=== PATIENT | female | born 1985 | race Caucasian/White ===

== ENCOUNTER 2019-11-19 17:24 | Emergency (ER) | payer OTHER, SELFPAY ==
--- NOTE | ~2019-11-19 | XR_ITS ---
EXAMINATION: XR ankle LT min 3V EXAM DATE: 11/19/2019 17:46 INDICATION: Initial encounter following injury, with pain of the left ankle. TECHNIQUE: Left ankle frontal, lateral and oblique projections obtained and reviewed. There is no pr ior study for comparison. FINDINGS: The left ankle mortise appears intact. Small posterior calcaneal spur. There are no acu te fractures or dislocations identified. There is no subcutaneous gas. The soft tissue is unremarka ble. There are no radiopaque foreign bodies. IMPRESSION: No acute osseous findings. Reviewed, dictated and finalized at location A. IMPRESSION: No acute osseous findings.
[2019-11-19 17:32] VITALS: BP 152/89; PULSE 116; RESP 20; TEMP 36.8; O2SAT 98
--- NOTE | 2019-11-19 17:58 | ED.LOWEXIN ---
HPI - Extremity Injury (Lower) General Chief Complaint: Extremity Injury, Lower Stated Complaint: left ankle swollen/painful Time Seen by Provider: 11/19/19 17:58 Source: patient and RN notes reviewed Mode of arrival: ambulatory Limitations: no limitations History of Present Illness HPI Narrative: 33 old female presents with left ankle injury. Reports prior to arrival she was helping her daughter off of the wall and the daughter fell on her ankle. Reports ankle twisted. Reports pain with walking. Reports swelling. Denies numbness, tingling, decreased range of motion of the digits. MD complaint: ankle injury Related Data Home Medications Medication Instructions Recorded Confirmed No Home Medications 11/19/19 11/19/19 Allergies Allergy/AdvReac Type Severity Reaction Status Date / Time Penicillins Allergy Unknown Hives Verified 11/19/19 17:39 Review of Systems Review of Systems: Narrative: CONSTITUTIONAL: Denies malaise, chills, sweats, or fever. SKIN: Denies redness, bruising MUSCULOSKELETAL: Reports left ankle swelling, pain NEUROLOGIC: Denies numbness, weakness. All systems reviewed & are unremarkable except as noted in HPI and below PMFSH Past Medical History Medical History (Updated 11/19/19 @ 18:00 by María Olguin NP) Hx gestational diabetes Social History Social History Smoking status: Current every day smoker Smoking end date: 05/28/11 Alcohol intake: current Comments At time of signature, agree with nursing past medical, surgical, social and family history. There is no relevant family history pertinent to the presenting complaint Exam Narrative: Exam Narrative: GENERAL: Well-appearing, well-nourished, and in no acute distress. HEAD: Normocephalic, atraumatic. EYES: PERRLA, conjunctivae clear NECK: Supple. CHEST: Speaks in full sentences. No respiratory distress. HEART: Regular rate and rhythm. Normal and equal peripheral pulses. EXTREMITIES: Left ankle, foot, digits have normal strength and sensation, normal range of motion. 5/5 strength with digit flexion and extension. Normal sensation with sensitivity to light touch and pain. Mild medial edema, general tenderness. No open wounds, no skin tenting, no devitalized tissue or atrophy, no trophic changes, no ecchymosis, no obvious deformity, alignment normal, no point tenderness, nearby joints and structures intact. Distal pulses palpable and equal bilaterally, skin warm, dry, pink. Capillary refill less than 3 seconds. SKIN: Warm, dry, no rash. NEURO: Alert and oriented x3. PSYCH: Normal mood and affect Course Course Emergency Course: Patient is aware of diagnosis, understands and agrees to treatment plan. Anticipatory guidance given. Patient agrees to follow-up as directed and is aware of reasons to seek care at the emergency department. Portions of this record may have been created with voice recognition software Vital Signs Vital signs: Vital Signs Temperature 98.3 F 11/19/19 17:32 Pulse Rate 116 H 11/19/19 17:32 Respiratory Rate 20 11/19/19 17:32 Blood Pressure 152/89 H 11/19/19 17:32 Pulse Oximetry 98 11/19/19 17:32 Temperature 98.3 F 11/19/19 17:32 Pulse Rate 116 H 11/19/19 17:32 Respiratory Rate 20 11/19/19 17:32 Blood Pressure 152/89 H 11/19/19 17:32 Pulse Oximetry 98 11/19/19 17:32 Reviewed. Patient has been instructed to follow up with her primary care provider within the next week regarding her elevated blood pressure today. MDM - Extremity Injury (Lower) MDM Narrative Medical decision making narrative: Patients injury and pain is consistent with musculoskeletal etiology. No signs of neurological or vascular compromise on exam. Compartments and tissues are soft without signs of compartment syndrome. Pain is felt appropriate for further evaluation on an outpatient basis. Imaging Data My impression: Images reviewed, interpreted by
--- NOTE | 2019-11-19 18:16 | PC.NURSE ---
PT TAKEN TO RADIOLOGY IN WHEELCHAIR
== END 2019-11-19 18:07 | disposition home or self-care (01) ==
PROVIDERS: Emergency Provider Nurse Practitioner; PCP Family Medicine
DX: S93.402A Sprain of unspecified ligament of left ankle, initial encounter (principal); S96.912A Strain of unspecified muscle and tendon at ankle and foot level, left foot, initial encounter; F17.200 Nicotine dependence, unspecified, uncomplicated; R03.0 Elevated blood-pressure reading, without diagnosis of hypertension; W51.XXXA Accidental striking against or bumped into by another person, initial encounter
CPT/HCPCS: 73610; 99213; G0463

== ENCOUNTER 2021-09-23 08:41 | Emergency (ER) | payer OTHER, SELFPAY ==
[2021-09-23 08:46] VITALS: BP 138/85; PULSE 92; RESP 14; TEMP 36.8; O2SAT 99
--- NOTE | 2021-09-23 09:26 | ED.URI ---
HPI - URI/Sore Throat General Chief Complaint: Upper Respiratory Infection Stated Complaint: Sinus Congestion/Cough Time Seen by Provider: 09/23/21 09:28 Source: patient, RN notes reviewed and old records reviewed Mode of arrival: ambulatory Limitations: no limitations History of Present Illness HPI Narrative: 35-year-old female who presents to [facility] with complaints of 6-day history of sinus pressure and pain, headache, sore throat, some cough with a burning sensation in her chest. Patient reports she has been taking Mucinex, Flonase, Tylenol and ibuprofen for her symptoms without resolution. Patient did do a COVID test yesterday at home which was negative, has had COVID vaccinations and Flu shot. Patient has history of asthma and seasonal allergies takes daily Symbicort, Zyrtec, and Singulair and has Pro Air rescue inhaler. Patient reports that her cough is dry and she has burning sensation in chest with cough, denies any acute dyspnea episodes. MD elicited complaint: cough, sore throat, rhinorrhea, nasal congestion, sinus pain and other (Sore throat) Pertinent past history: asthma and seasonal allergies Onset (ago): day(s) (6) Consistency: progressively worsening Severity: moderate Description of mucous: clear Able to tolerate fluids by mouth: Yes Associated symptoms: headache, rhinorrhea, nasal congestion, sore throat and cough Treatments prior to arrival: acetaminophen, ibuprofen and other (Mucinex DM, Zyrtec,singulair, symbicort and pro-air inhalers) Related Data Home Medications Medication Instructions Recorded Confirmed levonorgestrel 20 mcg/24 hours (7 1 device I-UTERINE ONCE 01/21/20 09/23/21 yrs) 52 mg intrauterine device Allergies Allergy/AdvReac Type Severity Reaction Status Date / Time Penicillins Allergy Unknown Hives Verified 09/23/21 09:41 Review of Systems Review of Systems: CONSTITUTIONAL: Denies fever, chills, or sweats. EYES: Denies visual changes, redness, or discharge. ENT: Positive rhinorrhea, congestion, sore throat, no otalgia. CARDIOVASCULAR: Denies chest pain, palpitations, or edema. RESPIRATORY: Positive for cough denies dyspnea. GASTROINTESTINAL: Denies abdominal pain, nausea, vomiting, or diarrhea. GENITOURINARY: Denies dysuria or hematuria. SKIN: Denies rash or itching. MUSCULOSKELETAL: Denies back pain, joint pain, or myalgia. NEUROLOGIC: Positive headache,no numbness, or weakness. PSYCHIATRIC: Denies anxiety or depression. All systems reviewed & are unremarkable except as noted in HPI and below PMFSH Past Medical History Medical History (Updated 09/24/21 @ 10:15 by Selena Chase NP) Abnormal colonoscopy diverticulosis Cellulitis of right breast Diverticulitis Hx gestational diabetes Left radial fracture Nausea Surgical History Surgical History (Updated 09/24/21 @ 10:15 by Selena Chase NP) H/O dilation and curettage History of cholecystectomy Family History Family History Father Family history of premature coronary heart disease, Onset Age: 56 Hypertension Family history of cardiovascular disease, Onset Age: 56 Mother Diabetes mellitus Family history of obesity Family history of osteoporosis Depression Hypertension Grandparent Diabetes mellitus Family history of osteoporosis Family history of mental disorder Depression Sibling Depression Hypertension Other Family history of suicide Social History Social History (Updated 09/24/21 @ 10:16 by Selena Chase NP) Smoking status: Current some day smoker Additional smoking assessment comments: in process of quitting Alcohol intake: current Substance use type: does not use Gender identity (if verbalized by the patient): Female Comments At time of signature, agree with nursing past medical, surgical, social and family history. There is no relevant family history pertinent to the presenting complaint E
== END 2021-09-23 10:00 | disposition home or self-care (01) ==
PROVIDERS: Emergency Provider Registered Nurse; PCP Family Medicine
DX: J32.9 Chronic sinusitis, unspecified (principal); J45.909 Unspecified asthma, uncomplicated; F17.200 Nicotine dependence, unspecified, uncomplicated
CPT/HCPCS: 99213; G0463

== ENCOUNTER → 2021-09-27 00:23 | Outpatient (CLI) | payer OTHER, SELFPAY ==
[2021-09-27 11:45] LABS: Influenza A QL RT-PCR Negative (Negative); Influenza B QL RT-PCR Negative (Negative); SARS-CoV-2 RNA PCR Negative
== END ==
PROVIDERS: PCP Family Medicine; Visit Provider Physician Assistant
DX: R50.9 Fever, unspecified (principal); Z20.822 Contact with and (suspected) exposure to COVID-19
CPT/HCPCS: 87502; C9803; U0003; U0005

== ENCOUNTER 2021-11-23 09:39 | Outpatient (RCR) | payer OTHER, SELFPAY ==
[2021-11-23] MEDS: ACETAMINOPHEN 325 MG TABLET 650 MG PO (10:03)
[2021-11-23] MEDS: diphenhydrAMINE HCl CAP 25 MG CAPSULE PO (10:04)
[2021-11-23] MEDS: FAMOTIDINE 20 MG TABLET PO (10:04)
[2021-11-23 10:05] VITALS: BP 125/83; PULSE 72; TEMP 36; O2SAT 100
[2021-11-23] MEDS: BEBTELOVIMAB 175 MG/2 ML VIAL IV PUSH (10:22)
[2021-11-23 11:09] VITALS: BP 135/86; PULSE 70; O2SAT 100
== END 2021-11-23 16:00 ==
LOC: AMCINF 09:39
PROVIDERS: PCP Family Medicine; Referring Provider Family Medicine; Visit Provider Internal Medicine Hematology & Oncology
DX: U07.1 COVID-19 (principal); J44.9 Chronic obstructive pulmonary disease, unspecified
CPT/HCPCS: A9270; M0222; Q0222

== ENCOUNTER 2022-01-11 17:35 | Outpatient (CLI) | payer OTHER, SELFPAY ==
--- NOTE | ~2022-01-11 | XR_ITS ---
EXAMINATION: XR chest 2V DATE: 01/11/2022 17:50 INDICATION: Inferior chest pain. TECHNIQUE: Frontal and lateral views of the chest were obtained. COMPARISON: Chest single view 01/09/2018 FINDINGS: There is no pneumonia, pleural effusion, or pneumothorax. The heart size is normal. Surgica l clips in the right upper quadrant are likely from cholecystectomy. IMPRESSION: 1. No acute cardiopulmonary disease. Reviewed, dictated and finalized at location A.
== END 2022-01-11 17:36 | disposition home or self-care (01) ==
PROVIDERS: PCP Physician Assistant; Visit Provider Physician Assistant
DX: U07.1 COVID-19 (principal); J12.82 Pneumonia due to coronavirus disease 2019
CPT/HCPCS: 71046

== ENCOUNTER 2022-03-30 17:48 | Emergency (ER) | payer OTHER, SELFPAY ==
--- NOTE | ~2022-03-30 | XR_ITS ---
XR chest 2V DATE: 03/30/2022 18:34 INDICATION: Cough, congestion for 2 weeks. Asthma. TECHNIQUE: 2 views COMPARISON: 01/11/2022 PA and lateral chest FINDINGS: Normal heart size. No hilar or mediastinal enlargement. No pulmonary infiltrate or consolid ation, pleural effusion or pulmonary vascular congestion or pneumothorax. Included skeletal structure s are unremarkable. IMPRESSION: No active cardiopulmonary disease Reviewed, dictated and finalized at location A.
[2022-03-30 17:58] VITALS: BP 158/98; PULSE 89; RESP 18; TEMP 36.7; O2SAT 97
--- NOTE | 2022-03-30 18:04 | ED.URI ---
HPI - URI/Sore Throat General Chief Complaint: Upper Respiratory Infection Stated Complaint: Sinus Congestion Time Seen by Provider: 03/30/22 18:20 Source: patient and RN notes reviewed Mode of arrival: ambulatory Limitations: no limitations History of Present Illness HPI Narrative: 36-year-old female presents concern for 16 day history of cough, sinus pressure congestion and pain, bilateral ear pressure, wheezing. She reports she has a history of asthma, she takes daily medications. Reports she had COVID and COVID pneumonia over the summer. She denies shortness of breath. Reports a low-grade temperature. MD elicited complaint: cough and nasal congestion Related Data Home Medications Medication Instructions Recorded Confirmed levonorgestrel 20 mcg/24 hours (8 1 device intrauterine ONCE 01/21/20 03/30/22 yrs) 52 mg intrauterine device (Mirena) Allergies Allergy/AdvReac Type Severity Reaction Status Date / Time Penicillins Allergy Unknown Hives Verified 03/30/22 18:14 Review of Systems Review of Systems: CONSTITUTIONAL: Reports malaise, low-grade fever. EYES: Denies visual changes, redness, or discharge. ENT: Reports rhinorrhea, congestion, sinus pain, otalgia CARDIOVASCULAR: Denies chest pain, palpitations, or edema. RESPIRATORY: Reports cough and wheezing. Denies dyspnea. GASTROINTESTINAL: Denies abdominal pain, nausea, vomiting, diarrhea SKIN: Denies rash or itching. MUSCULOSKELETAL: Denies myalgia. NEUROLOGIC: Reports headache. All systems reviewed & are unremarkable except as noted in HPI and below PMFSH Past Medical History Medical History Abnormal colonoscopy diverticulosis Cellulitis of right breast Diverticulitis Hx gestational diabetes Left radial fracture Nausea Surgical History Surgical History H/O dilation and curettage History of cholecystectomy Family History Family History Father Family history of premature coronary heart disease, Onset Age: 56 Hypertension Family history of cardiovascular disease, Onset Age: 56 Mother Diabetes mellitus Family history of obesity Family history of osteoporosis Depression Hypertension Grandparent Diabetes mellitus Family history of osteoporosis Family history of mental disorder Depression Sibling Depression Hypertension Other Family history of suicide Social History Social History (Reviewed 11/21/21 @ 09:56 by María Hurley [facility] Smoking status: Current some day smoker Additional smoking assessment comments: in process of quitting Alcohol intake: current Substance use type: does not use Gender identity (if verbalized by the patient): Female Comments At time of signature, agree with nursing past medical, surgical, social and family history. There is no relevant family history pertinent to the presenting complaint Exam Narrative: GENERAL: Nontoxic-appearing and in no acute distress. HEAD: Normocephalic EYES: PERRLA, conjunctivae clear ENT: Nares clear, turbinates edematous and erythematous. Mucous membranes moist. TM pearly guadalupe with dull light reflex bilaterally; no tragal tenderness. Oropharynx not erythematous without lesions. Tonsils not enlarged and without exudate, no drooling, no hoarseness, no trismus, uvula midline. NECK: Supple. No lymphadenopathy CHEST: Expiratory wheeze throughout, scattered rhonchi, diminished lung bases bilaterally. No rales, or stridor. No respiratory distress, speaks in full sentences. HEART: Regular rate and rhythm. No murmur heard. SKIN: Warm, dry, no rash. NEURO: Alert and oriented x3. PSYCH: Normal mood and affect Course Course Emergency Course: Patient is aware of diagnosis, understands and agrees to treatment plan. Anticipatory guidance given. Patient agrees to follow-up as directed an
== END 2022-03-30 18:45 | disposition home or self-care (01) ==
PROVIDERS: Emergency Provider Nurse Practitioner; PCP Family Medicine
DX: J32.9 Chronic sinusitis, unspecified (principal); J40 Bronchitis, not specified as acute or chronic; F17.290 Nicotine dependence, other tobacco product, uncomplicated; Z86.16 Personal history of COVID-19
CPT/HCPCS: 71046; 99213; G0463

== ENCOUNTER 2022-06-01 14:30 | Outpatient (RCR) | payer OTHER, SELFPAY ==
--- NOTE | 2022-06-01 15:44 | PCPTNOTE ---
Patient did not show up for scheduled appointment this date.
== END 2022-08-15 08:22 | disposition home or self-care (01) ==
LOC: ANHPT 14:30
PROVIDERS: PCP Family Medicine; Visit Provider Physician Assistant
DX: M54.9 Dorsalgia, unspecified (principal); M79.659 Pain in unspecified thigh
CPT/HCPCS: 99199

== ENCOUNTER 2022-06-15 10:38 | Emergency (ER) | payer OTHER, SELFPAY ==
[2022-06-15 10:38] VITALS: BP 149/78; PULSE 98; RESP 20; TEMP 36.6; O2SAT 99
--- NOTE | 2022-06-15 10:40 | ED.URI ---
HPI - URI/Sore Throat General Chief Complaint: Upper Respiratory Infection Stated Complaint: throat and ear pain Time Seen by Provider: 06/15/22 10:41 Source: patient and RN notes reviewed History of Present Illness HPI Narrative: Patient is a 36-year-old female presents to urgent care with complaints of sore throat left ear pain with headache that started yesterday. Patient has been taking Zyrtec and naproxen for her symptoms. Denies any fever, nausea, vomiting. No other acute complaints. No acute distress noted. Mother aware of the plan of care. Some parts of this dictation were generated by voice recognition software and may contain typographical and/or grammatical inaccuracies. Related Data Home Medications Medication Instructions Recorded Confirmed levonorgestrel 20 mcg/24 hours (8 1 device intrauterine ONCE 01/21/20 06/15/22 yrs) 52 mg intrauterine device (Mirena) montelukast 10 mg tablet 10 mg PO DAILY 06/15/22 06/15/22 trazodone 50 mg tablet 50 mg PO DAILY 06/15/22 06/15/22 Allergies Allergy/AdvReac Type Severity Reaction Status Date / Time Penicillins Allergy Unknown Hives Verified 06/15/22 10:45 Review of Systems Review of Systems: CONSTITUTIONAL: Denies fever, chills, or sweats. EYES: Denies visual changes, redness, or discharge. ENT: Reports of left otalgia and sore throat CARDIOVASCULAR: Denies chest pain, palpitations, or edema. RESPIRATORY: Denies cough or dyspnea. GASTROINTESTINAL: Denies abdominal pain, nausea, vomiting, or diarrhea. GENITOURINARY: Denies dysuria or hematuria. SKIN: Denies rash or itching. MUSCULOSKELETAL: Denies back pain, joint pain, or myalgia. NEUROLOGIC: reports of headache All other systems reviewed are negative, except as documented in HPI. [facility] Past Medical History Medical History Abnormal colonoscopy diverticulosis Cellulitis of right breast Diverticulitis Hx gestational diabetes Left radial fracture Nausea Surgical History Surgical History H/O dilation and curettage History of cholecystectomy Family History Family History Father Family history of premature coronary heart disease, Onset Age: 56 Hypertension Family history of cardiovascular disease, Onset Age: 56 Mother Diabetes mellitus Family history of obesity Family history of osteoporosis Depression Hypertension Grandparent Diabetes mellitus Family history of osteoporosis Family history of mental disorder Depression Sibling Depression Hypertension Other Family history of suicide Social History Social History (Updated 04/24/22 @ 09:07 by Kaylee Armendariz MA) Smoking packs per day: 0.2 Smoking cigarettes per day: 4.0 Smoking status: Current some day smoker Tobacco type: cigarettes Additional smoking assessment comments: in process of quitting Alcohol intake: current Substance use type: does not use Lack of Transportation: No Lack of Food: Never True Current Housing: I Have Housing Concerned About Future Housing: No Difficulty Paying Gas/Electric Bills: No Difficulty Paying for Meds: No Currently Unemployed: No Education: Trade/Vocational Certificate Difficulty w/ Childcare or Family Care: No Gender identity (if verbalized by the patient): Female Comments At the time of my signature, I reviewed and agree with the nursing past medical, surgical, social, and family history. There is no relevant family history pertinent to the patient complaint. Exam Narrative: GENERAL: This is a well-nourished, well-developed patient, in no apparent distress. HEAD: normocephalic, atraumatic. EYES: PERRL. Sclera clear/white. Vision is grossly intact. EARS: External ears normal, auditory canals clear and without drainage, moderate eustachian tube dysfunct
== END 2022-06-15 11:30 | disposition home or self-care (01) ==
PROVIDERS: Emergency Provider Nurse Practitioner Family; PCP Family Medicine
DX: H66.92 Otitis media, unspecified, left ear (principal); J02.0 Streptococcal pharyngitis; F17.210 Nicotine dependence, cigarettes, uncomplicated
CPT/HCPCS: 87880; 99213; G0463

== ENCOUNTER 2022-07-18 16:20 | Emergency (ER) | payer OTHER, SELFPAY ==
[2022-07-18 16:24] VITALS: BP 144/77; PULSE 84; RESP 20; TEMP 36.6; O2SAT 98
--- NOTE | 2022-07-18 17:08 | ED.URI ---
HPI - URI/Sore Throat General Chief Complaint: Upper Respiratory Infection Stated Complaint: Chest Congestion Time Seen by Provider: 07/18/22 17:00 Source: patient, RN notes reviewed and old records reviewed Mode of arrival: ambulatory Limitations: no limitations History of Present Illness HPI Narrative: 36 year old female who [facility] with complaints of sore throat since Sunday, cough which is at times deep and productive with fatigue, headache,body aches, some nasal congestion and drainage fot past .. Patient does have a history of asthma and bronchitis and reports that she has noted some intermittent wheezing.Patient states that she had strep throat about a month ago.Patient reports no known fevers, states that she has been using her inhaler. MD elicited complaint: cough and sore throat Pertinent past history: asthma, seasonal allergies and other (bronchitis) Onset (ago): day(s) (2) Related Data Home Medications Medication Instructions Recorded Confirmed levonorgestrel 21 mcg/24 hours (8 1 device intrauterine ONCE 01/21/20 06/15/22 yrs) 52 mg intrauterine device (Mirena) montelukast 10 mg tablet 10 mg PO DAILY 06/15/22 06/15/22 trazodone 50 mg tablet 50 mg PO DAILY 06/15/22 06/15/22 Allergies Allergy/AdvReac Type Severity Reaction Status Date / Time Penicillins Allergy Unknown Hives Verified 07/18/22 16:25 Review of Systems Review of Systems: CONSTITUTIONAL: Denies malaise, chills, sweats, or fever. EYES: Denies visual changes, redness, or discharge. ENT: Reports rhinorrhea, congestion, sinus pain, no otalgia positive sore throat. CARDIOVASCULAR: Denies chest pain, palpitations, or edema. RESPIRATORY: Reports cough.? Denies dyspnea has noted some wheezing. GASTROINTESTINAL: Denies abdominal pain, nausea, vomiting, diarrhea SKIN: Denies rash or itching. MUSCULOSKELETAL:Reports myalgia. NEUROLOGIC:Reports headache. All systems reviewed & are unremarkable except as noted in HPI and below PMFSH Past Medical History Medical History (Updated 07/20/22 @ 06:58 by Selena Chase NP) Abnormal colonoscopy diverticulosis Asthma Bronchitis Cellulitis of right breast Diverticulitis Hx gestational diabetes Left radial fracture Nausea Surgical History Surgical History H/O dilation and curettage History of cholecystectomy Family History Family History Father Family history of premature coronary heart disease, Onset Age: 56 Hypertension Family history of cardiovascular disease, Onset Age: 56 Mother Diabetes mellitus Family history of obesity Family history of osteoporosis Depression Hypertension Grandparent Diabetes mellitus Family history of osteoporosis Family history of mental disorder Depression Sibling Depression Hypertension Other Family history of suicide Social History Social History Smoking packs per day: 0.2 Smoking cigarettes per day: 4.0 Smoking status: Current some day smoker Tobacco type: cigarettes Additional smoking assessment comments: in process of quitting Alcohol intake: current Substance use type: does not use Lack of Transportation: No Lack of Food: Never True Current Housing: I Have Housing Concerned About Future Housing: No Difficulty Paying Gas/Electric Bills: No Difficulty Paying for Meds: No Currently Unemployed: No Education: Trade/Vocational Certificate Difficulty w/ Childcare or Family Care: No Gender identity (if verbalized by the patient): Female Comments At time of signature, agree with nursing past medical, surgical, social and family history. There is no relevant family history pertinent to the presenting complaint Exam Narrative: GENERAL: Well-appearing, well-nourished, and in no acute distress.
== END 2022-07-18 17:41 | disposition home or self-care (01) ==
PROVIDERS: Emergency Provider Registered Nurse; PCP Family Medicine
DX: J06.9 Acute upper respiratory infection, unspecified (principal); R05.9 Cough, unspecified; F17.210 Nicotine dependence, cigarettes, uncomplicated; J45.909 Unspecified asthma, uncomplicated
CPT/HCPCS: 87081; 87880; 99213; G0463

== ENCOUNTER 2022-10-01 13:37 | Emergency (ER) | payer OTHER, SELFPAY ==
[2022-10-01 13:41] VITALS: BP 126/77; PULSE 82; RESP 20; TEMP 36.6; O2SAT 98
--- NOTE | 2022-10-01 14:08 | ED.GENADULT ---
HPI - General Adult General Chief complaint: Upper Respiratory Infection Stated complaint: sore throat / ears Source: patient Mode of arrival: ambulatory Limitations: no limitations History of Present Illness HPI narrative: Patient presents for evaluation of sick symptoms for last 2 days. Symptoms include sore throat and ear pain. No fever, chills, nausea, vomiting, diarrhea. Her daughter is being evaluated here for similar symptoms. Patient does have a mild cough. She has tried taking Erin-D, Flonase, Tylenol, ibuprofen for symptoms with only mild relief thereafter. No additional complaints or concerns. Related Data Home Medications Medication Instructions Recorded Confirmed levonorgestrel 21 mcg/24 hours (8 1 device intrauterine ONCE 01/21/20 10/01/22 yrs) 52 mg intrauterine device (Mirena) montelukast 10 mg tablet 10 mg PO DAILY 06/15/22 10/01/22 trazodone 50 mg tablet 50 mg PO DAILY 06/15/22 10/01/22 Allergies Allergy/AdvReac Type Severity Reaction Status Date / Time Penicillins Allergy Unknown Hives Verified 10/01/22 14:04 Review of Systems Review of Systems: CONSTITUTIONAL: Denies fever, chills, or sweats. EYES: Denies visual changes, redness, or discharge. ENT: Reports sore throat and bilateral ear pain. CARDIOVASCULAR: Denies chest pain, palpitations, or edema. RESPIRATORY: Reports cough. Denies shortness of breath. GASTROINTESTINAL: Denies abdominal pain, nausea, vomiting, or diarrhea. GENITOURINARY: Denies dysuria or hematuria. SKIN: Denies rash or itching. MUSCULOSKELETAL: Denies back pain, joint pain, or myalgia. NEUROLOGIC: Denies headache, numbness, dizziness, or weakness. PSYCHIATRIC: Denies anxiety or depression. [facility] Past Medical History Medical History (Updated 10/01/22 @ 14:11 by JOSHUA Clements, TERRIE) Abnormal colonoscopy diverticulosis Asthma Bronchitis Cellulitis of right breast Diverticulitis Hx gestational diabetes Left radial fracture Nausea Surgical History Surgical History H/O dilation and curettage History of History of cholecystectomy Family History Family History Father Family history of premature coronary heart disease, Onset Age: 56 Hypertension Family history of cardiovascular disease, Onset Age: 56 Mother Diabetes mellitus Family history of obesity Family history of osteoporosis Depression Hypertension Grandparent Diabetes mellitus Family history of osteoporosis Family history of mental disorder Depression Sibling Depression Hypertension Sibling Suicide Other Suicide Other Family history of suicide Social History Social History Smoking packs per day: 0.2 Smoking cigarettes per day: 4.0 Smoking status: Current some day smoker Tobacco type: cigarettes Additional smoking assessment comments: in process of quitting Alcohol intake: current Substance use type: does not use Lack of Transportation: No Lack of Food: Never True Current Housing: I Have Housing Concerned About Future Housing: No Difficulty Paying Gas/Electric Bills: No Difficulty Paying for Meds: No Currently Unemployed: No Education: Trade/Vocational Certificate Difficulty w/ Childcare or Family Care: No Gender identity (if verbalized by the patient): Female Exam Narrative: GENERAL: Well-appearing, well-nourished, and in no acute distress. HEAD: Normocephalic, atraumatic. EYES: PERRLA and EOMI. ENT: Nares clear, no rhinorrhea or epistaxis. Mucous membranes moist. Posterior pharyngeal erythema and white exudate. Uvula is midline. Bilateral TMs pearly guadalupe nonbulging NECK: Supple. No adenopathy or masses. No carotid bruits or JVD CHEST: Clear to auscultation. No respiratory distress. No whe
== END 2022-10-01 14:23 | disposition home or self-care (01) ==
PROVIDERS: Emergency Provider Nurse Practitioner; PCP Family Medicine
DX: J02.0 Streptococcal pharyngitis (principal); F17.210 Nicotine dependence, cigarettes, uncomplicated; J45.909 Unspecified asthma, uncomplicated
CPT/HCPCS: 87880; 99213; G0463

== ENCOUNTER 2023-01-26 08:06 | Emergency (ER) | payer OTHER, SELFPAY ==
[2023-01-26 08:12] VITALS: BP 133/80; PULSE 85; RESP 14; TEMP 36.7; O2SAT 99
--- NOTE | 2023-01-26 08:13 | ED.URI ---
HPI - URI/Sore Throat General Chief Complaint: Upper Respiratory Infection Stated Complaint: sinus Infection Time Seen by Provider: 01/26/23 08:11 Source: patient and RN notes reviewed Mode of arrival: ambulatory Limitations: no limitations History of Present Illness HPI Narrative: 37-year-old female presents with concern of for a day history of sinus congestion, pressure, pain, headache. She reports temperature of 100?. She she has been taking Sudafed reports she has been taking Erin D, Mucinex DM and Flonase without relief. MD elicited complaint: nasal congestion and sinus pain Related Data Home Medications Medication Instructions Recorded Confirmed levonorgestrel 21 mcg/24 hours (8 1 device intrauterine ONCE 01/21/20 01/26/23 yrs) 52 mg intrauterine device (Mirena) albuterol sulfate 90 mcg/actuation 2 puff inhalation QID 01/26/23 01/26/23 aerosol inhaler (ProAir HFA) budesonide-formoterol HFA 160 2 puff inhalation Q12H 01/26/23 01/26/23 mcg-4.5 mcg/actuation aerosol inhaler (Symbicort) cyclobenzaprine 5 mg tablet 5 mg PO TID PRN Muscle Spasm 01/26/23 01/26/23 Allergies Allergy/AdvReac Type Severity Reaction Status Date / Time Penicillins Allergy Unknown Hives Verified 01/26/23 08:22 Review of Systems Review of Systems: CONSTITUTIONAL: Reports malaise, low-grade fever. EYES: Denies visual changes, redness, or discharge. ENT: Reports rhinorrhea, congestion, sinus pain. Denies otalgia and sore throat. CARDIOVASCULAR: Denies chest pain, palpitations, or edema. RESPIRATORY: Denies cough. Denies dyspnea. GASTROINTESTINAL: Denies abdominal pain, nausea, vomiting, diarrhea SKIN: Denies rash or itching. MUSCULOSKELETAL: Denies myalgia. NEUROLOGIC: Reports headache. All systems reviewed & are unremarkable except as noted in HPI and below PMFSH Past Medical History Medical History (Updated 01/26/23 @ 08:29 by María Olguin NP) Abnormal colonoscopy diverticulosis Asthma Bronchitis Cellulitis of right breast Diverticulitis Hx gestational diabetes Left radial fracture Nausea Surgical History Surgical History H/O dilation and curettage History of History of cholecystectomy Family History Family History Father Family history of premature coronary heart disease, Onset Age: 56 Hypertension Family history of cardiovascular disease, Onset Age: 56 Mother Diabetes mellitus Family history of obesity Family history of osteoporosis Depression Hypertension Grandparent Diabetes mellitus Family history of osteoporosis Family history of mental disorder Depression Sibling Depression Hypertension Sibling Suicide Other Suicide Other Family history of suicide Social History Social History Smoking packs per day: 0.2 Smoking cigarettes per day: 4.0 Smoking status: Current some day smoker Tobacco type: cigarettes Additional smoking assessment comments: in process of quitting Alcohol intake: current Substance use type: does not use Lack of Transportation: No Lack of Food: Never True Current Housing: I Have Housing Concerned About Future Housing: No Difficulty Paying Gas/Electric Bills: No Difficulty Paying for Meds: No Currently Unemployed: No Education: Trade/Vocational Certificate Difficulty w/ Childcare or Family Care: No Gender identity (if verbalized by the patient): Female Comments At time of signature, agree with nursing past medical, surgical, social and family history. There is no relevant family history pertinent to the presenting complaint Exam Narrative: GENERAL: Well-appearing, well-nourished, and in no acute distress. HEAD: Normocephalic EYES: PERRLA, conjunctivae clear ENT: Nares clear, turbina
== END 2023-01-26 08:31 | disposition home or self-care (01) ==
PROVIDERS: Emergency Provider Nurse Practitioner; PCP Family Medicine
DX: J01.90 Acute sinusitis, unspecified (principal); B96.89 Other specified bacterial agents as the cause of diseases classified elsewhere; J45.909 Unspecified asthma, uncomplicated; F17.210 Nicotine dependence, cigarettes, uncomplicated
CPT/HCPCS: 99213; G0463

== ENCOUNTER 2023-04-24 10:22 | Outpatient (CLI) | payer OTHER, SELFPAY ==
[2023-04-24 13:46] LABS: Anion Gap 8 mmol/L (8-16); Blood Urea Nitrogen 8 mg/dL (7-17); Calcium 9.1 mg/dL (8.4-10.2); Carbon Dioxide 27 mmol/L (22-30); Chloride 106 mmol/L (98-107); Cholesterol 174 mg/dL (0-200); Estimated Glomerular Filt Rate > 60; Glucose 75 mg/dL (65-110); HDL Direct 40 mg/dL; Potassium 4.3 mmol/L (3.4-5.0); Sodium 141 mmol/L (137-145); Triglycerides 130 mg/dL (<150)
[2023-04-24 13:58] LABS: LDL Cholesterol Direct 108 mg/dL
== END 2023-04-24 10:23 | disposition home or self-care (01) ==
LOC: ANHGOSHLAB 10:24
PROVIDERS: PCP Family Medicine; Visit Provider Family Medicine
DX: R07.9 Chest pain, unspecified (principal)
CPT/HCPCS: 36415; 80048; 80061; 84443

== ENCOUNTER 2023-04-29 08:32 | Emergency (ER) | payer OTHER, SELFPAY ==
[2023-04-29 08:40] VITALS: BP 167/94; PULSE 71; RESP 20; TEMP 36.3; O2SAT 97
--- NOTE | 2023-04-29 09:18 | ED.GENADULT ---
HPI - General Adult General Chief complaint: Upper Respiratory Infection Stated complaint: sore throat,ear ache,sinus yolanda Source: patient Mode of arrival: ambulatory Limitations: no limitations History of Present Illness HPI narrative: Patient presents for evaluation of sick symptoms for last 5 days. She initially had pain in her left ear. She then developed a sore throat and left sided cervical lymphadenopathy. She developed a fever, with reported temp of 101F at home. She has a mild cough. Denies SOB. No chills, nausea, vomiting, diarrhea, hearing loss, drainage from the ears and tinnitus. She has done salt water gargles. She does admit to vaping. Related Data Home Medications Medication Instructions Recorded Confirmed levonorgestrel 21 mcg/24 hours (8 1 device intrauterine ONCE 01/21/20 04/29/23 yrs) 52 mg intrauterine device (Mirena) cetirizine 10 mg tablet (Zyrtec) 10 mg PO DAILY 04/29/23 04/29/23 trazodone 50 mg tablet 50 mg PO HS 04/29/23 04/29/23 Allergies Allergy/AdvReac Type Severity Reaction Status Date / Time Penicillins Allergy Unknown Hives Verified 04/29/23 08:53 Review of Systems Review of Systems: CONSTITUTIONAL:Reports fever. Denies chills, or sweats. EYES: Denies visual changes, redness, or discharge. ENT: Reports left sided ear pain, sore throat and left sided cervical lymphadenopathy CARDIOVASCULAR: Denies chest pain, palpitations, or edema. RESPIRATORY: Reports cough. Denies SOB> GASTROINTESTINAL: Denies abdominal pain, nausea, vomiting, or diarrhea. GENITOURINARY: Denies dysuria or hematuria. SKIN: Denies rash or itching. MUSCULOSKELETAL: Denies back pain, joint pain, or myalgia. NEUROLOGIC: Denies headache, numbness, dizziness, or weakness. PSYCHIATRIC: Denies anxiety or depression. [facility] Past Medical History Medical History Abnormal colonoscopy diverticulosis Asthma Bronchitis Cellulitis of right breast Diverticulitis Hx gestational diabetes Left radial fracture Nausea Surgical History Surgical History H/O dilation and curettage History of History of cholecystectomy Family History Family History Father Family history of premature coronary heart disease, Onset Age: 56 Hypertension Family history of cardiovascular disease, Onset Age: 56 Mother Diabetes mellitus Family history of obesity Family history of osteoporosis Depression Hypertension Grandparent Diabetes mellitus Family history of osteoporosis Family history of mental disorder Depression Sibling Depression Hypertension Sibling Suicide Other Suicide Other Family history of suicide Social History Social History Smoking status: Current every day smoker Tobacco type: e-cigarettes/vaping Additional smoking assessment comments: in process of quitting Alcohol intake: current Alcohol use details: rarely Substance use: never Substance use type: does not use Lack of Transportation: No Lack of Food: Never True Current Housing: I Have Housing Concerned About Future Housing: No Difficulty Paying Gas/Electric Bills: No Difficulty Paying for Meds: No Currently Unemployed: No Education: Trade/Vocational Certificate Difficulty w/ Childcare or Family Care: No Gender identity (if verbalized by the patient): Female Exam Narrative: GENERAL: Well-appearing, well-nourished, and in no acute distress. HEAD: Normocephalic, atraumatic. EYES: PERRLA and EOMI. ENT: Nares clear, no rhinorrhea or epistaxis. Mucous membranes moist. Posterior pharyngeal erythema without exudate. Uvula is midline. Right TM pearly guadalupe nonbulging. Left TM is erythematous and bulging with visible a
== END 2023-04-29 09:18 | disposition home or self-care (01) ==
PROVIDERS: Emergency Provider Nurse Practitioner; PCP Family Medicine
DX: H66.92 Otitis media, unspecified, left ear (principal); F17.290 Nicotine dependence, other tobacco product, uncomplicated; J45.909 Unspecified asthma, uncomplicated
CPT/HCPCS: 87081; 87880; 99213; G0463

== ENCOUNTER 2023-07-01 09:10 | Emergency (ER) | payer OTHER, SELFPAY ==
[2023-07-01 09:19] VITALS: BP 150/76; PULSE 97; RESP 20; TEMP 36.7; O2SAT 97
--- NOTE | 2023-07-01 09:53 | ED.URI ---
HPI - URI/Sore Throat General Chief Complaint: Upper Respiratory Infection Stated Complaint: Chest Congestion/Sinus Congestion/Ear Pain Time Seen by Provider: 07/01/23 09:53 Source: patient Mode of arrival: ambulatory Limitations: no limitations History of Present Illness HPI Narrative: 37 year old female presents to express care with complaints of sinus pressure with congestion, right ear pain., cough with some noted wheezing. Patient reports she seen her physician on 06/21 and was placed on antibiotic and steroid which she completed but does not feel like she is getting better. Patient has been using her inhaler and has also been taking Erin D for her sinus congestion and drainage. Patient denies any body aches any chills or fevers. MD elicited complaint: cough, rhinorrhea, nasal congestion and other (Right ear pain) Pertinent past history: asthma and seasonal allergies Onset (ago): week(s) (2) Pain scale (0-10): 5 Able to tolerate fluids by mouth: Yes Treatments prior to arrival: other (inhaler AllegraD) Related Data Home Medications Medication Instructions Recorded Confirmed levonorgestrel 21 mcg/24 hours (8 1 device intrauterine ONCE 01/21/20 07/01/23 yrs) 52 mg intrauterine device (Mirena) Allergies Allergy/AdvReac Type Severity Reaction Status Date / Time Penicillins Allergy Unknown Hives Verified 07/01/23 09:33 Review of Systems Review of Systems: CONSTITUTIONAL: Denies malaise, chills, sweats, or fever. EYES: Denies visual changes, redness, or discharge. ENT: Reports rhinorrhea, congestion, sinus pain,right otalgia and no sore throat. CARDIOVASCULAR: Denies chest pain, palpitations, or edema. RESPIRATORY: Reports cough.? Denies acute dyspnea, some noted wheezing. GASTROINTESTINAL: Denies abdominal pain, nausea, vomiting, diarrhea SKIN: Denies rash or itching. MUSCULOSKELETAL: Denies myalgia. NEUROLOGIC: Denies headache. All systems reviewed & are unremarkable except as noted in HPI and below PMFSH Past Medical History Medical History Abnormal colonoscopy diverticulosis Asthma Bronchitis Cellulitis of right breast Diverticulitis Hx gestational diabetes Left radial fracture Nausea Surgical History Surgical History H/O dilation and curettage History of History of cholecystectomy Family History Family History Father Family history of premature coronary heart disease, Onset Age: 56 Hypertension Family history of cardiovascular disease, Onset Age: 56 Mother Diabetes mellitus Family history of obesity Family history of osteoporosis Depression Hypertension Grandparent Diabetes mellitus Family history of osteoporosis Family history of mental disorder Depression Sibling Depression Hypertension Sibling Suicide Other Suicide Other Family history of suicide Social History Social History Smoking status: Current every day smoker Tobacco type: e-cigarettes/vaping Additional smoking assessment comments: in process of quitting Alcohol intake: current Alcohol use details: rarely Substance use: never Substance use type: does not use Lack of Transportation: No Lack of Food: Never True Current Housing: I Have Housing Concerned About Future Housing: No Difficulty Paying Gas/Electric Bills: No Difficulty Paying for Meds: No Currently Unemployed: No Education: Trade/Vocational Certificate Difficulty w/ Childcare or Family Care: No Gender identity (if verbalized by the patient): Female Comments At time of signature, agree with nursing past medical, surgical, social and family history. There is no relevant family history pertinent to the presenting complaint
== END 2023-07-01 10:18 | disposition home or self-care (01) ==
PROVIDERS: Emergency Provider Registered Nurse; PCP Family Medicine
DX: H66.91 Otitis media, unspecified, right ear (principal); J40 Bronchitis, not specified as acute or chronic; F17.290 Nicotine dependence, other tobacco product, uncomplicated; J45.909 Unspecified asthma, uncomplicated
CPT/HCPCS: 99213; G0463

== ENCOUNTER 2024-01-30 08:26 | Emergency (ER) | payer OTHER, SELFPAY ==
[2024-01-30 08:32] VITALS: BP 135/78; PULSE 74; RESP 18; TEMP 36.7; O2SAT 99
--- NOTE | 2024-01-30 08:34 | ED.ABDPAIN ---
HPI - Abdominal Pain General Chief Complaint: Abdominal Pain Stated Complaint: Abdominal Pain Time Seen by Provider: 01/30/24 09:05 Source: patient and RN notes reviewed Mode of arrival: ambulatory Limitations: no limitations History of Present Illness HPI narrative: 38-year-old female presents concern for left lower quadrant abdominal pain, diarrhea. Reports history of diverticulitis. Reports nausea without vomiting. Reports the pain comes in wheeze. Reports a feel like contractions. She started liquid diet yesterday. MD elicited complaint: abdominal pain Related Data Home Medications Medication Instructions Recorded Confirmed trazodone 50 mg tablet 50 mg PO HS PRN Insomnia 01/30/24 01/30/24 Allergies Allergy/AdvReac Type Severity Reaction Status Date / Time Penicillins Allergy Unknown Hives Verified 08/30/23 14:58 Review of Systems Review of Systems: CONSTITUTIONAL: Denies malaise, chills, sweats, or fever. ENT: Denies rhinorrhea, congestion, sinus pain, otalgia or sore throat. CARDIOVASCULAR: Denies chest pain, palpitations, or edema. RESPIRATORY: Denies cough or dyspnea. GASTROINTESTINAL: Reports left lower quadrant abdominal pain, nausea, diarrhea. Denies vomiting GENITOURINARY: Denies dysuria or hematuria. MUSCULOSKELETAL: Denies myalgia. NEUROLOGIC: Denies headache. All systems reviewed & are unremarkable except as noted in HPI and below PMFSH Past Medical History Medical History Abnormal colonoscopy diverticulosis Asthma Bronchitis Cellulitis of right breast Diverticulitis Hx gestational diabetes Left radial fracture Nausea Surgical History Surgical History H/O dilation and curettage History of History of cholecystectomy Family History Family History Father Family history of premature coronary heart disease, Onset Age: 56 Hypertension Family history of cardiovascular disease, Onset Age: 56 Mother Diabetes mellitus Family history of obesity Family history of osteoporosis Depression Hypertension Grandparent Diabetes mellitus Family history of osteoporosis Family history of mental disorder Depression Sibling Depression Hypertension Sibling Suicide Other Suicide Other Family history of suicide Social History Social History (Updated 08/30/23 @ 15:01 by Alicia Helm MA) Smoking packs per day: 0.5 Smoking cigarettes per day: 10.0 Smoking status: Current every day smoker Tobacco type: cigarettes Additional smoking assessment comments: in process of quitting Alcohol intake: current Alcohol use details: rarely Substance use: never Substance use type: does not use Do You Feel Safe in your Home?: Yes Lack of Transportation: No Lack of Food: Never True Current Housing: I Have Housing Concerned About Future Housing: No Difficulty Paying Gas/Electric Bills: No Difficulty Paying for Meds: No Currently Unemployed: No Education: Trade/Vocational Certificate Difficulty w/ Childcare or Family Care: No Gender identity (if verbalized by the patient): Female Comments At time of signature, agree with nursing past medical, surgical, social and family history. There is no relevant family history pertinent to the presenting complaint Exam Narrative: GENERAL: Well-appearing, well-nourished, and in no acute distress. HEAD: Normocephalic, atraumatic. EYES: PERRLA, conjunctivae clear, and EOMI. ENT: Nares clear, turbinates pink, no rhinorrhea or epistaxis. Mucous membranes moist. Oropharynx without edema, erythema, or lesions. Tonsils not enlarged and without exudate. NECK: Supple. No lymphadenopathy CHEST: Speaks in full sentences. No respiratory distress. HEART: Regular rate and rhythm. ABDOMEN: Soft,
== END 2024-01-30 09:15 | disposition short-term general hospital (02) ==
PROVIDERS: Emergency Provider Nurse Practitioner; PCP Family Medicine
DX: R10.32 Left lower quadrant pain (principal); J45.909 Unspecified asthma, uncomplicated; F17.210 Nicotine dependence, cigarettes, uncomplicated
CPT/HCPCS: 99212; G0463

== ENCOUNTER 2024-04-07 09:08 | Emergency (ER) | payer OTHER, SELFPAY ==
--- NOTE | ~2024-04-07 | XR_ITS ---
EXAMINATION: XR chest 2V DATE: 04/07/2024 10:08 INDICATION: Cough. TECHNIQUE: Frontal and lateral views of the chest were obtained. COMPARISON: Chest 2 views 03/30/2022 FINDINGS: There is no pneumonia, pleural effusion, or pneumothorax. The heart size is normal. There a re surgical clips in the abdomen. IMPRESSION: 1. No acute cardiopulmonary disease. Reviewed, dictated and finalized at location A. ING PROJECT COORDINATOR
[2024-04-07 09:14] VITALS: BP 127/99; PULSE 73; RESP 20; TEMP 36.8; O2SAT 98
--- NOTE | 2024-04-07 09:50 | ED.URI ---
HPI - URI/Sore Throat General Chief Complaint: Upper Respiratory Infection Stated Complaint: upper respiratory Source: patient Mode of arrival: ambulatory Limitations: no limitations History of Present Illness HPI Narrative: 38-year-old female presented for complaint of cough, Wheezing, fatigue, and nasal congestion for about 3 days. Endorses exposure to pneumonia. Has been taking inhalers, Zyrtec and Flonase as she usually gets severe allergies in the fall. Denies n/v/d/f/c. Smokes 0.5ppd. Related Data Allergies Allergy/AdvReac Type Severity Reaction Status Date / Time Penicillins Allergy Unknown Hives Verified 08/30/23 14:58 Review of Systems Review of Systems: CONSTITUTIONAL: Denies body aches, fever, chills, or sweats. EYES: Denies visual changes, redness, or discharge. ENT: reports rhinorrhea, congestion, denies sore throat, or otalgia. CARDIOVASCULAR: Denies chest pain, palpitations, or edema. RESPIRATORY: Reports cough, sob, wheezing. GASTROINTESTINAL: Denies abdominal pain, nausea, vomiting, or diarrhea. MUSCULOSKELETAL: Denies back pain, joint pain, or myalgia. NEUROLOGIC: Denies headache All systems reviewed & are unremarkable except as noted in HPI and below PMFSH Past Medical History Medical History Abnormal colonoscopy diverticulosis Asthma Bronchitis Cellulitis of right breast Diverticulitis Hx gestational diabetes Left radial fracture Nausea Surgical History Surgical History H/O dilation and curettage History of History of cholecystectomy Family History Family History Father Family history of premature coronary heart disease, Onset Age: 56 Hypertension Family history of cardiovascular disease, Onset Age: 56 Mother Diabetes mellitus Family history of obesity Family history of osteoporosis Depression Hypertension Grandparent Diabetes mellitus Family history of osteoporosis Family history of mental disorder Depression Sibling Depression Hypertension Sibling Suicide Other Suicide Other Family history of suicide Social History Social History Smoking packs per day: 0.5 Smoking cigarettes per day: 10.0 Smoking status: Current every day smoker Tobacco type: cigarettes Additional smoking assessment comments: in process of quitting Alcohol intake: current Alcohol use details: rarely Substance use: never Substance use type: does not use Do You Feel Safe in your Home?: Yes Lack of Transportation: No Lack of Food: Never True Current Housing: I Have Housing Concerned About Future Housing: No Difficulty Paying Gas/Electric Bills: No Difficulty Paying for Meds: No Currently Unemployed: No Education: Trade/Vocational Certificate Difficulty w/ Childcare or Family Care: No Gender identity (if verbalized by the patient): Female Comments At time of signature, I have reviewed and agree with nursing past medical, surgical, social and family history unless otherwise noted. Please see nursing chart for further information. There is no relevant family history pertinent to the presenting complaint Exam Narrative: GENERAL: Well-appearing, in no acute distress. EYES: EOMI. No redness or drainage. Conjunctivae normal. ENT: Mucous membranes pink and moist. No rhinorrhea. TMs normal color with clear effusion bilaterally. Throat normal. Uvula midline. NECK: Normal AROM. Supple. CHEST: No respiratory distress. Wheezing to all lauren. HEART: Regular rate and rhythm. No murmur appreciated. SKIN: Warm, dry, Capillary refill normal. Normal skin turgor. NEURO: Alert and oriented x3. Gait steady. PSYCH: Normal affect. Course Course Emergency Course: Patient is aware of diagnosis, understands and agrees to treatment plan. Anticipatory guidance given. Patient agrees to follow-up as directed and is aware of reasons to seek care at the emergency department. Portions of this record may have been created with voice recognition software Level of Care: Express Care Visit Vital Signs Vital signs: Vital Signs Temperature 98.3 F 04/07/24 09:14 Pulse Rate 73 04/07/24 09:14 Respiratory Rate 20 04/07/24 09:14 Blood Pressure 127/99 H 04/07/24 09:14 Pulse Oximetry 98 04/07/24 09:14 Oxygen Delivery Room Air 04/07/24 09:14 Temperature 98.3 F 04/07/24 09:14 Pulse Rate 73 04/07/24 09:14 Respiratory Rate 20 04/07/24 09:14 Blood Pressure 127/99 H 04/07/24 09:14 Pulse Oximetry 98 04/07/24 09:14 Oxygen Delivery Room Air 04/07/24 09:14 MDM - URI/Sore Throat MDM Narrative Medical decision making narrative: Discussed physical exam findings and chest x-ray. Rx's reviewed Advised supportive measures and signs/symptoms to go to the ER. Pt is appropriate for outpt treatment and f/u. Differential Diagnosis Differential diagnosis: Likely upper respiratory infection, otitis media, sinusitis, viral infection, bronchitis and other (pneumonia) Imaging Data Radiologist's impression: Patient: Nora Nuñez : 1985 MR#: [id number] Age: 38 Acct:[id number] Loc: [facility] ADM Date: 04/07/24Attending Dr: Ordering Physician: Petra Lara APRN Date of Service: 04/07/24 Procedure(s): XR chest 2V Accession Number(s): [id number] cc: Petra Lara APRN; Lynsey Jewell MD~ EXAMINATION: XR chest 2V DATE: 04/07/2024 10:08 INDICATION: Cough. TECHNIQUE: Frontal and lateral views of the chest were obtained. COMPARISON: Chest 2 views 03/30/2022 FINDINGS: There is no pneumonia, pleural effusion, or pneumothorax. The heart size is normal. There are surgical clips in the abdomen. IMPRESSION: 1. No acute cardiopulmonary disease. Discharge Plan Discharge Clinical Impression: Bronchitis Patient Disposition: Home, Self-Care Condition: Stable Instructions: Antibiotic Form, Acute Bronchitis (ED) Additional Instructions: Acute bronchitis can be contagious because it is usually caused by infection with a virus or bacteria. It is usually for a few days but you can be contagious for up to one week. Avoid crowds until you do not have a fever and symptoms are improved Take medication as directed Recommendations: Continue Flonase spray and Zyrtec (or Claritin/Erin) over the counter Cough syrup may cause drowsiness; avoid driving or take it at night time. Tylenol 1000mg every 8 hours as needed for pain Symptomatic treatment includes: rest, fluids, and increase humidity of the air at home. Follow up with your primary care provider as needed in 1 week Go to the ER for worsening symptoms or concerns Prescriptions: New methylprednisolone [Medrol (Frankie)] 4 mg tablets,dose pack See Rx Instructions .ROUTE .COMPLEX Qty: 21 0RF Rx Instructions: orally per package directions No Action lorazepam 1 mg tablet 1 mg PO DAILY PRN (Reason: anxiety) Qty: 30 0RF trazodone 50 mg tablet 50 mg PO HS PRN (Reason: Insomnia) Qty: 90 3RF Follow-up/Referrals: Lynsey Jewell MD [Primary Care Provider] - Stand Alone Forms: Work/School Release IP Time of Disposition: 10:24
== END 2024-04-07 10:27 | disposition home or self-care (01) ==
PROVIDERS: Emergency Provider Nurse Practitioner Family; PCP Family Medicine
DX: J40 Bronchitis, not specified as acute or chronic (principal); F17.210 Nicotine dependence, cigarettes, uncomplicated; J45.909 Unspecified asthma, uncomplicated
CPT/HCPCS: 71046; 99213; G0463

== ENCOUNTER 2024-06-13 09:26 | Outpatient (CLI) | payer OTHER, SELFPAY ==
[2024-06-13 17:49] LABS: Basophils Absolute Auto 0.1 K/mm3 (0.0-0.1); Basophils Percent Auto 0.7 % (0.2-1.2); Eosinophils Absolute Auto 0.1 K/mm3 (0-0.3); Eosinophils Percent Auto 0.8 % (0-4.4); Hematocrit 42.8 % (37.0-47.0); Hemoglobin 13.4 g/dL (12.0-15.0); Immature Granulocyte Absolute 0.09 K/mm3 (0.00-0.031); Immature Granulocyte Percent A 0.7 % (0-0.5); Lymphocytes Absolute Auto 3.12 K/mm3 (0.9-3.2); Lymphocytes Percent Auto 23.2 % (18.3-44.2); Mean Corpuscular HGB Conc 31.3 g/dl (32-36); Mean Corpuscular Hemoglobin 27.3 pg (26-34); Mean Corpuscular Volume 87.3 fl (80-100); Monocytes Absolute Auto 0.8 K/mm3 (0.1-0.6); Monocytes Percent Auto 5.7 % (2.6-8.5); Neutrophils Absolute Auto 9.3 K/mm3 (1.3-6.7); Neutrophils Percent Auto 68.9 % (45.5-73.1); Platelet Count Result 353 k/mm3 (150-375); Red Cell Distribution Width 13.9 % (11.5-14.5); White Blood Count 13.4 K/mm3 (4.5-10.0)
[2024-06-13 18:17] LABS: Alanine Aminotransferase 13 U/L (6-35); Albumin Level 4.1 g/dL (3.5-5.1); Alkaline Phosphatase 65 U/L (38-126); Anion Gap 7 mmol/L (4-12); Aspartate Amino Transferase 23 U/L (14-36); Bilirubin,Total 0.5 mg/dL (0.2-1.3); Blood Urea Nitrogen 12 mg/dL (7-17); Calcium 9.1 mg/dL (8.4-10.2); Carbon Dioxide 29 mmol/L (22-30); Chloride 104 mmol/L (98-107); Cholesterol 152 mg/dL (0-200); Estimated Glomerular Filt Rate > 60; Glucose 70 mg/dL (65-110); HDL Direct 36 mg/dL; Potassium 4.5 mmol/L (3.4-5.0); Sodium 140 mmol/L (137-145); Triglycerides 97 mg/dL (<150)
[2024-06-13 18:19] LABS: LDL Cholesterol Direct 94 mg/dL
[2024-06-13 18:32] LABS: Thyroid Stimulating Hormone 0.655 uIU/mL (0.465-4.680)
[2024-06-13 20:15] LABS: Hemoglobin A1C 5.5 % (<5.7)
== END 2024-06-13 09:27 | disposition home or self-care (01) ==
LOC: ANHGOSHLAB 09:27
PROVIDERS: PCP Family Medicine; Visit Provider Student in an Organized Health Care Education/Training Program
DX: R00.2 Palpitations (principal); R00.0 Tachycardia, unspecified; E66.01 Morbid (severe) obesity due to excess calories; Z68.42 Body mass index [BMI] 45.0-49.9, adult
CPT/HCPCS: 36415; 80053; 80061; 83036; 84443; 85025

== ENCOUNTER 2024-06-20 08:04 | Emergency (ER) | payer OTHER, SELFPAY ==
[2024-06-20 08:09] VITALS: BP 141/92; PULSE 94; RESP 18; TEMP 36.6; O2SAT 100
--- NOTE | 2024-06-20 08:10 | ED_ITS ---
HPI - URI/Sore Throat General Chief Complaint: Upper Respiratory Infection Stated Complaint: Right Ear Pain Time Seen by Provider: 06/20/24 08:11 Source: patient, RN notes reviewed and old records reviewed Mode of arrival: ambulatory Limitations: no limitations History of Present Illness HPI Narrative: 38 year old female presents to [facility] care with complaints of sinus congestion post nasal drainage and sinus pressure that has been going on for one week with complaints of right ear pain since last night. Patient reports that she has been taking Sudafed, Mucinex, and Zyrtec for her symptoms. Patient reports history of sinus problems in the past. Patient reports no known fevers with occasional dry cough noted. MD elicited complaint: rhinorrhea, nasal congestion, sinus pain and other (ear pain) Pertinent past history: sinusitis Onset (ago): week(s) (1) Severity: moderate Able to tolerate fluids by mouth: Yes Treatments prior to arrival: other (Sudafed, Mucinex and Zyrtec) Related Data Allergies Allergy/AdvReac Type Severity Reaction Status Date / Time Penicillins Allergy Unknown Hives Verified 06/13/24 09:22 Review of Systems Review of Systems: CONSTITUTIONAL: Reports malaise, no chills, sweats, or fever. EYES: Denies visual changes, redness, or discharge. ENT: Reports rhinorrhea, congestion, sinus pain,right otalgia and no sore throat. CARDIOVASCULAR: Denies chest pain, palpitations, or edema. RESPIRATORY: Reports occasional dry cough.? Denies dyspnea. GASTROINTESTINAL: Denies abdominal pain, nausea, vomiting, diarrhea SKIN: Denies rash or itching. MUSCULOSKELETAL: Denies myalgia. NEUROLOGIC: Denies headache. All systems reviewed & are unremarkable except as noted in HPI and below PMFSH Past Medical History Medical History Sinusitis Bronchitis Asthma Left radial fracture Cellulitis of right breast Abnormal colonoscopy diverticulosis Nausea Diverticulitis Hx gestational diabetes Surgical History Surgical History History of H/O dilation and curettage History of cholecystectomy Family History Family History Father Family history of premature coronary heart disease, Onset Age: 56 Hypertension Family history of cardiovascular disease, Onset Age: 56 Mother Diabetes mellitus Family history of obesity Family history of osteoporosis Depression Hypertension Grandparent Diabetes mellitus Family history of osteoporosis Family history of mental disorder Depression Sibling Depression Hypertension Sibling Suicide Other Suicide Other Family history of suicide Social History Social History Smoking packs per day: 0.5 Smoking cigarettes per day: 10.0 Smoking status: Current every day smoker Tobacco type: cigarettes and e-cigarettes/vaping Additional smoking assessment comments: no longer smoking cigarettes is vaping Alcohol intake: current Alcohol use details: rarely Substance use: never Substance use type: does not use Do You Feel Safe in your Home?: Yes Lack of Transportation: No Lack of Food: Never True Current Housing: I Have Housing Concerned About Future Housing: No Difficulty Paying Gas/Electric Bills: No Difficulty Paying for Meds: No Currently Unemployed: No Education: Trade/Vocational Certificate Difficulty w/ Childcare or Family Care: No Living arrangements: with family Gender identity (if verbalized by the patient): Female Comments At time of signature, agree with nursing past medical, surgical, social and family history. There is no relevant family history pertinent to the presenting complaint Exam Narrative: GENERAL: Well-appearing, well-nourished, and in no acute distress. HEAD: Normocephalic EYES: PERRLA, conjunctivae clear ENT: Nares clear, turbinates edematous and erythematous, clear discharge with sinus pressure. Mucous membranes moist.Right TM red, Left TM pearly guadalupe with dull light reflex bilaterally; no tragal tenderness. Oropharynx erythematous without lesions. Tonsils not enlarged and without exudate, no drooling, no hoarseness, no trismus, uvula midline.post nasal drainage. NECK: Supple. No lymphadenopathy CHEST: Clear to auscultation, breath sounds equal. No wheezing, rhonchi, rales, or stridor. No respiratory distress, speaks in full sentences.occasional dry cough, SAO2 100% on room air HEART: Regular rate and rhythm. No murmur heard. SKIN: Warm, dry, no rash. NEURO: Alert and oriented x3. PSYCH: Normal mood and affect Course Course Emergency Course: Patient is aware of diagnosis, understands and agrees to treatment plan.? Anticipatory guidance given.? Patient agrees to follow-up as directed and is aware of reasons to seek care at the emergency department. Portions of this record may have been created with voice recognition software Level of Care: Express Care Visit Vital Signs Vital signs: Reviewed MDM - URI/Sore Throat MDM Narrative Medical decision making narrative: Differential diagnosis considered: Aguilar virus, strep pharyngitis, allergic rhinitis, upper respiratory tract infection, sinusitis, rhinosinusitis, nasopharyngitis. viral pharyngitis, otitis media, otitis externa, pneumonia, bronchitis, viral cough syndrome, viral syndrome, and influenza.? Exam findings show no acute concerns or changes; patient is non-toxic appearing and is in no distress.? Patient is appropriate for outpatient treatment and follow-up. Differential Diagnosis Differential diagnosis: Likely upper respiratory infection, otitis media, sinusitis, viral infection, bronchitis and other (post nasal drainage) Medical Records Attestation: I reviewed the patient's medical records. Lab Data Attestation: I reviewed the patient's lab results. Critical Care Time Critical Care Time Critical Care Time: No Discharge Plan Discharge Clinical Impression: Bacterial sinusitis Otitis media, right Qualifiers: Otitis media type: serous Chronicity: acute Recurrence: non-recurrent Qualified Code(s): H65.01 - Acute serous otitis media, right ear Patient Disposition: Home, Self-Care Condition: Stable Instructions: Sinusitis (ED), Ear Infection (ED) Additional Instructions: Increase fluids especially juices and water Prra-jwa-iwqydqs cough and cold medicine of your choice for your symptoms Zyrtec Claritin or Erin daily may include Coricidin brand decongestant May continue you Mucinex if you desire make sure you are drinking plenty of fluids with this medication heat to the face 20-30 minutes 4-6 times a day for pain Salt water gargles, throat lozenges or throat sprays as desired Antibiotic as directed--finished the medication If your symptoms persist, change or worsen significantly before you can contact your personal physician then please, without delay, go to the emergency department for further evaluation. Follow-up with PCP in 7-10 days or sooner if needed Follow up with PCP soon in regards to your blood pressure which is elevated above threshold for referral. Blood pressure above 120/80 may indicate pre- hypertension. 141/92 Patient Language: Turkmen Prescriptions: New azithromycin 500 mg tablet 500 mg PO DAILY 5 Days Qty: 5 0RF No Action trazodone 50 mg tablet 50 mg PO HS PRN (Reason: Insomnia) Qty: 90 3RF lorazepam 1 mg tablet 1 mg PO DAILY PRN (Reason: anxiety) Qty: 30 0RF Follow-up/Referrals: Lynsey Jewell MD [Primary Care Provider] - Time of Disposition: 08:27 Quality [place] Coma Scale Eyes: Open Verbal: Oriented and Alert Motor: Follows Commands Louann Coma Total Score: 15
== END 2024-06-20 08:30 | disposition home or self-care (01) ==
PROVIDERS: Emergency Provider Registered Nurse; PCP Family Medicine
DX: J32.9 Chronic sinusitis, unspecified (principal); B96.89 Other specified bacterial agents as the cause of diseases classified elsewhere; H65.01 Acute serous otitis media, right ear; J45.909 Unspecified asthma, uncomplicated; F17.210 Nicotine dependence, cigarettes, uncomplicated; F17.290 Nicotine dependence, other tobacco product, uncomplicated
CPT/HCPCS: 99213; G0463

== ENCOUNTER 2024-07-24 07:19 | Outpatient (CLI) | payer OTHER, SELFPAY | END 2024-07-24 07:20 | PROVIDERS: PCP Family Medicine; Visit Provider Student in an Organized Health Care Education/Training Program | DX: R00.0 Tachycardia, unspecified (principal); R00.2 Palpitations; Z82.49 Family history of ischemic heart disease and other diseases of the circulatory system; R07.9 Chest pain, unspecified | CPT/HCPCS: 78452; A9502 ==

== ENCOUNTER 2024-10-04 08:07 | Emergency (ER) | payer OTHER, SELFPAY ==
--- OUTSIDE RECORDS SUMMARY | 2024-10-04 08:09 | XMS_ITS | Clinical Summary ---
Author Organization [facility] Address [address] [place] [id number] Care Team Providers Care Chief Enterprise Architect Name Role Phone None, Provider MD Primary Care Provider Unavaila ble Allergies Active Allergy Reactions Criticality Noted Date Comments Penicillins Unknown 09/18/2012 Medications sertraline 50 MG tablet Take 50 mg by mouth daily. 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 Gender Identity Not on file Sexual Orientation Not on file Last Filed Vital Signs Vital Sign Reading Time Taken Comments Blood Pressure 131/80 01/21/2019 9:48 AM CDT Pulse 72 01/21/2019 9:48 AM CDT Temperature 36.1 C (97 F) 01/21/2019 9:48 AM CDT Respiratory Rate 18 01/21/2019 9:48 AM CDT Oxygen Saturation 97% 01/21/2019 9:48 AM CDT Inhaled Oxygen Concentration - - Weight 113.4 kg (250 lb) 01/15/2019 2:08 PM CDT Height 175.3 cm (5' 9 ) 01/15/2019 2:08 PM CDT Body Mass Index 36.92 01/15/2019 2:08 PM CDT Plan of Treatment Health Maintenance Due Date Last Done Comments Cervical Cancer Screening Pa p Smear (Age 30 to 64) Every 3 Years 1984 Annual Physical 12/01/1987 Hepatitis C 2002 DTaP, Tdap and Td Vaccines ( 1 - Tdap) 12/01/2003 Hepatitis B Vaccines (1 of 3 - 19+ 3-dose series) 12/01/2003 Pneumococcal Vaccine: Pediat rics (0 to 5 Years) and At-Risk Patients (6 to 49 Years) (1 of 2 - PCV) 12/01/2003 Cervical Cancer Screening [place] with HPV Testing (Age 30 to 64) Every 5 Years 2014 Cervical Cancer Screening with HPV 2014 COVID-19 Vaccine (1 - 2023-2 5 season) 2024 HPV Vaccines Aged Out No longer eligi ble based on patient's age to complete this topic Meningococcal B Vaccine Aged Out No l onger eligible based on patient's age to complete this topic Meningococcal Vaccine Aged Out No mary kay rosaura eligible based on patient's age to complete this topic RSV Immunizations Under 20 Months Aged Out No longer eligible based on patient's age to complete this topic Insurance Care Teams Chief Enterprise Architect Relationship Specialty Start Date End Date None, Provider, PCP - General 01/08/19
--- OUTSIDE RECORDS SUMMARY | 2024-10-04 08:09 | XMS_ITS | Clinical Summary ---
Author Organization [facility] Address [address] [place] [address] Phone Care Team Providers Care Flower Pot Press Operator Name Role Phone Lynsey Jewell MD Primary Care Provider [phone] Allergies Active Allergy Reactions Criticality Noted Date Comments Penicillins Hives 10/17/2018 Medications polyethylene glycol (GLYCOLAX, MIRALAX) Pack Take 1 Packet by mouth daily as needed for Constipation. Dissolve in 4-8 oz of liquid. 90 Packet 9 Active sertraline (ZOLOFT) 100 MG Tablet Take 1 Tab by mouth daily. 3 9 Active HYDROcodone-yolis taminophen (NORCO) 5-325 MG Tablet Take 1-2 Tabs by mouth every 6 hours as needed for Moderate or more severe pain. 20 Tab 9 Active Additional Information Patient not taking.Reported on 07/20/2020 albuterol 108 (90 Base) MCG/ACT Aerosol Solution take 2 Puffs by inhalation every 6 hours as needed for Wheezing. 1 Inhaler 0 Active Additional Information Patient not taking.Reported on 07/20/2020 montelukast (Singulair) 10 MG Tablet Take 10 mg by mouth every evening. Active ondansetron (ZOFRAN-ODT) 4 MG TABLET DISPERSIBLE Take 1 Tablet by mouth every 6 hours as needed for Nausea - 1st line. 10 Tablet 1 Active senna (SENOKOT) 8.6 MG Tablet Take 1 Tablet by mouth 2 times daily as needed for Constipation - 3rd line. 30 Tablet 1 Active HYDROcodone-yolis taminophen (NORCO) 5-325 MG TabletIndicatio ns:Low back pain Take 1 Tablet by mouth every 8 hours as needed for Moderate or more severe pain. 12 Tablet 2 Active sertraline (ZOLOFT) 50 MG Tablet Take 50 mg by mouth daily. 3 Active LORazepam (ATIVAN) 1 MG Tablet Take 1 mg by mouth 3 times daily as needed. Active escitalopram (LEXAPRO) 10 MG Tablet Take 10 mg by mouth daily. Active PROPRANOLOL HCL PO Take 10 mg by mouth. Up to 3x a day Active levoFLOXacin (Levaquin) 750 MG Tablet Take 1 Tablet by mouth daily for 10 days. 10 Tablet 5 025 metroNIDAZOLE (Flagyl) 500 MG Tablet Take 1 Tablet by mouth 3 times daily for 10 days. 30 Tablet 5 025 Active Problems Problem Noted Date Diagnosed Date PTSD (post-traumatic stress disorder) 09/27/2022 Grief 09/27/2022 Diverticulitis of sigmoid colon 07/20/2020 Morbid obesity with BMI of 40.0-44.9, adult 06/29 Asthma 07/20/2020 Depression 07/20/2020 BMI 35.0-35.9,adult 10/17/2018 Constipation 10/17/2018 Elevated blood pressure reading 10/17/2018 Encounters Date Type Department Care Team Description 09/26/2024 10:15 AM CDT Outpatient Clinic Visit [facility] [address] [place] [address] Astrid Prakash, HAT FORMING MACHINE FEEDER Grief (Primary Dx); PTSD (post-traumatic stress disorder) Discharge Disposition: Discharged to home or Selfcare 09/23/2024 10:06 PM CDT - 09/23/2024 11:23 PM CDT Emergency [facility] Emergency [address] [place] [address] Thomas Botello MD Diverticulitis Discharge Disposition: Discharged to home or Selfcare 09/23/2024 Travel 09/12/2024 10:45 AM CDT Outpatient Clinic Visit [facility] [address] [place] [address] Cally Arriola, HAT FORMING MACHINE FEEDER Astrid Prakash, STEPHON PTSD (post-traumatic stress disorder) (Primary Dx); Grief Discharge Disposition: Discharged to home or Selfcare 09/12/2024 Travel from Last 3 Months Family History Medical History Relation Name Comments Depression Brother Tad 39 Drug Abuse Brother Tad 39 Alcohol Abuse Father Alex Heart Attack Father [place] fatal Hypertension Father [place] Kidney Disease Half-Brother Erwin 42 Colon Cancer Maternal Aunt Diabetes Maternal Grandmother Depression Mother Ivonne Diabetes Mother Ivonne Hypertension Mother Ivonne Depression Sister Sera 40 Relation Name Status Comments Brother Timo 39 Father [place] Half-Brother Erwin 42 Alive Maternal Aunt Maternal Grandmother Mother Ivonne Alive Sister Sera 40 Alive Social History Tobacco Use Types Packs/Day Years Used Date Smoking Tobacco: Some Days Cigarettes 0.5 10 Smokeless Tobacco: Never Tobacco Cessation:Ready to Q uit: Not Asked; Counseling Given: Not Answered Alcohol Use Standard Drinks/Week Comments Not Currently 0 (1 standard drink = 0.6 oz pur e alcohol) Rarely PHQ-2 Answer Date Recorded Total Score - Questions 1-9 13 08/26 Sexually Active Control Partners Comments Yes Comments No Sex and Gender Information Value Date Recorded Sex Assigned at Female 01/08/2023 2:01 PM CDT Legal Sex Female 9:01 PM CDT Gender Identity Female 01/08/2023 2:01 PM CDT Sexual Orientation Not on file 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 Industry Job Start Date Job End Date 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 Not on file Not on file N ot on file Last Filed Vital Signs Vital Sign Reading Time Taken Comments Blood Pressure 142/58 09/23/2024 11:15 PM CDT Pulse 75 09/23/2024 11:15 PM CDT Temperature 36.3 C (97.4 F) 09/23/2024 10:13 PM CDT Respiratory Rate 18 09/23/2024 10:13 PM CDT Oxygen Saturation 96% 09/23/2024 11:15 PM CDT Inhaled Oxygen Concentration - - Weight 113.4 kg (250 lb) 09/23/2024 10:13 PM CDT Height 175.3 cm (5' 9 ) 09/23/2024 10:13 PM CDT Body Mass Index 36.92 09/23/2024 10:13 PM CDT Plan of Treatment Upcoming Encounters Date Type Department Care Team (Latest Contact Info) Description 10/10/2024 8:30 AM CDT [facility] [address] [place] [address] Astrid Prakash, HAT FORMING MACHINE FEEDER [address] [place] [address] Discharge Disposition: Discharged to home or Selfcare 10/24/2024 8:30 AM CDT [facility] [address] [place] [address] Astrid Prakash LCSW [address] [place] [address] Discharge Disposition: Discharged to home or Selfcare Health Maintenance Due Date Last Done Comments Hepatitis C Virus (HCV) Screening 1984 Pneumococcal Immunization Combined (1 of 2 - PCV) 12/01/2003 Pap Smear 2005 Cervical Cancer Screening (CCS) 2014 HPV/Cotest 2014 Hepatitis B Immunization (3 of 3 - 19+ 3-dose series) 05/24/2017 01/24/2017, 11/22/2016 SARS-COV-2 Immunization ( season) 2024 06/17/2021, 07/27/2020, 06/29/2020 Influenza Immunization (Seas on Ended) 2025 03/21/2018, 02/14/2017 Respiratory Syncytial Virus (RSV) Immunization (Adult) (1 - 1-dose 75+ series) 12/01/2059 DTaP/Tdap/Td Immunization Discontinued 2014, 03/18/2012 TdaP Immunization Completed 08/17/2014, 03/18/2012 Human Papillomavirus (HPV) Immunization Aged Out No longer eligible based on patient's age to complete this topic Meningococcal Immunization (ACWY) Aged Out No longer eligible based on patient's age to complete this topic Rotavirus Immunization Aged Out No lo nger eligible based on patient's age to complete this topic Goals Goal Patient Goal Type Associated Problems Recent Progress Patient-Stated? Author I don't want to always feel this way. [panic attacks, memories, trauma related] Behavioral Health Improving(06/2024 1:52 PM CDT) Yes Astrid Prakash LCSW Note: Goal/Objective: Decrease the emotional distress related to the of her brother. Anticipated Time Frame for Goal Completion: 6 months Goal Reviewed with: patient Readiness to change: Ready to change Department associated with goal: [facility] Steps to achieve goal: will share personal trauma story in counseling/psychotherapy sessions. will learn/identify how trauma has impacted personal life, physical health and behavioral health. will identify and practice, at least two, skills/activities/routines, to gain relief from the impact of trauma. Will attend individual and/or group therapy at least 1x/month at least 6 sessions I want to be able to feel happiness instead of indifferent. Behavioral Health No change(2024 1:52 PM CDT) Yes Astrid Prakash LCSW Note: Goal/Objective: Improve the ability to copee with the sadness and grief related to her brother and mothers' suicides.. Anticipated Time Frame for Goal Completion: 6 months Goal Reviewed with: patient Readiness to change: Ready to change Department associated with goal: [facility] Steps to achieve goal: 1. will attend at least 6 counseling sessions either individual and/or group 1x/mo, engaging in each session by verbalizing and processing thoughts and feelings related to grief and loss. 2. will report reduced feelings of guilt and resentment. 3. will identify and implement at least two outlets for grief and or coping skills to aid in managing problematic responses to grief. Insurance MEDICAID [place] Advance Directives * Full Code (Latest Code Status on File) Date Activated Date Inactivated Comments 07/20/2020 9:50 PM 07/21/2020 1:51 PM CPR-Full Jose atment: FULL ARREST: Attempt Resuscitation/CPR wit intubation and mechanical ventilation. PRE-ARREST: Use entire range of life support measures to stabilize the patient. * Full Code Date Activated Date Inactivated Comments 10/18/2018 12:26 AM 10/19/2018 3:00 PM CPR-Full Tr eatment: FULL ARREST: Attempt Resuscitation/CPR wit intubation and mechanical ventilation. PRE-ARREST: Use entire range of life support measures to stabilize the patient. Care Teams Flower Pot Press Operator Relationship Specialty Start Date End Date Lynsey Jewell MD PCP - General Family Medicine 07/15/19
--- OUTSIDE RECORDS SUMMARY | 2024-10-04 08:09 | XMS_ITS | Encounter Summary ---
Author Organization [facility] Address [address] [place] [address] Care Team Providers Care Neurological Surgeon Name Role Phone None, Provider Primary Care Provider Unavaila ble Encounter Details Date Type Department Care Team (Late st Contact Info) Description 11/02/2018 Abstract SFL CONVERSION [address] [place] [address] , Generic Conversion, Social History Tobacco Use Types Packs/Day Years Used Date Smoking Tobacco: Never Assessed Comments Unknown Sex and Gender Information Value Date Recorded Sex Assigned at Not on file Legal Sex Female 9:40 PM DRAW TENDER Gender Identity Not on file Sexual Orientation Not on file documented as of this encounter Plan of Treatment Not on file documented as of this encounter Visit Diagnoses Not on filedocumented in this encounter Care Teams Neurological Surgeon Relationship Specialty Start Date End Date None, Provider, PCP - General 01/08/19 documented as of this encounter
--- OUTSIDE RECORDS SUMMARY | 2024-10-04 08:10 | XMS_ITS | Data Portability ---
Author Organization [facility] [place] Address [address] [place] [address] Care Team Providers Care Labor Economist Name Role Phone NELSY GROVER Primary Care Provider Assessment Encounter Date Assessment Date Assessment LastModified by Organization Details LastModified Time 10/14/2019 10/14/2019 Annual gynecological exam performed. Patient will come back in a year unless there are new symptoms. [email or web address] Not available 10/14/2019 09:45:04 11/19/2020 11/19/2020 Annual gynecological exam performed. Patient will come back in a year unless there are new symptoms. Suggest Calcium with Vitamin D if not eating in diet. Patient advised to get annual flu shot. Recommend yearly physicals and preform monthly breast exams. Genetic testing is available for patients with family history of cancer. Engage in safe sexual practices, use condoms. Encouraged to have daily exercise. Avoid tobacco and illicit drugs, moderation of alcohol. If BMI greater than 25 dietary consult advised. If you have any questions please call or email. std testing ordered Not available 11/19/2020 10:28:47 01/20/2022 01/20/2022 Annual gynecological exam performed. Patient will come back in a year unless there are new symptoms. Suggest Calcium with Vitamin D if not eating in diet. Patient advised to get annual flu shot. Recommend yearly physicals and perform monthly breast exams. Genetic testing is available for patients with family history of cancer. Engage in safe sexual practices, use condoms. Encouraged to have daily exercise. Avoid tobacco and illicit drugs, moderation of alcohol. If BMI greater than 25 dietary consult advised. If you have any questions please call or email. plan pap q 2-3 years, mammogram at 39. ok to replace mirena early for periods/cramping [email or web address] Not available 01/20/2022 10:35:11 08/24/2023 08/24/2023 Annual gynecological exam performed. Patient will come back in a year unless there are new symptoms. [email or web address] Not available 08/22/2023 10:24:30 Plan of Treatment Reminders Order Date Submit Date Provider Last Modified By Organization Details Last Modified Time Details Appointments None recorded. Lab test, urine 2023 024 [email or web address] [place], [facility] [address], [address], [place], [address], 11:45:28 Referral None recorded. Procedures None recorded. Surgeries None recorded. Imaging None recorded. Medication Orders Mirena 21 mcg/24 hr (up to 8 years) 52 mg intrauterin e device 2023 024 [email or web address] Not available 11:50:22 Patient TargetsNo targets recorded. Patient Instructions Encounter Date Encounter Id Patient Instructions Last Modified By Organization Details Last Modified Time 10/14/2019 [id number] [email or web address] Not available 10:24:25 Reason for Referral None Reported. Results Created Date Observation Date Name Description Value Unit Range Abnormal Flag Note LastModifiedBy Organization Detail LastModifiedTime 10/14/19 20 10/15/2019 pap, LB Pap test thin prep Negati ve for Intrae pithel ial Lesion or Malign airam normal ACCES ROXY #: [id number] Sour e: Cervi debi/E ndoce rvica l LMP: 09/25 Date Taken : 10/13 Speci men Type: ThinP rep Vial Date Repor violet: 2019 Clini debi Data: Cytot ech: Verenice Greene y, CT( CP) Date Repor violet: 2019 Speci men Adequ acy: Satis facto ry for evalu ation Endoc ervic al/tr ansfo rmati on zone compo nent prese nt Gener al Categ oriza tion: NEGAT JOSE FOR INTRA EPITH ELIAL LESIO N OR MALIG EDILIA The follo wing tests have been order ed as reque sted and a separ ate repor t will be issue d: Chlam ydia, Gonor rhoea e, and Trich omona s This speci men has been mariah zed by the ThinP rep Imagi ng Malcolm choi, an inter activ e compu ter malcolm choi which aicha ts the lab in the scree justus of ThinP rep Pap Test slide sJulien Moodyo imagi ng, the slide was revie wed by a Cytot echno logis t and/o r Patho logis t. D N A A S S A Y S R E P O R T TEST NAME RESUL TS ----- ---- ----- -- HPV High Risk Adelina dukes (TMA) ThinP rep Vial The human papil lomav irus (HPV) High Risk Adelina dukes is an FDA-a pprov ed in-vi tro ampli fied nucle ic acid test for the quali tativ e detec tion of E6/E7 viral mRNA. Resul ts daylin d be corre lated with patie nt prese ntati on, histo ry, cervi debi cytol ogy and other clini debi and labor atory findi ngs. See https ://Prediculous/s ites/ defau lt/fi les/2 018-0 3/AW- 77230 _002_ 01.pd f for shavonne dukes. Test perfo rmed by [facility], d/b/a [facility], [address] , [place] [address] , Duke Mike ra, DO, Labor atory [facility]. HPV High Risk *HPV NOT DETEC VIOLET (TYPE S 16, 18, 31, 33, 35, 39, 45, 51, 52, 56, 58, 59, 66, 68) *HPV: The human papil lomav irus (HPV) High Risk Adelina dukes is an FDA-a pprov ed in-vi tro ampli fied nucle ic acid test for the quali tativ e detec tion of E6/E7 viral mRNA. Resul ts daylin d be corre lated with patie nt prese ntati on, histo ry, cervi debi cytol ogy and other clini debi and labor atory findi ngs. See https ://ww w.TouchFrame. com/s ites/ defanastacia lt/fi les/2 018-0 3AW- 96890 _002_ 01.pd f for shavonne begumr rossy n. Test perfo rmed by [facility] [employer], [employer], d/b/a [facility], [address], [place] [address] , Duke Mike ra, DO, Labor atory Direc tor. End of t Techn ical servi vasiliy provi ded by [facility] [employer], [employer], d/b/a [facility], [address] [place] [address] Hunter Esteban MD, [facility]. Case revie wed and diagn osis rende red at [facility] [employer] Patho logis [employer], [employer], d/b/a Path [facility], [address] [place] [address] Hunter Esteban MD, [facility]. CONFI DENTI AL Not Available [facility] ([facility]) [address], [place], [address], 10/15/2019 17:49:02 10/14/19 20 10/15/2019 CT + NG DNA, PCR, unspe cifie d speci men trichomonas vaginalis, aptima (panther) NOT DETECT ED normal DNA testi ng perfo rmed by Trans cript ion Media violet Ampli ficat ion (TMA) These resul ts shoul d be inter prete d in light of all clini debi and labor atory findi ngs. This assay is highl y accur ate, but rare false posit jose and negat jose resul ts may occur . Posit jose resul ts in low preva lence popul ation s may requi re re-ev aluat ion. A negat jose resul t does not precl ude a possi ble infec tion due to a speci men inade quacy or sampl ing error . Test perfo rmed by [facility], [employer], d/b/a [facility], [address], [place] [address] , Duke Mike ra, , Labor atory Dire tor. Not Available [facility] ([facility]) [address], [place], [address], 10/15/2019 17:49:02 10/14/19 20 10/15/2019 CT + NG DNA, PCR, unspe cifie d speci men neisseria gonorrhoeae, aptima NOT DETECT ED normal DNA testi ng perfo rmed by Trans cript ion Media violet Ampli ficat ion (TMA) These resul ts shoul d be inter prete d in light of all clini debi and labor atory findi ngs. This assay is highl y accur ate, but rare false posit jose and negat jsoe resul ts may occur . Posit jose resul ts in low preva lence popul ation s may requi re re-ev aluat ion. A negat jose resul t does not precl ude a possi ble infec tion due to a speci men inade quacy or sampl ing error . Test perfo rmed by [facility], [employer], d/b/a [facility], [address], [place] [address] , Duke Mike ra, , Labor atory Direc tor. Not Available [facility] ([facility]) [address], [place], [address], 10/15/2019 17:49:02 10/14/19 20 10/15/2019 CT + NG DNA, PCR, unspe cifie d speci men chlamydia trachomatis, aptima NOT DETECT ED normal DNA testi ng perfo rmed by Trans cript ion Media violet Ampli ficat ion (TMA) These resul ts shoul d be inter prete d in light of all clini debi and labor atory findi ngs. This assay is highl y accur ate, but rare false posit jose and negat jose resul ts may occur . Posit jose resul ts in low preva lence popul ation s may requi re re-ev aluat ion. A negat jose resul t does not precl ude a possi ble infec tion due to a speci men inade quacy or sampl ing error . Test perfo rmed by [facility] [employer], [employer], d/b/a [facility], [address], [place] [address] , Duke Mike ra, DO, Labor atory Direc tor. Not Available [facility] [place] [facility] ([facility]) [facility], [place], [address], 10/15/2019 17:49:02 10/14/19 20 10/15/2019 HPV DNA, high- risk HPV high risk NOT DETECT ED normal The human papil lomav irus (HPV) High Risk Adelina dukes is an FDA-a pprov ed in-vi tro ampli fied nucle ic acid test for the quali tativ e detec tion of E6/E7 viral mRNA. Resul ts shoul d be corre lated with patie nt prese ntati on, histo ry, cervi debi cytol ogy and other clini debi and labor atory findi ngs. See https ://TouchFrame wAtlanteTrek/s ites/ defau lt/fi les/2 018-0 3/AW- 57410 _002_ 01.pd f for fursophy er infor matio n. Test perfo rmed by [facility] [employer], d/b/a [facility], [address], [place] [address] , Duke Mike ra, DO, Labor atory Direc tor. Not Available [facility] [place] [facility] ([facility]) [address], [place], [address], 10/15/2019 17:49:02 11/20/19 21 11/19/2020 HEPAT ITIS C ANTIB BRIGIDO SCREE N, REFLE X TO CONFI RMATI ON hepatitis C antibody Non-re active non-re active This assay was perfo rmed using [employer] ratio n reage nts and test kits. Value s obtai joanie with other assay metho ds or kits canno t be used inter [facility] . Not Available [facility] (Lab) [address], [place], [address], 11/22/2020 21:29:04 11/20/19 21 11/19/2020 HEPAT ITIS B SURFA CE ANTIG EN hepatitis B surface antigen Non-re active non-re active This assay was perfo rmed using [employer] reage nts and test kits. Value s obtai joanie with other assay metho ds or kits canno t be used inter [facility] . Not Available [facility] (Lab) [address], [place], [address], 11/22/2020 21:29:05 11/20/19 21 11/19/2020 RPR SCREE N/REF RENETTA TITER /FTA RPR screen Nonrea ctive nonrea ctive Not Available [facility] (Lab) [address], [place], [address], 11/22/2020 21:29:05 11/20/19 21 11/19/2020 HIV 1/2 ANTIG EN/AN TIBOD Y, REFLE X CONFI RMATI ON HIV Ag-Ab total quant 0.05 idx <1.00 Not Available [facility] (Lab) [address] [place], [address], 11/22/2020 21:29:06 11/20/19 21 11/19/2020 HIV 1/2 ANTIG EN/AN TIBOD Y, REFLE X CONFI RMATI ON HIV Ag-Ab total Non-re active non-re active Not Available [facility] (Lab) [address] [place], [address], 11/22/2020 21:29:06 11/20/19 21 11/19/2020 HIV 1/2 ANTIG EN/AN TIBOD Y, REFLE X CONFI RMATI ON HIV-1 antibody quant 0.05 idx <1.00 Not Available [facility] (Lab) [address], [place], [address], 11/22/2020 21:29:06 11/20/19 21 11/19/2020 HIV 1/2 ANTIG EN/AN TIBOD Y, REFLE X CONFI RMATI ON HIV-1 antibody Non-re active non-re active Not Available [facility] (Lab) [address], [place], [address], 11/22/2020 21:29:06 11/20/19 21 11/19/2020 HIV 1/2 ANTIG EN/AN TIBOD Y, REFLE X CONFI RMATI ON HIV-1 antigen (P24) quant 0.05 idx <1.00 Not Available [facility] (Lab) [address], [place], [address], 11/22/2020 21:29:06 11/20/19 21 11/19/2020 HIV 1/2 ANTIG EN/AN TIBOD Y, REFLE X CONFI RMATI ON HIV-1 antigen (P24) Non-re active non-re active Not Available [facility] (Lab) [address] [place], [address], 11/22/2020 21:29:06 11/20/19 21 11/19/2020 HIV 1/2 ANTIG EN/AN TIBOD Y, REFLE X CONFI RMATI ON HIV-2 antibody quant 0.04 idx <1.00 Not Available [facility] (Lab) [address], [place], [address], 11/22/2020 21:29:06 11/20/19 21 11/19/2020 HIV 1/2 ANTIG EN/AN TIBOD Y, REFLE X CONFI RMATI ON HIV-2 antibody Non-re active non-re active HIV testi ng is perfo rmed using Multi plex- Bead Immun oassa y techn ology . The final overa ll HIV Ag-Ab resul t is deter mined based on the final resul t for each indiv idual mariah te. If any of the mariah kelly has 2 or more repli cates that are REACT JOSE, the final overa ll HIV Ag-Ab resul t is also React jose. A Non-R eacti ve test resul t at any point in the inves tigat ion of indiv idual subje cts does not precl ude the possi bilit y of expos ure to or infec tion with HIV-1 and/o r HIV-2 . Non-R eacti ve resul ts can occur if the quant ity of marke r prese nt in the sampl e is below the detec tion limit s of the assay . React jose speci mens must be inves tigat ed by addit ional , more speci fic suppl ement al tests . Speci men confi rmati on will be perfo rmed by the [employer] us HIV 1/2 Suppl ement al Assay . The perfo rmanc e of this assay has not been estab lishe d for neona kelly and the assay shoul d not be used in indiv idual s young er than 2 years of age. Not Available [facility] ([facility]) [address], [place], [address], 11/22/2020 21:29:06 11/20/19 21 11/19/2020 HEPAT ITIS B CORE, IGM hepatitis B core IgM antibody Negati ve negati ve Not Available [facility] (Lab) [address], [place], [address], 11/22/2020 21:29:06 11/20/19 21 11/19/2020 IMAGE GUIDE D PAP AND HPV REGAR DLESS image guided Pap, HPV regardless of Pap result SEE RESULT S BELOW abnormal CASE REPOR T: Cytol ogy Gynec ologi debi Repor t Case: [id number] Autho rochelle moffett Provi beverley: Merna Joel, YANNICK Colle cted: 11/19 1118 Order ing Locat ion: [place] Patho logjoshua Recei tanner: 11/22 0629 First Scree n: Marni perera, Rupal ed, CT Patho logis t: Marline Ludwig MD Speci men: Adelina jerome Pap - Image d, Cervi x STATE MENT OF ADEQU ACY: Satis facto ry for evalu ation Trans forma tion zone compo nent prese nt FINAL DIAGN OSIS: Epith elial Cell Abnor malit y, Squam ous Cell: Atypi debi squam ous cells of undet ermin ed eloisai opal grande. Elect cinthia burgos d by Marline Ludwig MD on 2020 at 1:43 PM ----- ----- ----- ----- ----- ----- ----- ----- ----- ----- ----- ----- ----- ----- ----- ----- ----- ---- HPV RESUL TS: HPV mRNA E6/E7 : No HPV mRNA Detec violet NOTE: This high risk HPV mRNA assay detec ts fourt een high- risk HPV types (16, 18, 31, 33, 35, 39, 45, 51, 52, 56, 58, 59, 66, 68) witho ut diffe renti ation . CHART ABLE COMME NT: Note: This speci men was revie wed by a Cytot echno logis t and/o r Patho logis t (as indic ated in this repor t) after evalu ation using the Thinp rep Imagi ng Syste m. CLINI DEBI INFOR MATIO N: Menst rual Statu s: LMP (if appli cable ): 018 Clini debi Histo ry/Pr eviou s Pap: Type of Neopl magda (if appli cable ): Other Histo ry: Hormo tex (if appli cable ): ELOISA MOLINA FOLLO W-UP: Follo w up as warra nted, based on curre nt guide lines and indiv idual patie nt consi derat ions. Not Available [facility] (Lab) [address], [place], [address], 11/23/2020 14:46:52 11/20/19 21 11/19/2020 TRICH OMONA S VAGIN NELLY (RRNA ) trichomonas vaginalis ribosomal RNA (rrna) Negati ve negati ve Not Available [facility] (Lab) [address], [place], [address], 11/23/2020 14:46:52 11/20/19 21 11/19/2020 CT/GC (AVERY) , THINP REP VIAL chlamydia trachomatis, PCR Negati ve negati ve Not Available [facility] (Lab) [address], [place], [address], 11/23/2020 14:46:53 11/20/19 21 11/19/2020 CT/GC (AVERY) , THINP REP VIAL neisseria gonorrhoeae, PCR Negati ve negati ve Not Available [facility] (Lab) [address], [place], [address], 11/23/2020 14:46:53 07/20/19 24 07/20/2023 pregn airam test, urine HCG negati ve Not Available [place] [address], [place], [address], 07/20/2023 11:45:05 08/24/19 24 08/24/2023 IMAGE GUIDE D PAP AND HPV REGAR DLESS image guided Pap, HPV regardless of Pap result SEE RESULT S BELOW CASE REPOR T: Cytol ogy Gynec ologi debi Repor t Case: [id number] Autho rochelle g Provi beverley: Anuradha Baker, YANNICK Colle cted: 08/23 1036 Order ing Locat ion: [place] Patho logy Recei tanner: 08/26 0702 First Scree n: Marni ni, Pravinam ed, CT Rescr een: Marissa Edwards Speci men: Scree justus Pap - Image d, Cervi x STATE MENT OF ADEQU ACY: Satis facto ry for evalu ation Trans forma tion zone compo nent absen t The absen ce of an endoc ervic al compo nent was confi rmed by an addit parth malhotra. FINAL DIAGN OSIS: Negat jose for Intra epith elial Lesio n or Pete brush (NIL) . Elect cinthia penaloza loretta d by Marissa Edwards on 024 at 2:18 PM ----- ----- ----- ----- ----- ----- ----- ----- ----- ----- ----- ----- ----- ----- ----- ----- ----- ---- HPV RESUL TS: HPV mRNA E6/E7 : No HPV mRNA Detec violet NOTE: This high risk HPV mRNA assay detec ts fourt een high- risk HPV types (16, 18, 31, 33, 35, 39, 45, 51, 52, 56, 58, 59, 66, 68) witho ut diffe renti ation . COMME NT: This speci men was revie wed by a Cytot echno logis t and/o r Patho logis t (as indic ated in this repor t) after evalu ation using the Thinp rep Imagi ng Syste m. CLINI DEBI INFOR MATIO N: Menst rual Statu s: LMP (if appli cable ): Clini debi Histo ry/Pr eviou s Pap: Type of Neopl magda (if appli cable ): Signi fican t Clini debi Findi ngs: Other Histo ry: Hormo tex (if appli cable ): PAP EDUCA LAKEISHA L NOTE: The Pap Test is a scree justus test with an inher ent false negat jose rate. Liqui d-bas ed sampl ing may decre ase, but will not elimi ned, false negat jose resul ts. A negat jose resul t does not precl ude the prese nce and/o r devel opmen t of disea se, since the prese nce of abnor mal cells in the sampl e depen ds on the locat ion of the lesio n and sampl ing techn ique. Javy nued regul ar scree justus is the best metho d of cance r preve ntion . If repor violet cytol ogic findi ng do not corre late with physi debi and/o r histo rical findi ngs, furth er inves tigat ion is recom claudia d, as clini gabrielle warra nted. Not Available [facility] (Lab) [address], [place], [address], 08/28/2023 15:22:01 Result Notes None recorded. Procedures Surgical History Date Name Laterality Status Provider Name and Address Organization Details Recorded Time 024 IUD Removal completed EMMIE Orellana [address], [place], [address], [facility] 07/20/2023 11:59:19 024 IUD Insertion completed EMMIE Orellana [address], [place], [address], [facility] 07/20/2023 11:59:07 021 Date of Last Pap Smear completed Jessica Rodriguez [facility] 08/24/2023 09:49:46 019 completed Olga Souza [facility] 11/18/2020 16:32:19 013 cholecystectomy completed Alicia Kerns [facility] 10/14/2019 09:51:00 012 delivery completed Alicia [facility] 10/14/2019 09:50:25 009 procedure on radius completed Alicia [facility] 10/14/2019 09:50:53 003 termination of completed [facility] 01/19/2022 18:15:01 000 Colposcopy completed [facility] 11/18/2020 16:34:11 000 Colposcopy completed [facility] 11/18/2020 16:34:46 000 LEEP completed [facility] 11/25/2020 11:46:20 Colposcopy completed [facility] 08/24/2023 09:49:10 LEEP completed [facility] 08/24/2023 09:49:10 Imaging Results None recorded. Procedure Notes None recorded. Medical Equipment None Reported. Allergies Allergen ID Allergen Name Allergen Category Reaction Reaction Severity Criticality Documentation Date Start Date Code Code System Note Provider Name and Address Organization Details Recorded Time 647 Product containin g penicilli n (product) medicatio n Not available Not available Not available 10/14/2019 10566 [id number] SEAN Alicia Saumya [facility] 0 09:45:40 Medications Name Sig Start Date Stop Date Status Note LastModified by Organization Details LastModified Time cyclobenzap rine 10 mg tablet TAKE 1 TABLET BY MOUTH THREE TIMES DAILY NEEDED FOR MUSCLE SPASM 01/20 completed Not Available Not Available Not Available Mirena 21 mcg/24 hr (up to 8 years) 52 mg intrauterin e device Take 1 device by intrauter ine route. 2023 active Not Available Not Available Not Avai lable clindamycin HCl 300 mg capsule TAKE 1 CAPSULE BY MOUTH EVERY 8 HOURS 11/19 completed Not Available Not Available Not Available triazolam 0.25 mg tablet 11/19 completed Not Available Not Available Not Available trazodone 50 mg tablet TAKE 1 TABLET BY MOUTH EVERY DAY AT BEDTIME NEEDED FOR INSOMNIA active Not Available Not Available No t Available azithromyci n 250 mg tablet TAKE 2 TABLETS BY MOUTH FOR 1 DAY THEN TAKE 1 TABLET BY MOUTH DAILY FOR 4 DAYS 07/20 completed Not Available Not Available Not Available fluconazole 150 mg tablet TAKE 1 TABLET BY MOUTH DAILY 07/20 completed Not Available Not Available Not Available hydrocodone 5 mg-acetamin ophen 325 mg tablet TAKE 1 TABLET BY MOUTH EVERY 6 HOURS NEEDED FOR PAIN 11/19 completed Not Available Not Available Not Available senna 8.6 mg tablet TAKE 1 TABLET BY MOUTH TWICE DAILY NEEDED FOR CONSTIPAT ION 11/19 completed Not Available Not Available Not Available prednisone 20 mg tablet TAKE 1 TABLET BY MOUTH TWICE DAILY UNTIL ALL TAKEN DIRECTED 07/20 completed Not Available Not Available Not Available sertraline 100 mg tablet 11/19 completed Not Available Not Available Not Available metronidazo le 500 mg tablet TAKE 1 TABLET BY MOUTH EVERY 12 HOURS FOR 7 DAYS ALCOHOL CONSUMPTI ON SHOULD BE AVOIDED DURING TREATMENT AND FOR 24 HOURS AFTER LAST DOSE. 01/20 completed Not Available Not Available Not Available acetaminoph en 300 mg-codeine 30 mg tablet 10/13 completed Not Available Not Available Not Available ciprofloxac in 500 mg tablet 11/19 completed Not Available Not Available Not Available sulfamethox azole 800 mg-trimetho prim 160 mg tablet TK 1 T PO Q 12 H FOR 10 DAYS 11/19 completed Not Available Not Available Not Available doxycycline monohydrate 100 mg tablet TAKE 1 TABLET BY MOUTH TWICE DAILY FOR 7 DAYS 07/20 completed Not Available Not Available Not Available ketorolac 10 mg tablet 11/19 completed Not Available Not Available Not Available amitriptyli ne 10 mg tablet TK 2 TS PO QHS 11/19 completed Not Available Not Available Not Available benzonatate 100 mg capsule 11/19 completed Not Available Not Available Not Available doxycycline monohydrate 100 mg capsule TAKE 1 CAPSULE BY MOUTH TWICE DAILY 07/20 completed Not Available Not Available Not Available cephalexin 500 mg capsule TAKE 1 CAPSULE BY MOUTH EVERY 12 HOURS 07/20 completed Not Available Not Available Not Available prednisone 50 mg tablet TAKE 1 TABLET BY MOUTH DAILY FOR 5 DAYS 07/20 completed Not Available Not Available Not Available montelukast 10 mg tablet TAKE 1 TABLET BY MOUTH DAILY 07/20 completed Not Available Not Available Not Available codeine 10 mg-guaifene sin 100 mg/5 mL oral liquid TAKE 5 ML BY MOUTH EVERY 6 HOURS NEEDED FOR COUGH 07/20 completed Not Available Not Available Not Available lorazepam 1 mg tablet TAKE 1 TABLET BY MOUTH THREE TIMES DAILY NEEDED FOR ANXIETY active Not Available Not Available No t Available azelastine 137 mcg (0.1 %) nasal spray USE 1 SPRAY IN EACH NOSTRIL EVERY 12 HOURS active Not Available Not Available No t Available levofloxaci n 500 mg tablet TAKE 1 TABLET BY MOUTH DAILY FOR 7 DAYS 01/20 completed Not Available Not Available Not Available levofloxaci n 750 mg tablet TAKE 1 TABLET BY MOUTH DAILY FOR 10 DAYS 11/19 completed Not Available Not Available Not Available methylpredn isolone 4 mg tablets in a dose pack FOLLOW PACKAGE DIRECTION S 07/20 completed Not Available Not Available Not Available albuterol sulfate HFA 90 mcg/actuati on aerosol inhaler INL 2 PFS PO Q 4 H PRF BRONCHOSP ASM active Not Available Not Available No t Available ondansetron 4 mg disintegrat ing tablet DISSOLVE ONE TABLET BY MOUTH EVERY 6 HOURS NEEDED FOR NAUSEA- 1ST LINE 11/19 completed Not Available Not Available Not Available fluticasone propionate 50 mcg/actuati on nasal spray,suspe nsion 07/20 completed Not Available Not Available Not Available sertraline 50 mg tablet TAKE 1 TABLET BY MOUTH DAILY 07/20 completed Not Available Not Available Not Available fluticasone propionate 110 mcg/actuati on HFA aerosol inhaler INHALE 2 PUFFS BY MOUTH EVERY 12 HOURS 07/20 completed Not Available Not Available Not Available amoxicillin 875 mg-potassiu m clavulanate 125 mg tablet TAKE 1 TABLET BY MOUTH TWICE DAILY FOR 10 DAYS 07/20 completed Not Available Not Available Not Available cyclobenzap rine 5 mg tablet TAKE 1 TABLET BY MOUTH THREE TIMES DAILY NEEDED FOR MUSCLE SPASM 07/20 completed Not Available Not Available Not Available minocycline 50 mg tablet TAKE 1 TABLET BY MOUTH TWICE DAILY 11/19 completed Not Available Not Available Not Available ciprofloxac in 0.3 %-dexametha sone 0.1 % ear drops,suspe nsion SHAKE LIQUID AND INSTILL 4 DROPPERFU L TO RIGHT EAR EVERY 12 HOURS FOR 7 DAYS 07/20 completed Not Available Not Available Not Available Singulair 01/20 completed Not Available Not Available Not Available Trazodone 01/20 completed Not Available Not Available Not Available Symbicort 160 mcg-4.5 mcg/actuati on HFA aerosol inhaler INL 2 PFS PO Q 12 HOURS. RM AFTER U 07/20 completed Not Available Not Available Not Available Symbicort 80 mcg-4.5 mcg/actuati on HFA aerosol inhaler INL 2 PFS PO Q 12 HOURS. RM AFTER U 11/19 completed Not Available Not Available Not Available GaviLyte-G 236 gram-22.74 gram-6.74 gram-5.86 gram oral solution 11/19 completed Not Available Not Available Not Available Vitals Date Recorded Body height Body mass index (BMI) Body weight Systolic blood pressure Diastolic blood pressure Provider Name and Address Organization Details Last Updated DateTime 10/14/2019 2103.12 cm 0.3 kg/m2 745983.8 6 g 132 mm[Hg] 85 mm[Hg] Madison Rivera [facility] 0 09:59:19 Date Recorded Body height Body mass index (BMI) Body weight Systolic blood pressure Diastolic blood pressure Provider Name and Address Organization Details Last Updated DateTime 11/19/2020 175.26 cm 41.6 kg/m2 565970.0 5 g 131 mm[Hg] 88 mm[Hg] Olga Souza [facility] 1 09:57:58 Date Recorded Body height Body mass index (BMI) Body weight Systolic blood pressure Diastolic blood pressure Provider Name and Address Organization Details Last Updated DateTime 01/20/2022 175.26 cm 41.8 kg/m2 971096.6 4 g 132 mm[Hg] 84 mm[Hg] Olga Souza [facility] 2 10:19:55 Date Recorded Body weight Systolic blood pressure Diastolic blood pressure Provider Name and Address Organization Details Last Updated DateTime 07/20/2023 108611.83 g 135 mm[Hg] 86 mm[Hg] Jessica Rodriguez [facility] 07/20/2023 11:14:02 Date Recorded Body weight Systolic blood pressure Diastolic blood pressure Provider Name and Address Organization Details Last Updated DateTime 08/24/2023 897376.05 g 136 mm[Hg] 86 mm[Hg] Jessica Rodriguez [facility] 08/24/2023 09:48:58 Social History Question Answer Notes LastModified by Organizat ion Details LastModified Time Tobacco Smoking Status Current Every Day Smoker smoking for 15 years Venessa Montes chelo, [facility] 01/20/2022 10:12:26 Do You Have An Advance Directive? No [email or web address] Information not available 11/19/2020 What Is Your Level Of Alcohol Consumption? None [email or web address] Information not available 11/19/2020 How Many Years Have You Consumed Alcohol? 10 [email or web address] Information not available 11/19/2020 Are You Blind Or Do You Have Difficulty Seeing? No [email or web address] Information not available 11/19/2020 What Is Your Level Of Caffeine Consumption? Occasional [email or web address] Information not available 11/19/2020 How Much Tobacco Do You Chew? None [email or web address] Information not available 11/19/2020 In The 14 Days Before Symptom Onset, Have You Had Close Contact With A Laboratory-confir med COVID-19 While That Case Was Ill? No [email or web address] Information not available 11/19/2020 In The 14 Days Before Symptom Onset, Have You Had Close Contact With A Person Who Is Under Investigation For COVID-19 While That Person Was Ill? No [email or web address] Information not available 11/19/2020 Have You Been To An Area Known To Be High Risk For COVID-19? No Information not available 11/19/2020 Are You Deaf Or Do You Have Serious Difficulty Hearing? No [email or web address] Information not available 11/19/2020 What Type Of Diet Are You Following? REGULAR [email or web address] Information not available 11/19/2020 What Is The Highest Grade Or Level Of School You Have Completed Or The Highest Degree You Have Received? 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 No [email or web address] Information not available 11/19/2020 Do You Use Protection During Sex? No [email or web address] Information not available 11/19/2020 Do You Use Your Seat Belt Or Car Seat Routinely? Yes [email or web address] Information not available 11/19/2020 Do You Have Smoke And Carbon Monoxide Detectors In Your Home? Yes [email or web address] Information not available 11/19/2020 At What Age Did You Start Smoking Tobacco? 15 [email or web address] Information not available 11/19/2020 How Much Tobacco Do You Smoke? 0.5 PPD Information not available 10/14/2019 Do You Feel Stressed (tense, Restless, Nervous, Or Anxious, Or Unable To Sleep At Night)? [id number] [email or web address] Information not available 11/19/2020 Do You Use Any Illicit Or Recreational Drugs? No [email or web address] Information not available 11/19/2020 Do You Use Sunscreen Routinely? Yes [email or web address] Information not available 11/19/2020 Have You Used IV Drugs? No [email or web address] Information not available 11/19/2020 Sex: Unknown Functional Status Question Answer Note LastModified by Organizat ion Details LastModified Time Do you have difficulty walking or climbing stairs? No Information not available 01/20/2022 Are you able to walk? YESWOREST [email or web address] Information not available 11/19/2020 Are you able to care for yourself? Yes [email or web address] Information not available 01/20/2022 Do you have difficulty dressing or bathing? No [email or web address] Information not available 01/20/2022 What is your exercise level? Moderate 2x's a week Information not available 10/14/2019 Mental Status None recorded. Family History Relationship Description Onset Age of this Age Resolved Age Notes LastModified by Organization Details LastModified Time Maternal Grandmother Anemia [email or web address] Not available 2019 09:59:46 Maternal Grandmother Diabetes mellitus [email or web address] Not available 2019 10:00:36 Maternal Grandmother Hypertensive disorder [email or web address] Not available 2019 10:01:15 Maternal Grandmother Psychotic disorder [email or web address] Not available 2023 09:45:59 Paternal Grandmother Anemia [email or web address] Not available 2019 09:59:46 Paternal Grandmother Diabetes mellitus [email or web address] Not available 2019 10:00:36 Paternal Grandmother Hypertensive disorder [email or web address] Not available 2019 10:01:15 Paternal Grandmother Psychotic disorder [email or web address] Not available 2023 09:45:59 Father Heart disease [email or web address] Not available 2019 09:59:57 Father Hypercholest erolemia [email or web address] Not available 2019 10:00:49 Father Hypertensive disorder [email or web address] Not available 2019 10:01:15 Paternal Aunt Family history of cancer of colon Not available 2023 09:45:59 Paternal Aunt Psychotic disorder [email or web address] Not available 2023 09:45:59 Maternal Aunt Family history of cancer of colon [email or web address] Not available 2023 09:45:59 Maternal Aunt Psychotic disorder [email or web address] Not available 2023 09:45:59 Mother Diabetes mellitus [email or web address] Not available 2019 10:00:36 Mother Hypertensive disorder [email or web address] Not available 2019 10:01:15 Mother Psychotic disorder Not available 2023 09:45:59 Brother Diabetes mellitus [email or web address] Not available 2019 10:00:36 Brother Hypertensive disorder [email or web address] Not available 2019 10:01:15 Sister Hypertensive disorder [email or web address] Not available 2019 10:01:15 Maternal Uncle Psychotic disorder Not available 2023 09:45:59 Paternal Uncle Psychotic disorder [email or web address] Not available 2023 09:45:59 Medical History Condition Response Allergies (Food, seasonal, environmental ) Y Other N Breast Cancer N Drug/Latex Allergies/Reactions Y Blood Transfusion N Dermatologic Disorders N Lung Disease N Defects or Inherited Disease N Breast Problem N Gestational Diabetes N Hematologic disorders N Anesthesia Complications N History of STI Y Deep Vein Thrombosis N Polycystic ovary syndrome N Anxiety Disorder Y Autoimmune disease N Arthritis N Infertility N Polyps N Acid Reflux (GERD) N History of abnormal pap Y Cancer N Stroke N Varicosities N Neurologic/Epilepsy N Endometriosis N High Cholesterol N Headaches N Fibromyalgia N Kidney Disease N Heart Problems N Kidney or Bladder Problems N Thyroid Problems N GI Problems N Eating Disorder N Anemia N Art (IVF or FET) N Psychiatric Illness N Ovarian Cancer N Diabetes N Pulmonary (TB, Asthma) N Hepatitis/Liver Disease N No Past Medical History N Eczema N Urinary Tract Infection N Abuse/Domestic Violence N Asthma Y Trauma/Violence N Depression/ depression Y Heart Disease N Pre-Eclampsia N Hypertension N Osteoporosis N Thrombophilias N Gynecological History Statement/Question Response Date of LMP 05/28/2015 N Was last menstrual period normal Y STIs/STDs Y Date of control 09/26/2015 IUD Desired Control Method IUD Abnormal Pap Yes On BCP's at Conception? N HPV Vaccine N Colposcopy 05/28/1999 Current Control Method IUD 12 Age at First Child 26 Sexually Active? Y Age of first menstrual cycle 11 Date of Last Pap Smear 11/19/2020 Sexual Problems? N LMP Unknown 05/28/2018 N 05/28/1999 Obstetrics History GPAL:G 5 P 2 0 3 0 Type Value Full Term 2 Induced 1 Spontaneous 2 Total 5 Past Encounters Encounter ID Performer Location Encounter Start Date Encounter Closed Date Diagnosis/Indication Diagnosis SNOMED-CT Code Diagnosis ICD10 Code Diagnosis Note [id number] EMMIE [facility] [address] [address] 10/14/2019 09:38:17 10/14/2019 10:32:04 Gynecologic examination 48673344 Z01.419 Take Calcium with Vitamin D 1200mg daily if not receiving in daily diet. It is strongly advised to have an annual flu shot and up can obtain at most pharmacies . If you have not had a TDap shot in the last 10 years you should obtain one as well. Discussed with patient & provided with informatio n regarding Gardisil vaccine to prevent the 4 strains for HPV that cause cervical cancer if under age 26. Encourage safe sexual practices, to use condoms and limit partners if not already in a monogamous relationsh ip. Do monthly self breast exams. Have mammogram yearly or every other year depending on family history. BRCA testing is now available for patients with strong genetic history of female cancer. If interested contact the office. Engage in daily exercise of low impact aerobic exercise 45-60 minutes 4-5 times weekly. Avoid tobacco and illicit drugs as well as using moderation with alcohol intake less than 1-2 8 oz beverages daily. This lifestyle behavior pattern will lead to less health conditions and longer life span. If BMI greater than 25 weight watchers or dietary consult advised. Patient received above instructio ns, and questions have been answered. If you have any questions please call or respond to this email. Patient was made aware of the patient portal and may obtain a paper copy of today's plan if desired. Mirena IUD [address] Pap/HPV sent Hx abn pap with Leep x 2 (1999) WIll sign JIMBO for records from previous [employer] to be sent. Steady partner. [facility] std [id number] [facility] [address],[place] [address] 11/19/2020 09:17:25 11/19/2020 10:29:11 Gynecologic examination 72951860 Z01.419 [id number] [facility] [address],[place] [address] 01/20/2022 10:12:13 01/20/2022 10:38:08 Gynecologic examination 16391901 Z11.51 Z11.3 [id number] EMMIE Orellana [place] [address],[place] [address] 07/20/2023 10:58:15 07/20/2023 12:08:28 Insertion of intrauterine contraceptive device 75319552 Z30.430 Detailed health hx updated and reviewed todayUPT (-)decline d STI screenr/b reviewedco nsent reviewed and signedMire na IUD removal/re placement performed (see procedure note)preca utions discussedR TC for string check/WWE in 4-6 weeks She has been counseled on all of the r/b/a of placement of an intrauteri ne device that include but are not limited to uterine perforatio n, injury to cervix, vagina, bladder, and bowel.Risk s of bleeding due to injury or increased irregular bleeding due to progestin effect of the device. Risks of infection would be increased within the first 21 days of placement with concomitan t cervicitis . She understand s that the device will need to be removed in this instance due to increased risk of Pelvic inflammato ry disease. Patient is aware she is at higher risk for STD and if contracted she could lose her fertility. Pt is aware that if occurs that she should contact office immediatel y to rule out ectopic which could be life threatenin g. IUD will also need to be removed and this could cause miscarriag e. Patient also informed that in the event her strings are absent or embedded at the time of removal she may need to have the IUD surgically removed. She was informed of the above and properly consented. IUD placed w/o complicati on. Patient should return to office after next period to check for string placement. Patient to expect irregular bleeding but should be seen in the ED if bleeding increases to soaking a pad an hour for at least 2 hours. She verbalized understand ing. Contracept ion care management 340926905 Z30.9 Removal of intrauterine contraceptive device 3006036619 Z30.432 [id number] EMMIE Orellana [place] [address] [address] 08/24/2023 09:45:24 08/24/2023 10:18:38 Gynecologic examination 70650399 Z01.419 WWEBC - mirena IUD, inserted 07/20/2023 ap updateddec lined STI screenrout ine labs UTD/PCPRTC in 1 yr or sooner if needed Take Calcium with Vitamin D daily if not receiving in daily diet.It is strongly advised to have an annual flu shot and up can obtain at most pharmacies . If you have not had a TDap shot in the last 10 years you should obtain one as well. Discussed with patient & provided with informatio n regarding Gardisil vaccine to prevent the 4 strains for HPV that cause cervical cancer if under age 26.Encoura ge safe sexual practices, to use condoms and limit partners if not already in a monogamous relationsh ip.Do monthly self breast exams. Engage in daily exercise of low impact aerobic exercise 45-60 minutes 4-5 times weekly. Avoid tobacco and illicit drugs. This lifestyle behavior pattern will lead to less health conditions and longer life span. If BMI greater than 25 dietary consult advised.Kvng parra received above instructio ns, and questions have been answered. If you have any questions please call or respond to this email. Patient was made aware of the patient portal and may obtain a paper copy of today's plan if desired./ Health Concerns Section Related Observation LastModified by Organization Detai ls LastModified Time None Recorded Concern Status LastModified by Organization Details LastModified Time None Recorded Advance Directives Directive N: Payers Encounter Date Sequence Insurance Name Policy Number Policy Koroma Covered Member ID Koroma Member ID Guarantor Name 10/14/2019 1 [facility] (MEDICAID HM) [id number] Nora Forgy [id number] Nora Forgy 11/19/2020 1 [facility] (MEDICAID HMO) [id number] Nora Forgy [id number] Nora Forgy 01/20/2022 1 [facility] (MEDICAID HMO) [id number] Nora Forgy [id number] Nora Forgy 07/20/2023 1 [facility] (MEDICAID HMO) [id number] Nora Forgy [id number] Nora Forgy 08/24/2023 1 [facility] (MEDICAID HMO) [id number] Nora Forgy [id number] Nora Forgy Notes Date Note Type Note Provider Name and Address Organization Details Recorded Time 10/14/2019 text/html Annual GYNReport ed bypatient.History: no gynecologic complaints Menstrual cycle:Normal menses Urinary symptoms:No hematuria; No incontinence Vulva:No genital lesion Vagina:Normal vaginal discharge Breast:No breast pain; No breast lump; No nipple discharge Sexual complaints:No sexual complaints; No pain during intercourse; Normal libido Menopausal Symptoms:No menopausal symptoms; Normal vaginal lubrication Psychological symptoms:No depression; No anxiety; No PMDD Preventive measures:Encourage self breast examination; Encourage regular exercise; Encourage no tobacco use; Followed with Q3 year pap smear and high risk HPV typing Yisel Miller, YANNICK-BC [address], [place], [address], [facility] 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 11/19/2020 10:29:05 01/20/2022 text/html Annual GYNReport ed bypatient.Menstrua l cycle:Normal menses Urinary symptoms:No hematuria; No incontinence Vulva:No genital lesion Vagina:Normal vaginal discharge Breast:No breast pain; No breast lump; No nipple discharge Current Contraception:Sati sfied with current contraception; Intrauterine device (iud) Sexual complaints:No sexual complaints; No pain during intercourse; Normal libido Menopausal Symptoms:No menopausal symptoms; Normal vaginal lubrication Psychological symptoms:No depression; No anxiety; No PMDD Preventive measures:Encourage self breast examination; Encourage regular exercise; Encourage no tobacco useNotes:some mild cramping monthly Merna Dial CNM [address], [place], [address], [facility] 01/20/2022 10:35:39 07/20/2023 text/html Patient presents for IUD removal/insertion. current Mirena IUD inserted 11/2015, will 11/2023 EMMIE Orellana [address], [place], [address], [facility] 07/20/2023 12:09:56 08/24/2023 text/html Annual GYNReport ed bypatient.Menstrua l cycle:Normal menses Urinary symptoms:No hematuria; No incontinence Vulva:No genital lesion Vagina:Normal vaginal discharge Breast:No breast pain; No breast lump; No nipple discharge Current Contraception:Sati sfied with current contraception; Intrauterine device (iud) Sexual complaints:No sexual complaints; No pain during intercourse; Normal libido Menopausal Symptoms:No menopausal symptoms; Normal vaginal lubrication Psychological symptoms:No depression; No anxiety; No PMDD Preventive measures:Encourage self breast examination; Encourage regular exercise; Encourage no tobacco use; Encourage regular mammograms starting age 39Notes:WWEh/o LEEP in 2000last paps 2019 - normal10/2020 - ascus, HPV (-) mirena IUD, inserted 07/20/2023 - doing well, no issues Anuradha Baker, WHYANNICK [address], [place], [address], [facility] 08/24/2023 10:16:46 OBGyn Episode Ob Episode Information Episode Created Date Number of Fetuses Patient Bloodtype Patient rh Status Prepregnancy Weight lbs Domestic Partner Domestic Partner Phone Father Name Bottling Room Worker Status 10/14/19 20 1 CLOSED Fetus Data First Name Last Name Admitted to NICU Weight (g) Sex Living Outcome Pediatric Complications Fetus ID Race Codes Race Delivery Type , Spontane ous [id number] Jac Calculation Initial Jac Date Initial Exam Date Initial Exam Provider Initial Ultrasound Date Last Menstrual Period Date Ultra Sound Weeks Gestation 0 Eighteen To Twenty Week Jac Update Ultra Sound Date Fundal Height At Umbil Quickening Date Ultra Sound Latest Weeks Gestation Final Jac Confirmed By Final Jac Confirmed Date Final Jac Date Ultra Sound Latest Days Gestation 0 0 Menstrual History Last Menstrual Date Menses Monthly On Bcp Conception Prior Menses Frequency Hcg Plus Date Menarche Onset Age Delivery Information Delivery Date Delivery Type Labor Anesthesia Weeks Gestation Incision Type Labor Labor Length Hrs Delivered By Post Complications Tubal Sterilization Discharge Date Comments 6 Discharge Information Feeding Method Contraceptive Method Maternal HG B and HCT Levels Ob Episode Information Episode Created Date Number of Fetuses Patient Bloodtype Patient rh Status Prepregnancy Weight lbs Domestic Partner Domestic Partner Phone Father Name Bottling Room Worker Status 10/14/19 20 1 CLOSED Fetus Data First Name Last Name Admitted to NICU Weight (g) Sex Living Outcome Pediatric Complications Fetus ID Race Codes Race Delivery Type 3288.54 2 F Full Term 1554 Primary Jac Calculation Initial Jac Date Initial Exam Date Initial Exam Provider Initial Ultrasound Date Last Menstrual Period Date Ultra Sound Weeks Gestation 0 Eighteen To Twenty Week Jac Update Ultra Sound Date Fundal Height At Umbil Quickening Date Ultra Sound Latest Weeks Gestation Final Jac Confirmed By Final Jac Confirmed Date Final Jac Date Ultra Sound Latest Days Gestation 0 0 Menstrual History Last Menstrual Date Menses Monthly On Bcp Conception Prior Menses Frequency Hcg Plus Date Menarche Onset Age Delivery Information Delivery Date Delivery Type Labor Anesthesia Weeks Gestation Incision Type Labor Labor Length Hrs Delivered By Post Complications Tubal Sterilization Discharge Date Comments 2 40 ( Cathie) Discharge Information Feeding Method Contraceptive Method Maternal HG B and HCT Levels Ob Episode Information Episode Created Date Number of Fetuses Patient Bloodtype Patient rh Status Prepregnancy Weight lbs Domestic Partner Domestic Partner Phone Father Name Bottling Room Worker Status 10/14/19 20 1 CLOSED Fetus Data First Name Last Name Admitted to NICU Weight (g) Sex Living Outcome Pediatric Complications Fetus ID Race Codes Race Delivery Type 3515.33 8 F Full Term 1555 Vaginal Delivery Jac Calculation Initial Jac Date Initial Exam Date Initial Exam Provider Initial Ultrasound Date Last Menstrual Period Date Ultra Sound Weeks Gestation 0 Eighteen To Twenty Week Jac Update Ultra Sound Date Fundal Height At Umbil Quickening Date Ultra Sound Latest Weeks Gestation Final Jac Confirmed By Final Jac Confirmed Date Final Jac Date Ultra Sound Latest Days Gestation 0 0 Menstrual History Last Menstrual Date Menses Monthly On Bcp Conception Prior Menses Frequency Hcg Plus Date Menarche Onset Age Delivery Information Delivery Date Delivery Type Labor Anesthesia Weeks Gestation Incision Type Labor Labor Length Hrs Delivered By Post Complications Tubal Sterilization Discharge Date Comments 5 36 ( Ngoc) Discharge Information Feeding Method Contraceptive Method Maternal HG B and HCT Levels Ob Episode Information Episode Created Date Number of Fetuses Patient Bloodtype Patient rh Status Prepregnancy Weight lbs Domestic Partner Domestic Partner Phone Father Name Bottling Room Worker Status 10/14/19 20 1 CLOSED Fetus Data First Name Last Name Admitted to NICU Weight (g) Sex Living Outcome Pediatric Complications Fetus ID Race Codes Race Delivery Type , Induced 1556 Jac Calculation Initial Jac Date Initial Exam Date Initial Exam Provider Initial Ultrasound Date Last Menstrual Period Date Ultra Sound Weeks Gestation 0 Eighteen To Twenty Week Jac Update Ultra Sound Date Fundal Height At Umbil Quickening Date Ultra Sound Latest Weeks Gestation Final Jac Confirmed By Final Jac Confirmed Date Final Jac Date Ultra Sound Latest Days Gestation 0 0 Menstrual History Last Menstrual Date Menses Monthly On Bcp Conception Prior Menses Frequency Hcg Plus Date Menarche Onset Age Delivery Information Delivery Date Delivery Type Labor Anesthesia Weeks Gestation Incision Type Labor Labor Length Hrs Delivered By Post Complications Tubal Sterilization Discharge Date Comments 3 Discharge Information Feeding Method Contraceptive Method Maternal HG B and HCT Levels Ob Episode Information Episode Created Date Number of Fetuses Patient Bloodtype Patient rh Status Prepregnancy Weight lbs Domestic Partner Domestic Partner Phone Father Name Bottling Room Worker Status 10/14/19 20 1 CLOSED Fetus Data First Name Last Name Admitted to NICU Weight (g) Sex Living Outcome Pediatric Complications Fetus ID Race Codes Race Delivery Type , Spontane ous 1558 Jac Calculation Initial Jac Date Initial Exam Date Initial Exam Provider Initial Ultrasound Date Last Menstrual Period Date Ultra Sound Weeks Gestation 0 Eighteen To Twenty Week Ajc Update Ultra Sound Date Fundal Height At Umbil Quickening Date Ultra Sound Latest Weeks Gestation Final Jac Confirmed By Final Jac Confirmed Date Final Jac Date Ultra Sound Latest Days Gestation 0 0 Menstrual History Last Menstrual Date Menses Monthly On Bcp Conception Prior Menses Frequency Hcg Plus Date Menarche Onset Age Delivery Information Delivery Date Delivery Type Labor Anesthesia Weeks Gestation Incision Type Labor Labor Length Hrs Delivered By Post Complications Tubal Sterilization Discharge Date Comments 6 Discharge Information Feeding Method Contraceptive Method Maternal HG B and HCT Levels
--- OUTSIDE RECORDS SUMMARY | 2024-10-04 08:10 | XMS_ITS | Data Portability ---
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 Plan of Treatment Reminders Order Date Submit Date Provider Last Modified By Organization Details Last Modified Time Details Appointments None recorded. Lab TSH, ultra-sens itive, serum 2017 018 [facility], [address] [place], [place] [address]jarred Hernando, [facility] [address], [place], [address], 8 14:22:15 HbA1c (hemoglobi n A1c), blood 2017 018 [facility], [address] [place] [address], [address], [place], [address], 8 14:22:15 CMP, serum or plasma 2017 018 [facility], [address] [place] [address] Hern[place], [address], [place], [address], 8 14:22:14 lipid panel, serum 2017 018 [facility], [facility], [address], [place], [address], 8 14:22:15 CBC 2017 018 [facility]LE[facility], [facility] Vill[facility], [address], [place], [address], 8 14:22:13 Referral None recorded. Procedures None recorded. Surgeries None recorded. Imaging None recorded. Medication Orders Wellbutrin SR 150 mg tablet, 12 hr sustained- release 2017 018 [facility], [address] [place] [address], [address], 8 14:22:09 Patient TargetsNo targets recorded. Patient Instructions Encounter Date Encounter Id Patient Instructions Last Modified By Organization Details Last Modified Time 09/14/2017 [id number] eating healthy foods: care instructions nsuthan Not available 09/14/2017 14:27:02 advised to quit smoking nsuthan Not available 09/14/2017 14:27:13 continue meds as prescribed healthy diet and exercise to loose wt f/u in 2 month nsuthan Not available 09/14/2017 14:27:33 Reason for Referral None Reported. Problems No Known Problems Procedures Surgical History Date Name Laterality Status Provider Name and Address Organization Details Recorded Time Cholecystectomy completed CHINYERE Tovar - [facility] 09/14/2017 13:43:34 Caesarean Section completed [facility]YERE Tovar - [facility] 09/14/2017 13:43:39 Dilation and Curettage completed [facility]ERE Tovar - [facility] 09/14/2017 13:43:43 LEEP completed CHINYERE Tovar - [facility] 09/14/2017 13:43:49 Imaging Results None recorded. Procedure Notes None recorded. Medical Equipment None Reported. Allergies Allergen ID Allergen Name Allergen Category Reaction Reaction Severity Criticality Documentation Date Start Date Code Code System Note Provider Name and Address Organization Details Recorded Time [id number] Product containin g penicilli n (product) medicatio n rash Not available Not available 09/14/2017 [id number] SNOMED CHINYERE Tovar [place] - [facility] 8 13:43:16 Medications Name Sig Start Date Stop Date Status Note LastModified by Organization Details LastModified Time bupropion HCl SR 150 mg tablet,12 hr sustained-rele ase Take 1 tablet twice a day by oral route. active Not Available Not Available No t Available promethazine-D M 6.25 mg-15 mg/5 mL oral syrup active Not Available Not Available Not Available clindamycin HCl 300 mg capsule active Not Available Not Available Not Available azithromycin 250 mg tablet active Not Available Not Availabl e Not Available ibuprofen 800 mg tablet active Not Available Not Available No t Available hydrocodone 5 mg-acetaminoph en 325 mg tablet active Not Available Not Available Not Available clindamycin HCl 150 mg capsule active Not Available Not Available Not Available Vitals Date Recorded Body height Body mass index (BMI) Body weight Heart rate Respiratory rate Body temperature Oxygen saturation Oxygen saturation in Arterial blood by Pulse oximetry Systolic blood pressure Diastolic blood pressure Provider Name and Address Organization Details Last Updated DateTime 8 175.26 cm 41.2 kg/m2 675826. 63 g 116 /min 16 /min 98.7 [degF] 98 % 98 % 128 mm[Hg] 78 mm[Hg] Kelley steve MA [facility] 8 14:00:06 Social History Question Answer Notes LastModified by Organizat ion Details LastModified Time Tobacco Smoking Status Current Every Day Smoker Kelley Nuñez [place] null, [place] - [facility] 09/14/2017 13:47:07 What Is Your Level Of Alcohol Consumption? None Information not available 09/14/2017 What Is Your Level Of Caffeine Consumption? Moderate 32 Oz Soda And 8 Oz Coffee Daily Information not available 09/14/2017 How Much Tobacco Do You Chew? None Information not available 09/14/2017 What Type Of Diet Are You Following? REGULAR Information not available 09/14/2017 Which Illicit Or Recreational Drugs Have You Used? None Information not available 09/14/2017 Education 12 Calc For RMA -1 Yr Of School Information not available 09/14/2017 What Is Your Occupation? R[employer] Information not available 09/14/2017 Hard Of Hearing Or Deaf In One Or Both Ears? No Information not available 09/14/2017 Marital Status Single Infor mation not available 09/14/2017 What Was The Date Of Your Most Recent Tobacco Screening? 09/14/2017 Information n ot available 12/19/2018 Performs Monthly Self-breast Exam? No Information not available 09/14/2017 Seat Belts Used Routinely Yes [email or web address] Information not available 09/14/2017 Smoke Alarm In Home Yes [email or web address] Information not available 09/14/2017 How Much Tobacco Do You Smoke? 0.5 PPD Information not available 09/14/2017 General Stress Level High Information not available 09/14/2017 How Many Years Have You Smoked Tobacco? 15 Information not available 09/14/2017 Sex: Unknown Functional Status Question Answer Note LastModified by Organizat ion Details LastModified Time What is your exercise level? Occasional Information not available 09/14/2017 Mental Status None recorded. Family History Relationship Description Onset Age of this Age Resolved Age Notes LastModified by Organization Details LastModified Time Mother Depressive disorder aguilalay ma Not available 09/14/2017 13:46:25 Mother Diabetes mellitus aguilalay ma Not available 09/14/2017 13:46:31 Sister Depressive disorder aguilalay ma Not available 09/14/2017 13:46:25 Brother Depressive disorder aguilalay ma Not available 09/14/2017 13:46:25 Father Heart disease aguilalay ma Not available 09/14/2017 13:46:39 Father Hypertensive disorder aguilalay ma Not available 09/14/2017 13:46:54 Medical History Condition Response Skin Problems Y Allergies Y Gynecological History Statement/Question Response Current Control Method IUD LMP Obstetrics History GPAL:G 0 P 0 0 0 0 Past Encounters Encounter ID Performer Location Encounter Start Date Encounter Closed Date Diagnosis/Indication Diagnosis SNOMED-CT Code Diagnosis ICD10 Code Diagnosis Note [id number] MD Brannon Upton (Adult Med) [address] [place] [address] 09/14/2017 13:32:22 09/14/2017 15:33:22 Adult health examination 910216114 Z00.00 healthy diet and exercise discussed with pt Obesity 223802023 E66.9 Smoker 42001419 F17.200 Health Concerns Section Related Observation LastModified by Organization Detai ls LastModified Time None Recorded Concern Status LastModified by Organization Details LastModified Time None Recorded Advance Directives Directive None Recorded Payers Encounter Date Sequence Insurance Name Policy Number Policy Koroma Covered Member ID Koroma Member ID Guarantor Name 09/14/2017 1 [facility] (MEDICAID HMO) [id number] Nora Forgy [id number] Nora Forgy Notes Date Note Type Note Provider Name and Address Organization Details Recorded Time 09/14/2017 text/html pt is here to establish pcp. Denied any complaints. Pt is willing to quit smoking , tried wellbutrin in the past with success. Biju Zaragoza MD Attn: Accounting,[address] [place], [address], [facility] 09/14/2017 14:32:54 OBGyn Episode No OBEpisode recorded.
--- NOTE | 2024-10-04 08:16 | ED.SKABFB ---
HPI - Skin/Abscess/Foreign Bdy General Chief complaint: Skin/Abscess/Foreign Body Stated complaint: hives knees,scalp Time Seen by Provider: 10/04/24 08:25 Source: patient and RN notes reviewed Mode of arrival: ambulatory Limitations: no limitations History of Present Illness HPI narrative: 38-year-old female presents with concern for a rash on her scalp. She reports satellite patches on her lower leg. She reports the rash started on . She reports she was working side prior to the rash starting. She denies swollen lips, swollen tongue, trouble breathing. It is she reports she had been taking an antibiotic recently and stop that. She has shellfish and penicillin allergies. She reports she also started using a new shampoo about 2 weeks ago. MD complaint: rash Related Data Home Medications ?Medication ?Instructions ?Recorded ?Confirmed ?Last Taken ?Type cetirizine 10 mg capsule (Zyrtec) 10 mg PO DAILY PRN 08/05/24 08/05/24 Unknown History Allergies Allergy/AdvReac Type Severity Reaction Status Date / Time Penicillins Allergy Unknown Hives Verified 10/04/24 08:34 shellfish derived Allergy Hives Verified 10/04/24 08:34 Review of Systems Review of Systems: CONSTITUTIONAL: Denies malaise, chills, sweats, or fever. EYES: Denies redness, or discharge. ENT: Denies rhinorrhea, congestion, swollen lips, swollen tongue CARDIOVASCULAR: Denies chest pain, palpitations, or edema. RESPIRATORY: Denies cough or dyspnea. GASTROINTESTINAL: Denies abdominal pain, nausea, vomiting SKIN: Reports itchy rash on her scalp with a few spots on her lower legs MUSCULOSKELETAL: Denies joint pain or myalgia. NEUROLOGIC: Denies headache. All systems reviewed & are unremarkable except as noted in HPI and below [facility] Past Medical History Medical History Sinusitis Bronchitis Asthma Left radial fracture Cellulitis of right breast Abnormal colonoscopy diverticulosis Nausea Diverticulitis Hx gestational diabetes Surgical History Surgical History History of H/O dilation and curettage History of cholecystectomy Family History Family History Father Family history of premature coronary heart disease, Onset Age: 56 Hypertension Family history of cardiovascular disease, Onset Age: 56 Mother Diabetes mellitus Family history of obesity Family history of osteoporosis Depression Hypertension Grandparent Diabetes mellitus Family history of osteoporosis Family history of mental disorder Depression Sibling Depression Hypertension Sibling Suicide Other Suicide Other Family history of suicide Social History Social History Smoking packs per day: 0.5 Smoking cigarettes per day: 10.0 Smoking status: Current every day smoker Tobacco type: cigarettes and e-cigarettes/vaping Additional smoking assessment comments: no longer smoking cigarettes is vaping Alcohol intake: current Alcohol use details: rarely Substance use: never Substance use type: does not use Do You Feel Safe in your Home?: Yes Lack of Transportation: No Lack of Food: Never True Current Housing: I Have Housing Concerned About Future Housing: No Difficulty Paying Gas/Electric Bills: No Difficulty Paying for Meds: No Currently Unemployed: No Education: Trade/Vocational Certificate Difficulty w/ Childcare or Family Care: No Living arrangements: with family Gender identity (if verbalized by the patient): Female Comments At time of signature, agree with nursing past medical, surgical, social and family history. There is no relevant family history pertinent to the presenting complaint Exam Narrative: GENERAL: Well-appearing, well-nourished, and in no acute distress. HEAD: Normocephalic, atraumatic. EYES: PERRLA, conjunctivae clear, and EOMI. ENT: Mucous membranes moist. Oropharynx without edema, erythema or lesions. NECK: Supple. No lymphadenopathy CHEST: Clear to auscultation. No respiratory distress. HEART: Regular rate and rhythm. SKIN: Warm, dry. Raise Patches of erythema noted to the general scalp, along the hairline with a few satellite patches on the back of the neck. Three scattered small satellite patches notice lower legs. NEURO: Alert and oriented x3. PSYCH: Normal mood and affect Course Course Emergency Course: Patient is aware of diagnosis, understands and agrees to treatment plan. Anticipatory guidance given. Patient agrees to follow-up as directed and is aware of reasons to seek care at the emergency department. Portions of this record may have been created with voice recognition software Level of Care: Express Care Visit Vital Signs Vital signs: Vital Signs Temperature 98.7 F 10/04/24 08:11 Pulse Rate 85 05/10/25 08:11 Respiratory Rate 20 10/04/24 08:11 Blood Pressure 151/76 H 10/04/24 08:11 Pulse Oximetry 100 10/04/24 08:11 Oxygen Delivery Room Air 10/04/24 08:11 Temperature 98.7 F 10/04/24 08:11 Pulse Rate 85 10/04/24 08:11 Respiratory Rate 20 10/04/24 08:11 Blood Pressure 151/76 H 10/04/24 08:11 Pulse Oximetry 100 10/04/24 08:11 Oxygen Delivery Room Air 10/04/24 08:11 Reviewed. MDM - Skin/Abscess/Foreign Bdy MDM Narrative Medical decision making narrative: Does not appear at this time to be erythema multiforme, bullous, SJS, TEN; no evidence at this time to suggest RMSF, endocarditis or Lyme disease; patient looks well, nontoxic and is tolerating oral intake; no neurologic signs or symptoms; no headache, photophobia or neck pain; afebrile; appropriate for initial outpatient treatment; discussed the importance of follow-up, patient agrees; question, viral exanthema, contact dermatitis, allergic dermatitis, eczema, urticaria, tinea. No soft palate or uvula edema, no tongue, lip edema or other mucosal involvement, no respiratory compromise, no stridor, no wheezing, no wheezing, no history of syncope, no hypotension, no nausea, vomiting, or diarrhea. Instructed patient to go to nearest ER immediately for any worsening symptoms including but not limited to: fever, spreading rash, pain, sore throat, headache, dizziness, chest pain, trouble breathing, or any symptoms concerning to the patient. Critical Care Time Critical Care Time Critical Care Time: No Discharge Plan Discharge Clinical Impression: Contact dermatitis Patient Disposition: Home Condition: Stable Instructions: Contact Dermatitis (ED) Additional Instructions: Wash the area with gentle soap and water only. Take medication as directed Avoid scratching when possible to prevent worsening of the condition and disruption of the skin that could lead to bacterial infection To relieve itching, place a cool washcloth or some ice over the area that itches, rather than scratching Follow up with primary care provider or seek ER if you have trouble breathing, become hoarse, or start wheezing, develop belly cramps, vomiting or feel dizzy. Patient Language: Sierra Leonean Prescriptions: New prednisone 20 mg tablet 40 mg PO DAILY 5 Days Qty: 10 0RF No Action Zyrtec 10 mg capsule 10 mg PO DAILY PRN escitalopram oxalate 5 mg tablet 5 mg PO DAILY Qty: 30 2RF trazodone 50 mg tablet 50 mg PO HS PRN (Reason: Insomnia) Qty: 90 3RF lorazepam 1 mg tablet 1 mg PO DAILY PRN (Reason: anxiety) Qty: 30 0RF propranolol 10 mg tablet 10 mg PO TID Qty: 90 1RF Follow-up/Referrals: Lynsey Jewell MD [Primary Care Provider] - Time of Disposition: 08:35
[2024-10-04 08:31] VITALS: BP 145/91; PULSE 84; RESP 20; TEMP 36.6; O2SAT 99
== END 2024-10-04 08:35 | disposition home or self-care (01) ==
PROVIDERS: Emergency Provider Nurse Practitioner; PCP Family Medicine
DX: L25.9 Unspecified contact dermatitis, unspecified cause (principal); F17.290 Nicotine dependence, other tobacco product, uncomplicated; J45.909 Unspecified asthma, uncomplicated
CPT/HCPCS: 99213; G0463

== ENCOUNTER 2024-11-20 08:21 | Emergency (ER) | payer OTHER, SELFPAY ==
--- NOTE | ~2024-11-20 | XR_ITS ---
EXAMINATION: XR chest 2V DATE: 11/20/2024 09:32 INDICATION: Asthma presenting with wheezing, cough and chest congestion TECHNIQUE: PA and lateral views of the chest were obtained. COMPARISON: Chest radiograph dated 04/07/2024 FINDINGS: The lungs are clear with no focal airspace opacities, pulmonary edema, pleural effusion or pneumothor ax. The cardiomediastinal silhouette is normal. Mild thoracic spondylosis. IMPRESSION: 1. No acute cardiopulmonary disease. Reviewed, dictated and finalized at location A.
[2024-11-20 08:35] VITALS: BP 124/71; PULSE 87; RESP 16; TEMP 36.4; O2SAT 98
--- NOTE | 2024-11-20 08:52 | ED.URI ---
HPI - URI/Sore Throat General Chief Complaint: Upper Respiratory Infection Stated Complaint: Ear Pain/Sinus Problem/Chest Congestion Time Seen by Provider: 11/20/24 08:40 Source: patient and RN notes reviewed Mode of arrival: ambulatory Limitations: no limitations History of Present Illness HPI Narrative: 38-year-old female presents Express Care complaining of upper respiratory symptoms for approximately 8 days now. Patient reports having congestion, runny nose, mucopurulent nasal drainage, dry cough, chest congestion, and wheezing. Patient has a history asthma has been using her inhalers as directed. Patient states she does not feel short of breath or have any problems breathing but she notices that she feels like she is wheezing in her chest. Patient denies any chest pain. Patient has been trying [id number] medications any relief. Related Data Home Medications ?Medication ?Instructions ?Recorded ?Confirmed ?Last Taken ?Type cetirizine 10 mg capsule (Zyrtec) 10 mg PO DAILY PRN 08/05/24 08/05/24 Unknown History Allergies Allergy/AdvReac Type Severity Reaction Status Date / Time Penicillins Allergy Unknown Hives Verified 11/20/24 08:41 shellfish derived Allergy Hives Verified 11/20/24 08:41 Review of Systems Review of Systems: CONSTITUTIONAL: Denies fever, chills, body aches, or sweats. EYES: Denies visual changes, redness, or discharge. ENT: Positive for rhinorrhea, congestion, sinus pressure. Negative for sore throat, or otalgia. CARDIOVASCULAR: Denies chest pain, palpitations, or edema. RESPIRATORY: Positive for cough and wheezing. Negative for dyspnea. GASTROINTESTINAL: Denies abdominal pain, nausea, vomiting, or diarrhea. GENITOURINARY: Denies dysuria or hematuria. SKIN: Denies rash or itching. MUSCULOSKELETAL: Denies back pain, joint pain, or myalgia. NEUROLOGIC: Denies headache, numbness, or weakness. PSYCHIATRIC: Denies anxiety or depression. All other systems reviewed are negative, except as documented in HPI. FOR[facility]LY [facility] Past Medical History Medical History Sinusitis Bronchitis Asthma Left radial fracture Cellulitis of right breast Abnormal colonoscopy diverticulosis Nausea Diverticulitis Hx gestational diabetes Surgical History Surgical History History of H/O dilation and curettage History of cholecystectomy Family History Family History Father Family history of premature coronary heart disease, Onset Age: 56 Hypertension Family history of cardiovascular disease, Onset Age: 56 Mother Diabetes mellitus Family history of obesity Family history of osteoporosis Depression Hypertension Grandparent Diabetes mellitus Family history of osteoporosis Family history of mental disorder Depression Sibling Depression Hypertension Sibling Suicide Other Suicide Other Family history of suicide Social History Social History Smoking packs per day: 0.5 Smoking cigarettes per day: 10.0 Smoking status: Current every day smoker Tobacco type: cigarettes and e-cigarettes/vaping Additional smoking assessment comments: no longer smoking cigarettes is vaping Alcohol intake: current Alcohol use details: rarely Substance use: never Substance use type: does not use Do You Feel Safe in your Home?: Yes Lack of Transportation: No Lack of Food: Never True Current Housing: I Have Housing Concerned About Future Housing: No Difficulty Paying Gas/Electric Bills: No Difficulty Paying for Meds: No Currently Unemployed: No Education: Trade/Vocational Certificate Difficulty w/ Childcare or Family Care: No Living arrangements: with family Gender identity (if verbalized by the patient): Female Comments At the time of my signature, I reviewed and agree with the nursing past medical, surgical, social, and family history. There is no relevant family history pertinent to the patient complaint. Exam Narrative: GENERAL: This is a well-nourished, well-developed adult, in no apparent distress. They are non ill-appearing, nontoxic appearing. HEAD: normocephalic, atraumatic. EYES: Sclera clear/white. Vision is grossly intact. Conjunctiva normal bilaterally. Extraocular movements intact. EARS: External ears normal, auditory canals clear and without drainage, TMs without erythema or perforation. Hearing grossly intact. NOSE: External nose normal with no obvious nasal discharge, nasal turbinates erythematous with exudate present and rhinorrhea. Maxillary sinus tenderness to palpation. THROAT: Mucous membranes moist, posterior pharynx edematous without redness, no exudate. Uvula is midline. Postnasal drip present. NECK: Neck supple, non-tender without lymphadenopathy, masses or thyromegaly. CARDIOVASCULAR: Regular rate and rhythm without murmurs, gallops, or rubs. RESPIRATORY: Inspiratory wheezes throughout. Breath sounds equal bilaterally. No rales, or rhonchi. Respiratory rate normal, respiratory effort nonlabored, no respiratory distress, no accessory muscle use or retractions. Patient able to speak in full sentences. SKIN: warm, Dry, intact with no suspicious lesions or rash, good texture and turgor. NEURO: awake, alert, and oriented to person, place and time. There were no obvious focal neurologic abnormalities. EXTREMITIES: No joint tenderness, effusion, or edema noted. BACK: Nontender without deformity. Course Course Emergency Course: 916 -Patient completed DuoNeb. Repeat auscultation shows improved aeration and resolution of wheezing. Patient reports feeling a lot better feels like she can breathe easier. Level of Care: Express Care Visit Vital Signs Vital signs: Vital Signs Temperature 97.5 F L 11/20/24 08:35 Pulse Rate 87 11/20/24 08:35 Respiratory Rate 16 11/20/24 08:35 Blood Pressure 124/71 11/20/24 08:35 Pulse Oximetry 98 11/20/24 08:35 Oxygen Delivery Room Air 11/20/24 08:35 Temperature 97.5 F L 11/20/24 08:35 Pulse Rate 87 11/20/24 08:35 Respiratory Rate 16 11/20/24 08:35 Blood Pressure 124/71 11/20/24 08:35 Pulse Oximetry 98 11/20/24 08:35 Oxygen Delivery Room Air 11/20/24 08:35 MDM - URI/Sore Throat MDM Narrative Medical decision making narrative: Patient given DuoNeb for wheezing. Patient's wheezing resolved after nebulizer. Patient reports feeling a lot better. Patient is in no respiratory distress, or apparent distress. Patient is nontoxic appearing. Patient is speaking in full sentences. Chest x-ray shows no evidence of pneumonia or acute findings. Likely bacterial sinusitis causing an asthma exacerbation. Will treat with doxycycline and a short prednisone course. Discussed physical exam findings. Advised supportive measures and signs/symptoms to go to the ER. Pt is appropriate for outpt treatment and f/u. Differential Diagnosis Differential diagnosis: Likely upper respiratory infection, sinusitis, bronchitis and other (Asthma exacerbation, pneumonia) Imaging Data Radiologist's impression: ITS Impressions Chest X-Ray 11/20/24 09:33 IMPRESSION: 1. No acute cardiopulmonary disease. Discharge Plan Discharge Clinical Impression: Sinusitis Qualifiers: Sinusitis location: unspecified location Chronicity: acute Recurrence: non-recurrent Qualified Code(s): J01.90 - Acute sinusitis, unspecified Asthma Qualifiers: Asthma severity: mild Asthma persistence: intermittent Asthma complication type: with acute exacerbation Qualified Code(s): J45.21 - Mild intermittent asthma with (acute) exacerbation Patient Disposition: Home Condition: Stable Instructions: Antibiotic Form, Asthma (ED), Sinusitis (ED) Additional Instructions: Your chest x-ray is negative for any acute findings or pneumonia. You likely have a bacterial sinus infection that exacerbated her asthma symptoms. Take the antibiotics as directed and complete the course even if you start to feel better. Please wear sunscreen taking doxycycline if you are going to be outside. Take the prednisone as directed for your asthma. Take a more intake of food. Use your inhalers as directed. You may use a Neti pot saline rinse 3 times a day with lukewarm distilled water Continue to take Tylenol or Motrin for pain. Use a humidifier or vaporizer at night. Drink plenty of water. 8-10 glasses per day. Use flonase 2 times per day for 5 days then as needed Take mucinex 2 times per day and be sure to take with 8oz of water. Follow up with Primary provider in 3-5 days Please go to the ER if he develops any difficulty breathing, chest pains, worsening symptoms, or any other concerns Patient Language: [place] Prescriptions: New prednisone 20 mg tablet 40 mg PO DAILY 5 Days Qty: 10 0RF doxycycline monohydrate 100 mg capsule 100 mg PO BID 7 Days Qty: 14 0RF No Action Zyrtec 10 mg capsule 10 mg PO DAILY PRN escitalopram oxalate 5 mg tablet 5 mg PO DAILY Qty: 30 2RF trazodone 50 mg tablet 50 mg PO HS PRN (Reason: Insomnia) Qty: 90 3RF propranolol 10 mg tablet 10 mg PO TID Qty: 90 1RF Follow-up/Referrals: Lynsey Jewell MD [Primary Care Provider] - Time of Disposition: 09:44
[2024-11-20] MEDS: IPRATROPIUM 0.5 MG/ALBUTEROL SULFATE 2.5 MG AMPUL.NEB 3 ML INHALATION (08:58)
== END 2024-11-20 09:50 | disposition home or self-care (01) ==
PROVIDERS: PCP Family Medicine
DX: J01.90 Acute sinusitis, unspecified (principal); J45.21 Mild intermittent asthma with (acute) exacerbation; F17.290 Nicotine dependence, other tobacco product, uncomplicated
CPT/HCPCS: 71046; 94640; 99213; G0463

== ENCOUNTER 2025-03-12 13:56 | Outpatient (CLI) | payer OTHER, SELFPAY ==
--- NOTE | ~2025-03-12 | XR_ITS ---
EXAMINATION: [id number], 03/12/2025 14:13 CDT HISTORY: S99.921A - Unspecified injury of right foot, initial enco... COMPARISON: No comparisons available. Findings: No acute fracture or malalignment. No significant degenerative changes. Soft tissues unremarkable. Impression: No acute fracture or malalignment. Reviewed, dictated and finalized at location P. Impression: No acute fracture or malalignment.
--- OUTSIDE RECORDS SUMMARY | 2025-03-12 16:01 | XMS_ITS | Encounter Summary ---
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
--- OUTSIDE RECORDS SUMMARY | 2025-03-12 16:01 | XMS_ITS | Clinical Summary ---
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 Gender Identity Not on file Sexual [...] 2:08 PM CDT Height 175.3 cm (5' 9) 01/15/2019 2:08 PM CDT Body Mass Index [...] Years) (1 of 2 - PCV) 12/01/2003 HPV Vaccines (1 - 3-dose SCD M series) 12/01/2011 Cervical Cancer Screening Pa p with HPV Testing (Age 30 to 64) Every 5 Years 2014 Cervical Cancer Screening with HPV 2014 Mammogram Screening 2024 COVID-19 Vaccine (2023-2 5 season) 2025 Influenza Adult (#1) 2025 Meningococcal B Vaccine Aged Out No l onger eligible based on patient's age to complete this topic Meningococcal Vaccine Aged Out No mary kay rosaura eligible based on patient's age to complete this topic RSV Immunizations Under 20 Months Aged Out No longer eligible based on patient's age to complete this topic Insurance [place] Care Teams Swimming Pool Salesperson Relationship Specialty Start Date End Date None, Provider, PCP - General 01/08/19
--- OUTSIDE RECORDS SUMMARY | 2025-03-12 16:01 | XMS_ITS | Clinical Summary ---
Author Organization [facility] Address [address] [place] [address] Phone Care Team Providers Care Final Expense Agent Name Role Phone Lynsey Jewell MD Primary Care Provider [phone] Allergies Active Allergy Reactions Criticality Noted Date [...] mouth. Up to 3x a day Active Active Problems Problem Noted Date Diagnosed Date PTSD (post-traumatic stress disorder) 09/27/2022 Grief 09/27/2022 Diverticulitis of sigmoid colon 07/20/2020 Morbid obesity with BMI of 40.0-44.9, adult 06/29 Asthma 07/20/2020 Depression 07/20/2020 BMI 35.0-35.9,adult 10/17/2018 Constipation 10/17/2018 Elevated blood pressure reading 10/17/2018 Family History Medical History Relation Name Comments Depression Brother Tad 39 Drug Abuse Brother Tad 39 Alcohol Abuse Father [place] Heart Attack Father Alex fatal Hypertension Father Alex Kidney Disease Half-Brother Erwin 42 Colon Cancer Maternal Aunt Diabetes Maternal Grandmother Depression Mother Ivonne Diabetes Mother Ivonne Hypertension Mother Ivonne Depression Sister Sera 40 Relation Name Status Comments Brother Tad 39 Father [place] Half-Brother Erwin 42 Alive Maternal Aunt Maternal [...] Start Date Job 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 on file Not on file [...] 10:13 PM CDT Height 175.3 cm (5' 9) 09/23/2024 10:13 PM CDT Body Mass Index 36.92 09/23/2024 10:13 PM CDT Plan of Treatment Health Maintenance Due Date Last Done Comments Hepatitis C Virus (HCV) Screening 1984 Mammogram 1984 Pneumococcal Immunization Combined (1 of 2 - PCV) 12/01/2003 Pap Smear 2005 Human Papillomavirus (HPV) Immunization (1 - 3-dose SCDM series) 12/01/2011 Cervical Cancer Screening (CCS) 2014 HPV/Cotest 2014 Hepatitis B Immunization (3 of 3 - 19+ 3-dose series) 05/24/2017 01/24/2017, 11/22/2016 Discussion re Starting/Frequency of Mammograms 2024 Influenza Immunization (#1) 01/26/202502/26, 02/14/2017 SARS-COV-2 Immunization ( season) 2025 06/17/2021, 07/27/2020, 06/29/2020 Respiratory Syncytial Virus (RSV) Immunization (Adult) (1 - 1-dose 75+ series) 12/01/2059 DTaP/Tdap/Td Immunization Discontinued 2014, 03/18/2012 TdaP Immunization Completed 08/17/2014, 03/18/2012 Meningococcal Immunization (ACWY) Aged Out No longer eligible based on patient's age to complete this topic Rotavirus Immunization Aged Out No lo nger eligible based on patient's age to complete this topic Goals Goal Patient Goal Type Associated Problems Recent Progress Patient-Stated? Author I don't want to always feel this way.[panic attacks, memories, trauma related] Behavioral Health Improving(06/2024 1:52 PM CDT) Yes Astrid Prakash LCSW Note: Goal/Objective: Decrease the emotional distress related to the of her brother. Anticipated Time Frame for Goal Completion: 6 months Goal Reviewed with: patient Readiness to change: Ready to change Department associated with goal: [facility] Steps to achieve goal: [...] Ready to change Department associated with goal: [facility] Steps to achieve goal: [...] managing problematic responses to grief. Insurance MEDICAID [place] Advance Directives * Full Code (Latest Code [...] measures to stabilize the patient. Care Teams Final Expense Agent Relationship Specialty Start Date End Date Lynsey Jewell MD PCP - General Family Medicine 07/15/19
== END 2025-03-12 13:57 | disposition home or self-care (01) ==
PROVIDERS: PCP Family Medicine; Visit Provider Student in an Organized Health Care Education/Training Program
DX: S99.921A Unspecified injury of right foot, initial encounter (principal); X58.XXXA Exposure to other specified factors, initial encounter
CPT/HCPCS: 73630

== ENCOUNTER 2025-04-29 14:42 | Outpatient (CLI) | payer OTHER, SELFPAY ==
--- NOTE | ~2025-04-29 | MM_ITS ---
EXAMINATION: MM screening mary ellen BI w vinny HISTORY: Screening TECHNIQUE: Craniocaudal and mediolateral oblique 3-D tomosynthesis images were obtained and synthetic 2-D images were generated. CAD analysis was submitted and interpreted. COMPARISON: No prior mammogram is available for comparison at this institution. BREAST PARENCHYMAL COMPOSITION: Not dense: There are scattered areas of fibroglandular density. FINDINGS: There is no evidence of suspicious mass, calcification, or architectural distortion to suggest malignancy in either breast. There has been no suspicious interval change. IMPRESSION: 1. No mammographic evidence of malignancy. 2. Recommend routine screening mammography in one year. BI-RADS Category 1: Negative Reviewed, dictated and finalized at location I. 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
--- OUTSIDE RECORDS SUMMARY | 2025-04-29 16:05 | XMS_ITS | Clinical Summary ---
Author Organization [facility] Address [address] [place] [address] Phone Care Team Providers Care Second Cook And Baker Name Role Phone Lynsey Jewell MD Primary Care Provider [phone]- [phone] Allergies Active Allergy Reactions Criticality Noted Date [...] Abuse Brother Tad 39 Alcohol Abuse Father [place] Heart Attack Father Alex fatal Hypertension Father Alex Kidney Disease Half-Brother Erwin 42 Colon Cancer Maternal Aunt Diabetes Maternal Grandmother Depression Mother Ivonne Diabetes Mother Ivonne Hypertension Mother Ivonne Depression Sister Sera 40 Relation Name Status Comments Brother Tad 39 Father [place] Half-Brother Erwin 42 Alive Maternal Aunt Maternal [...] Start Date 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 Not on file [...] C Virus (HCV) Screening 1984 Mammogram 1984 Varicella Immunization (1 of 2 - 13+ 2-dose series) 1997 Pneumococcal Immunization Combined (1 of 2 - PCV) 12/01/2003 Pap Smear 2005 Human Papillomavirus (HPV) Immunization (1 - Risk 3-dose SCDM series) 12/01/2011 Cervical Cancer Screening [...] Ready to change Department associated with goal: [facility] Steps to achieve goal: [...] Ready to change Department associated with goal: [facility] Steps to achieve goal: [...] 10/18/2018 12:26 AM 10/19/2018 3:00 PM CPR-Full T reatment: FULL ARREST: Attempt Resuscitation/CPR wit intubation and mechanical ventilation. PRE-ARREST: Use entire range of life support measures to stabilize the patient. Care Teams Second Cook And Baker Relationship Specialty Start Date End Date Lynsey Jewell MD PCP - General Family Medicine 07/15/19
--- OUTSIDE RECORDS SUMMARY | 2025-04-29 16:05 | XMS_ITS | Encounter Summary ---
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
--- OUTSIDE RECORDS SUMMARY | 2025-04-29 16:05 | XMS_ITS | Data Portability ---
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 Patient [...] ok to replace mirena early for periods/cramping Not available 01/20/2022 10:35:11 08/24/2023 08/24/2023 Annual gynecological exam performed. Patient will come back in a year unless there are new symptoms. [email or web address] Not available 08/22/2023 10:24:30 12/16/2024 12/16/2024 Annual gynecological exam performed. Patient will come back in a year unless there are new symptoms. [email or web address] Not available 12/16/2024 11:44:18 Plan of Treatment Reminders Order Date Submit Date Provider Last Modified By Organization Details Last Modified Time Details Appointments None recorded. Lab pap, IG + HR HPV - HPV regardless but if HPV is positive need subtyping 16,18/45 2024 025 DANA [facility] (Lab), [address], [place], [address], 5 09:34:55 test, urine 2023 024 [email or web address] [place], [facility] [address], [address], [place], [address], 11:45:28 Referral None recorded. Procedures None recorded. Surgeries None recorded. Imaging None recorded. Medication Orders Mirena 21 mcg/24 hr (up to 8 years) 52 mg intrauterin e device 2023 024 [email or web address] Not available 11:50:22 Patient TargetsNo targets recorded. Patient InstructionsNo instructions recorded. Reason for Referral None Reported. Results Created Date Observation Date Name Description Value Unit Range Abnormal Flag Note LastModifiedBy Organization Detail LastModifiedTime 11/20/1911/19/2020 HEPAT ITIS C ANTIB BRIGIDO SCREE N, REFLE X TO CONFI RMATI ON hepatitis C antibody Non-re active non-re active This assay was perfo rmed using [employer] reage nts and test kits. Value s obtai joanie with other assay metho ds or kits canno t be used inter laguna eably . Not Available [facility] (Lab) [address], [place], [address], 11/22/2020 21:29:04 11/20/19 21 11/19/2020 HEPAT ITIS B SURFA CE ANTIG EN hepatitis B surface antigen Non-re active non-re active This assay was perfo rmed using [employer] reage nts and test kits. Value s obtai joanie with other assay metho ds or kits canno t be used inter laguna eably . Not Available [facility] (Lab) [address], [place], [address], 11/22/2020 21:29:05 11/20/19 21 11/19/2020 RPR SCREE N/REF RENETTA TITER /FTA RPR screen Nonrea ctive nonrea ctive Not Available [facility] (Lab) [address], [place], [address], 11/22/2020 21:29:05 11/20/19 21 11/19/2020 HIV 1/2 ANTIG EN/AN TIBOD Y, REFLE X CONFI RMATI ON HIV Ag-Ab total quant 0.05 idx <1.00 Not Available [facility] (Lab) [address] [place], [address], 11/22/2020 21:29:06 11/20/19 21 11/19/2020 HIV 1/2 ANTIG EN/AN TIBOD Y, REFLE X CONFI RMATI ON HIV Ag-Ab total Non-re active non-re active Not Available [facility] (Lab) [address] [place], [address], 11/22/2020 21:29:06 11/20/19 21 11/19/2020 HIV 1/2 ANTIG EN/AN TIBOD Y, REFLE X CONFI RMATI ON HIV-1 antibody quant 0.05 idx <1.00 Not Available [facility] (Lab) [address] [place], [address], 11/22/2020 21:29:06 11/20/19 21 11/19/2020 HIV 1/2 ANTIG EN/AN TIBOD Y, REFLE X CONFI RMATI ON HIV-1 antibody Non-re active non-re active Not Available [facility] (Lab) [address] [place], [address], 11/22/2020 21:29:06 11/20/19 21 11/19/2020 HIV 1/2 ANTIG EN/AN TIBOD Y, REFLE X CONFI RMATI ON HIV-1 antigen (P24) quant 0.05 idx <1.00 Not Available [facility] (Lab) [address] [place], [address], 11/22/2020 21:29:06 11/20/19 21 11/19/2020 HIV 1/2 ANTIG EN/AN TIBOD Y, REFLE X CONFI RMATI ON HIV-1 antigen (P24) Non-re active non-re active Not Available [facility] (Lab) [address] [place], [address], 11/22/2020 21:29:06 11/20/19 21 11/19/2020 HIV 1/2 ANTIG EN/AN TIBOD Y, REFLE X CONFI RMATI ON HIV-2 antibody quant 0.04 idx <1.00 Not Available [facility] (Lab) [address] [place], [address], 11/22/2020 21:29:06 11/20/19 21 11/19/2020 HIV 1/2 [...] on will be perfo rmed by the [employer] HIV 1/2 Suppl ement al Assay . The perfo rmanc e of this assay has not been estab lishe d for neona kelly and the assay shoul d not be used in indiv idual s young er than 2 years of age. Not Available [facility] (Lab) [address] [place], [address], 11/22/2020 21:29:06 11/20/19 21 11/19/2020 HEPAT ITIS B CORE, IGM hepatitis B core IgM antibody Negati ve negati ve Not Available [facility] (Lab) [address] [place], [address], 11/22/2020 21:29:06 11/20/19 21 11/19/2020 IMAGE GUIDE D PAP AND HPV REGAR DLESS image guided Pap, HPV regardless of Pap result SEE RESULT S BELOW abnormal CASE REPOR T: Cytol ogy Gynec ologi mark Repor t Case: [id number] Autho rochelle g Provi beverley: Merna Joel NP Colle cted: 11/19 1118 Order ing Locat ion: [place] Patho logy Recei tanner: 11/22 0629 First Scree n: Nomaia perera, Rupal ed, CT Patho logis t: Florina pennington , Marline Wan MD Speci men: Scree justus Pap - Image d, Cervi x STATE MENT OF ADEQU ACY: Satis facto ry for evalu ation Trans forma tion zone compo nent prese nt FINAL DIAGN OSIS: Epith elial Cell Abnor malit y, Squam ous Cell: Atypi mark squam ous cells of undet ermin ed cheikh grande. Donato cinthia reinosojoshua lee by Marline Ludwig MD on 2020 at [...] Thinp rep Imagi ng Syste m. CLINI MARK INFOR MATIO N: Menst rual Statu s: LMP (if appli cable ): 018 Clini mark Histo ry/Pr eviou s Pap: Type of Neopl magda (if appli cable ): Other Histo ry: Hormo tex (if appli cable ): ELOISA MOLINA FOLLO W-UP: Follo w up as warra nted, based on curre nt guide lines and indiv idual patie nt consi derat ions. Not Available [facility] (Lab) [address], [place], [address], 11/23/2020 14:46:52 11/20/19 21 11/19/2020 TRICH OMONA S VAGIN NELLY (RRNA ) trichomonas vaginalis ribosomal RNA (rrna) Negati ve negati ve Not Available [facility] (Lab) [address], [place], [address], 11/23/2020 14:46:52 11/20/19 21 11/19/2020 CT/GC (AVERY) , THINP REP VIAL chlamydia trachomatis, PCR Negati ve negati ve Not Available [facility] (Lab) [address], [place], [address], 11/23/2020 14:46:53 11/20/19 21 11/19/2020 CT/GC (AVERY) , THINP REP VIAL neisseria gonorrhoeae, PCR Negati ve negati ve Not Available [facility] (Lab) [address], [place], [address], 11/23/2020 14:46:53 07/20/19 24 07/20/2023 pregn airam test, urine HCG negati ve Not Available [place] [address], [place], [address], 07/20/2023 11:45:05 08/24/19 24 08/24/2023 IMAGE GUIDE D PAP AND HPV REGAR DLESS image guided Pap, HPV regardless of Pap result SEE RESULT S BELOW CASE REPOR T: Cytol ogy Gynec ologi mark Repor t Case: [id number] Autho rochelle g Provi beverley: Anuradha Baker, YANNICK Colle cted: 08/23 1036 Order ing Locat ion: [place] Patho logy Recei tanner: 08/26 0702 First Scree n: Marni ni, Moham ed, CT Rescr een: Marissa Edwards Speci men: Scree justus Pap - Image d, Cervi x STATE MENT OF ADEQU ACY: Satis facto ry for evalu ation Trans forma tion zone compo nent absen t The absen ce of an endoc ervic al compo nent was confi rmed by an addit parth jean baptiste ner. FINAL DIAGN OSIS: Negat jose for Intra [...] Thinp rep Imagi ng Syste m. CLINI MARK INFOR MATIO N: Menst rual Statu s: LMP (if appli cable ): Clini mark Histo ry/Pr eviou s Pap: Type of Neopl magda (if appli cable ): Signi fican t Clini mark Findi ngs: Other Histo ry: Hormo tex [...] ng do not corre late with physi mark and/o r histo rical findi ngs, [facility] inves tigat ion is recom claudia d, as clini gabrielle castañeda nted. Not Available [facility] (Lab) [address], [place], [address], 08/28/2023 15:22:01 12/17/19 25 12/16/2024 IMAGE GUIDE D PAP AND HPV REGAR DLESS image guided Pap, HPV regardless of Pap result SEE RESULT S BELOW CASE REPOR T: Cytol ogy Gynec ologi mark Repor t Case: [id number] Autho rochelle moffett Provi beverley: Anuradha Baker NP Colle cted: 12/16 1524 Order ing Locat ion: [place] Patho logjoshua Recei tanner: 12/17 0955 First Scree n: Raghu Clancy am, CT Speci men: Adelina jerome Pap - Image d, Cervi x STATE MENT OF ADEQU ACY: Satis facto ry for evalu ation Trans forma tion zone compo nent absen t ----- ----- ----- ----- ----- ----- ----- ----- ----- ----- ----- ----- ----- ----- ----- ----- ----- ---- FINAL DIAGN OSIS: Negat jose for Intra epith elial Duane dukes or Pete brush ([facility]) . Donato lee by Raghu Clancy am, CT on 2024 at 0829 CDT ----- ----- ----- ----- ----- ----- ----- [...] Thinp rep Imagi ng Syste m. CLINI MARK INFOR MATIO N: Menst rual Statu s: LMP (if appli cable ): Clini mark Histo ry/Pr eviou s Pap: Type of Neopl magda (if appli cable ): Signi fican t Clini mark Findi ngs: Other Histo ry: Hormo tex [...] ng do not corre late with physi mark and/o r histo rical findi ngs, furth er inves tigat ion is recom claudia d, as clini gabrielle castañeda nted. Not Available [facility] (Lab) [address], [place], [address], 12/18/2024 09:34:55 Result Notes None recorded. Procedures Surgical History Date Name Laterality Status Provider Name and Address Organization Details Recorded Time 024 Date of Last Pap Smear completed Amy Toney [facility] 12/16/2024 11:52:55 024 IUD Removal completed EMMIE Orellana [address], [place], [address], [facility] 07/20/2023 11:59:19 02/23/2 024 IUD Insertion completed EMMIE Orellana [address], [place], [address], [facility] 07/20/2023 11:59:07 019 completed [facility] 11/18/2020 16:32:19 015 Dilation and Curettage completed [facility] 12/16/2024 11:51:29 [address] [facility] 10/14/2019 09:51:[address] [facility] 10/14/2019 09:50:25 012 Caesarean Section completed [facility] 12/16/2024 11:51:29 009 procedure on radius completed [facility] 10/14/2019 09:50:53 003 termination of completed [facility] 01/19/2022 18:15:01 000 Colposcopy completed [facility] 11/18/2020 16:34:11 000 Colposcopy completed [facility] 11/18/2020 16:34:46 000 LEEP completed [facility] 11/25/2020 11:46:20 Colposcopy completed [facility] 08/24/2023 09:49:10 LEEP completed [facility] 08/24/2023 09:49:10 Cholecystectomy completed Amy Toney [facility] 12/16/2024 11:51:29 Imaging Results None recorded. Procedure Notes None recorded. Medical Equipment None Reported. Allergies Allergen ID Allergen Name Allergen Category Reaction Reaction Severity Criticality Documentation Date Start Date Code Code System Note Provider Name and Address Organization Details Recorded Time 647 Product containin g penicilli n (product) medicatio n Not available Not available Not available 10/14/2019 48313 8001 SNOMED Alicia Kerns chelo, [facility] 0 09:45:40 Medications Name Sig Start [...] mg tablet TAKE 1 TABLET BY MOUTH AT BEDTIME NEEDED FOR INSOMNIA active Not Available Not Available No t Available azithromyci n 250 mg tablet TAKE 2 TABLETS BY MOUTH FOR 1 DAY THEN TAKE 1 TABLET BY MOUTH DAILY FOR 4 DAYS 12/04 completed Not Available Not Available Not Available fluconazole 150 mg tablet TAKE 1 TABLET BY MOUTH A SINGLE DOSE DIRECTED 12/16 completed Not Available Not Available Not Available hydrocodone 5 mg-acetamin ophen 325 mg tablet TAKE 1 TABLET BY MOUTH EVERY 6 HOURS NEEDED FOR PAIN 11/19 completed Not Available Not Available Not Available senna 8.6 mg tablet TAKE 1 TABLET BY MOUTH TWICE DAILY NEEDED FOR CONSTIPAT ION 11/19 completed Not Available Not Available Not Available prednisone 20 mg tablet 40 MG (2 X 20 MG) ORALLY DAILY FOR 5 DAYS active Not Available Not Available No t Available sertraline 100 mg tablet 11/19 completed Not Available Not Available Not Available metronidazo le 500 mg tablet TAKE 1 TABLET BY MOUTH THREE TIMES DAILY FOR 10 DAYS 12/04 completed Not Available Not Available Not Available acetaminoph en 300 mg-codeine 30 mg tablet 10/13 completed Not Available Not Available Not Available ciprofloxac in 500 mg tablet TAKE 1 TABLET BY MOUTH TWICE DAILY FOR 10 DAYS 12/04 completed Not Available Not Available Not Available [...] completed Not Available Not Available Not Available propranolol 10 mg tablet TAKE 1 TABLET BY MOUTH THREE TIMES DAILY active Not Available Not Available No t Available amitriptyli ne 10 mg tablet TK 2 TS PO QHS 11/19 completed Not Available Not Available Not Available benzonatate 100 mg capsule 11/19 completed Not Available Not Available Not Available doxycycline monohydrate 100 mg capsule 100 MG ORALLY TWICE A DAY FOR 7 DAYS 12/16 completed Not Available Not Available Not Available [...] tablet TAKE 1 TABLET BY MOUTH DAILY NEEDED FOR ANXIETY 12/16 completed Not Available Not Available Not Available azelastine 137 mcg (0.1 %) nasal spray USE 1 SPRAY IN EACH NOSTRIL EVERY 12 HOURS 12/16 completed Not Available Not Available Not Available levofloxaci n 500 mg tablet TAKE 1 TABLET BY MOUTH DAILY FOR 7 DAYS 01/20 completed Not Available Not Available Not Available levofloxaci n 750 mg tablet TAKE 1 TABLET BY MOUTH DAILY FOR 10 DAYS 12/04 completed Not Available Not Available Not Available methylpredn isolone 4 mg tablets in a dose pack FOLLOW PACKAGE DIRECTION S 12/16 completed Not Available Not Available Not Available [...] completed Not Available Not Available Not Available azithromyci n 500 mg tablet TAKE ONE TABLET BY MOUTH DAILY X 5 DAYS 12/04 completed Not Available Not Available Not Available [...] completed Not Available Not Available Not Available escitalopra m 5 mg tablet TAKE 1 TABLET BY MOUTH DAILY 12/16 completed Not Available Not Available Not Available [...] Available Not Available Vitals Date Recorded Body weight Systolic And Diastolic Provider Name and Address Organization Details Last Updated DateTime 07/20/2023 658433.83 g 135/86 mm[Hg] [facility] 07/20/2023 11:14:02 Date Recorded Body weight Systolic And Diastolic Provider Name and Address Organization Details Last Updated DateTime 08/24/2023 501798.05 g 136/86 mm[Hg] Jessica [facility] 08/24/2023 09:48:58 Date Recorded Body height Body mass index (BMI) Body weight Systolic And Diastolic Provider Name and Address Organization Details Last Updated DateTime 11/19/2020 175.26 cm 41.6 kg/m2 705900.05 g 131/88 mm[Hg] Olga Souza [facility] 11/19/2020 09:57:58 Date Recorded Body height Body mass index (BMI) Body weight Systolic And Diastolic Provider Name and Address Organization Details Last Updated DateTime 12/16/2024 175.26 cm 43.6 kg/m2 335766.75 g 121/82 mm[Hg] Amy Toney [facility] 12/16/2024 11:51:13 Date Recorded Body height Body mass index (BMI) Body weight Systolic And Diastolic Provider Name and Address Organization Details Last Updated DateTime 01/20/2022 175.26 cm 41.8 kg/m2 774225.64 g 132/84 mm[Hg] Olga Souza [facility] 01/20/2022 10:19:55 Social History Question Answer Notes LastModified by Organizat ion Details LastModified Time Tobacco Smoking Status Current Every Day Smoker smoking for 15 years Venessa whitney [facility] 01/20/2022 10:12:26 Do You Have An Advance Directive? No [email or web address] Information not available 11/19/2020 How Many Years Have You Consumed Alcohol? 10 [email or web address] Information not available 11/19/2020 Are You Blind Or Do You Have Difficulty Seeing? No [email or web address] Information not available 11/19/2020 What Is Your Level Of Caffeine Consumption? Occasional [email or web address] Information not available 11/19/2020 How Much Tobacco Do You Chew? None [email or web address] Information not available 11/19/2020 In The 14 Days Before Symptom Onset, Have You Had Close Contact With A Laboratory-confir med COVID-19 While That Case Was Ill? No [email or web address] Information not available 11/19/2020 In The 14 Days Before Symptom Onset, Have You Had Close Contact With A Person Who Is Under Investigation For COVID-19 While That Person Was Ill? No [email or web address] Information not available 11/19/2020 Have You Been To An Area Known To Be High Risk For COVID-19? No [email or web address] Information not available 11/19/2020 Are You Deaf Or Do You Have Serious Difficulty Hearing? No [email or web address] Information not available 11/19/2020 What Type Of Diet Are You Following? REGULAR [email or web address] Information not available 11/19/2020 What Is The Highest Grade Or Level Of School You Have Completed Or The Highest Degree You Have Received? AD14400-1 [email or web address] Information not available 11/19/2020 Are There Any Guns Present In Your Home? No [email or web address] Information not available 11/19/2020 Do You Use Protection During Sex? No [email or web address] Information not available 11/19/2020 Do You Use Your Seat Belt Or Car Seat Routinely? Yes [email or web address] Information not available 11/19/2020 Do You Have Smoke And Carbon Monoxide Detectors In Your Home? Yes Information not available 11/19/2020 At What Age Did You Start Smoking Tobacco? 15 [email or web address] Information not available 11/19/2020 How Much Tobacco Do You Smoke? 0.5 PPD Information not available 10/14/2019 Do You Use Sunscreen Routinely? Yes Information not available 11/19/2020 Have You Used IV Drugs? No [email or web address] Information not available 11/19/2020 Do You Have Difficulty Walking Or Climbing Stairs? No [email or web address] Information not available 01/20/2022 Sex: Unknown Functional Status Question Answer Note LastModified by Organizat ion Details LastModified Time Do you use any illicit or recreational drugs? No [email or web address] Information not available 11/19/2020 What is your level of alcohol consumption? None [email or web address] Information not available 11/19/2020 Are you able to walk independently without assistance or assistive devices? YESWOREST [email or web address] Information not available 11/19/2020 Are you able to care for yourself independently? Yes [email or web address] Information not available 01/20/2022 What is your occupation? [employer] [email or web address] Information not available 11/19/2020 Do you have difficulty dressing, bathing, grooming, or toileting? No [email or web address] Information not available 01/20/2022 What is your exercise level? Moderate 2x's a week Information not available 10/14/2019 Mental Status Question Answer Note LastModified by Organization D etails LastModified Time Do you feel stressed (tense, restless, nervous, or anxious, or unable to sleep at night)? [id number] Information not available 11/19/2020 Family History Relationship Description Onset Age of this Age Resolved Age Notes LastModified by Organization Details LastModified Time Maternal Grandmother Anemia [email or web address] Not available 2019 09:59:46 Maternal Grandmother Diabetes mellitus [email or web address] Not available 2019 10:00:36 Maternal Grandmother Hypertensive disorder [email or web address] Not available 2019 10:01:15 Maternal Grandmother Psychotic disorder [email or web address] Not available 2024 11:51:29 Paternal Grandmother Anemia [email or web address] Not available 2019 09:59:46 Paternal Grandmother Diabetes mellitus [email or web address] Not available 2019 10:00:36 Paternal Grandmother Hypertensive disorder [email or web address] Not available 2019 10:01:15 Paternal Grandmother Psychotic disorder [email or web address] Not available 2024 11:51:29 Father Heart disease [email or web address] Not available 2019 09:59:57 Father Hypercholest erolemia [email or web address] Not available 2019 10:00:49 Father Hypertensive disorder [email or web address] Not available 2019 10:01:15 Paternal Aunt Family history of cancer of colon Not available 2024 11:51:29 Paternal Aunt Psychotic disorder [email or web address] Not available 2024 11:51:29 Maternal Aunt Family history of cancer of colon [email or web address] Not available 2024 11:51:29 Maternal Aunt Psychotic disorder [email or web address] Not available 2024 11:51:29 Mother Diabetes mellitus [email or web address] Not available 2019 10:00:36 Mother Hypertensive disorder [email or web address] Not available 2019 10:01:15 Mother Psychotic disorder [email or web address] Not available 2024 11:51:29 Mother Depressive disorder Not available 2024 11:51:29 Mother Malignant neoplasm of ovary [email or web address] Not available 2024 11:51:29 Brother Diabetes mellitus [email or web address] Not available 2019 10:00:36 Brother Hypertensive disorder [email or web address] Not available 2019 10:01:15 Brother Depressive disorder [email or web address] Not available 2024 11:51:29 Sister Hypertensive disorder [email or web address] Not available 2019 10:01:15 Maternal Uncle Psychotic disorder [email or web address] Not available 2024 11:51:29 Paternal Uncle Psychotic disorder [email or web address] Not available 2024 11:51:29 Medical History Condition Response Allergies (Food, seasonal, [...] Problems N Thyroid Problems N GI Problems Y Eating Disorder N Anemia N Art (IVF [...] Gynecological History Statement/Question Response Date of LMP 05/28/2023 N STIs/STDs Y Date of control 09/26/2015 Date of Last Colonoscopy IUD Desired Control Method IUD Abnormal Pap Yes On BCP's at Conception? N HPV Vaccine N Colposcopy 05/28/1999 Current Control Method IUD 12 Age at First Child 26 Sexually Active? Y Menses Monthly N Age of first menstrual cycle 11 Date of Last Pap Smear 08/24/2023 Sexual Problems? 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 Steady partner. [place] [id number] Merna Dial [facility] [address],[place] [address] 11/19/2020 09:17:25 11/19/2020 10:29:11 Gynecologic examination 39990131 Z01.419 [id number] Merna Dial [facility] [address] [address] 01/20/2022 10:12:13 01/20/2022 10:38:08 Gynecologic examination 26156889 Z11.51 Z11.3 [id number] EMMIE Orellana [place] [address],[place] [address] 07/20/2023 10:58:15 07/20/2023 12:08:28 Insertion of intrauterine contraceptive device 22525602 Z30.430 Detailed health hx updated and reviewed [...] verbalized understand ing. Contracept ion care management 853048111 Z30.9 Removal of intrauterine contraceptive device 1875489177 Z30.432 [id number] EMMIE Orellana [facility] [address] [address] 08/24/2023 09:45:24 08/24/2023 10:18:38 Gynecologic examination 29887019 Z01.419 WWEBC - mirena IUD, inserted 07/20/2023 [...] paper copy of today's plan if desired./ [id number] EMMIE Orellana [facility] [address] [address] 12/16/2024 11:28:53 12/17/2024 12:34:57 Gynecologic examination 53658455 Z01.499 [id number] WWEBC - Mirena IUD (inserted 07/20/2023 and will 07/20/2031) Pap - done todaySTI screen - declinedMa mmogram - has scheduled/ [facility] U[facility]/PCPRTC in 1 yr or sooner if needed Suggested Calcium with Vitamin D daily. Patient advised to get an annual flu shot in the fall and she could obtain at local pharmacy. Also to obtain TDap vaccinatio n if you have not had one in the last 10 years. Recommend yearly mammograms . Encouraged monthly self breast exams. Encourage safe sexual practices, to use condoms and limit partners if not already in a monogamous relationsh ip. Engage in regular exercise. Avoid tobacco and illicit drugs. This lifestyle behavior pattern will lead to less health conditions and longer life span. If BMI greater than 25 dietary consult advised. All questions have been answered. Cyst of ovary 09000075 N 83.209 [id number] pelvic u/s ordered for further assessment of ovarian cyst seen on recent CT scandiscus sed genetic testing options d/t fam hx, order can be placed at anytime if desired Health Concerns Section Related Observation LastModified by Organization Detai ls LastModified Time None Recorded Concern Status LastModified by Organization Details LastModified Time None Recorded Advance Directives Directive N: Payers Insurance Date Sequence Insurance Name Policy Number Policy Koroma Covered Member ID Koroma Member ID Guarantor Name 12/19/2024 1 [facility] (MEDICAID HMO) [id number] Nora Forgy [id number] Nora Forgy Notes Date Note Type Note Provider Name and Address Organization Details Recorded Time 11/20/19 21 text/ht ml Annual GYNReported by PatientGenitourinary symptomsFor menstrual cycle, patient reportsnormal menses. For urinary symptoms, patient reportsno hematuriaandno incontinence. For vulva, patient reportsno genital lesion. For vagina, patient reportsnormal vaginal discharge.Breast symptomsFor breast, patient reportsno breast pain,no breast lump, andno nipple discharge.Endocrine symptomsFor sexual complaints, patient reportsno sexual complaints,no pain during intercourse, andnormal libido. 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 11/19/2020 10:29:05 01/21/20 22 text/ht ml Annual GYNReported by PatientGenitourinary symptomsFor menstrual cycle, patient reportsnormal menses. For urinary symptoms, patient reportsno hematuriaandno incontinence. For vulva, patient reportsno genital lesion. For vagina, patient reportsnormal vaginal discharge.Breast symptomsFor breast, patient reportsno breast pain,no breast lump, andno nipple discharge.ContraceptionFor current contraception, patient reportssatisfied with current contraceptionandintrauterine device (iud).Endocrine symptomsFor sexual complaints, patient reportsno sexual complaints,no pain during intercourse, andnormal libido. For menopausal symptoms, patient reportsno menopausal symptomsandnormal vaginal lubrication.Psychological symptomsFor psychological symptoms, patient reportsno depression,no anxiety, andno pmdd.Preventative measuresFor preventive measures, patient reportsencourage self breast examination,encourage regular exercise, andencourage no tobacco use.some mild cramping monthlyROS as noted in the [facility] Merna Dial CNM [address], [place], [address], [facility] 01/20/2022 10:35:39 07/20/19 24 text/ht ml Patient presents for IUD removal/insertion.current Mirena IUD inserted 11/2015, will 11/2023 EMMIE Orellana [address], [place], [address], [facility] 07/20/2023 12:09:56 08/24/19 24 text/ht ml Annual GYNReported by PatientGenitourinary symptomsFor menstrual cycle, patient reportsnormal menses. For urinary symptoms, patient reportsno hematuriaandno incontinence. For vulva, patient reportsno genital lesion. For vagina, patient reportsnormal vaginal discharge.Breast symptomsFor breast, patient reportsno breast pain,no breast lump, andno nipple discharge.ContraceptionFor current contraception, patient reportssatisfied with current contraceptionandintrauterine device (iud).Endocrine symptomsFor sexual complaints, patient reportsno sexual complaints,no pain during intercourse, andnormal libido. For menopausal symptoms, patient reportsno menopausal symptomsandnormal vaginal lubrication.Psychological symptomsFor psychological symptoms, patient reportsno depression,no anxiety, andno pmdd.Preventative measuresFor preventive measures, patient reportsencourage self breast examination,encourage regular exercise,encourage no tobacco use, andencourage regular mammograms starting age 40.WWEh/o LEEP in 1999last paps 2019 - normal10/2020 - ascus, HPV (-) mirena IUD, inserted 07/20/2023 - doing well, no issues EMMIE Orellana [address], [place], [address], [place] [facility] 08/24/2023 10:16:46 12/17/19 25 text/ht ml Annual GYNReported by PatientGenitourinary symptomsFor menstrual cycle, patient reportsnormal menses. For urinary symptoms, patient reportsno hematuriaandno incontinence. For vulva, patient reportsno genital lesion. For vagina, patient reportsnormal vaginal discharge.Breast symptomsFor breast, patient reportsno breast pain,no breast lump, andno nipple discharge.ContraceptionFor current contraception, patient reportssatisfied with current contraceptionandintrauterine device (iud).Endocrine symptomsFor sexual complaints, patient reportsno sexual complaints,no pain during intercourse, andnormal libido. For menopausal symptoms, patient reportsno menopausal symptomsandnormal vaginal lubrication.Psychological symptomsFor psychological symptoms, patient reportsno depression,no anxiety, andno pmdd.Preventative measuresFor preventive measures, patient reportsencourage self breast examination,encourage regular exercise,encourage no tobacco use, andencourage regular mammograms starting age [age]yo [facility] - Mirena IUD, inserted 07/20/2023last pap 07/2023 : nilm, HPV (-)h/o LEEP in [address] scan (d/t diverticulitis) recently that showed ovarian cyst. Unsure size. No current symptoms.Her mother recently passed, diagnosed with ovarian CA age 58h/o colon CA paternal and maternal auntunsure if any family members have had genetic testing EMMIE Orellana [address], [place], [address], [facility] 12/17/2024 11:51:23 OBGyn Episode Ob Episode Information Episode Created Date Number of Fetuses Patient Bloodtype Patient rh Status Prepregnancy Weight lbs Domestic Partner Domestic Partner Phone Father Name Gas Plumbing Inspector Status 10/14/19 1 CLOSED Fetus Data First Name Last [...] Domestic Partner Domestic Partner Phone Father Name Gas Plumbing Inspector Status 10/14/19 20 1 CLOSED Fetus Data [...] Domestic Partner Domestic Partner Phone Father Name Gas Plumbing Inspector Status 10/14/19 20 1 CLOSED Fetus Data [...] Domestic Partner Domestic Partner Phone Father Name Gas Plumbing Inspector Status 10/14/19 20 1 CLOSED Fetus Data [...] Domestic Partner Domestic Partner Phone Father Name Gas Plumbing Inspector Status 10/14/19 20 1 CLOSED Fetus Data [...]
--- OUTSIDE RECORDS SUMMARY | 2025-04-29 16:05 | XMS_ITS | Clinical Summary ---
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
== END 2025-04-29 14:43 | disposition home or self-care (01) ==
LOC: ANHFOHIMG 14:44
PROVIDERS: PCP Family Medicine; Visit Provider Student in an Organized Health Care Education/Training Program
DX: Z12.31 Encounter for screening mammogram for malignant neoplasm of breast (principal)
CPT/HCPCS: 77063; 77067

== ENCOUNTER 2025-05-09 08:06 | Emergency (ER) | payer OTHER, SELFPAY ==
--- OUTSIDE RECORDS SUMMARY | 2025-05-09 08:08 | XMS_ITS | Data Portability ---
Author Organization [facility] Address [address] [place] [address] Care Team Providers Care Bullet Lubricant Mixer Name Role Phone BIJU ZARAGOZA Primary Care Provider Assessment No assessment recorded. Plan of Treatment Reminders Order Date Submit Date Provider Last Modified By Organization Details Last Modified Time Details Appointments None recorded. Lab TSH, ultra-sens itive, serum 2017 018 [facility], [address] [place] [address], [address], [place], [address], 8 14:22:15 HbA1c (hemoglobi n A1c), blood 2017 018 [facility], [facility] [address], [address], [place], [address], 8 14:22:15 CMP, serum or plasma 2017 018 [facility], [facility] [address], [address], [place], [address], 8 14:22:14 lipid panel, serum 2017 018 [facility], [facility] [address], [address], [place], [address], 8 14:22:15 CBC 2017 018 [facility], [address] [facility], [address], [place], [address], 8 14:22:13 Referral None recorded. Procedures None recorded. Surgeries None recorded. Imaging None recorded. Medication Orders Wellbutrin SR 150 mg tablet, 12 hr sustained- release [address] [facility], [address] [place] [address], [address], 8 14:22:09 Patient TargetsNo targets recorded. Patient Instructions Encounter Date Encounter Id Patient Instructions Last Modified By Organization Details Last Modified Time 09/14/2017 [id number] eating healthy foods: care instructions nsuthan Not [...] Details Recorded Time Cholecystectomy completed [place] [facility] 09/14/2017 13:43:34 Caesarean Section completed [facility] [place] - [facility] 09/14/2017 13:43:39 Dilation and Curettage completed [place] [facility] 09/14/2017 13:43:43 LEEP completed [place] [facility] 09/14/2017 13:43:49 Imaging Results None recorded. Procedure Notes None recorded. Medical Equipment None Reported. Allergies Allergen ID Allergen Name Allergen Category Reaction Reaction Severity Criticality Documentation Date Start Date Code Code System Note Provider Name and Address Organization Details Recorded Time 875074 Product containin g penicilli n (product) medicatio n rash Not available Not available 09/14/2017 99724 8001 SNOMED [place] [facility] [...] rate Respiratory rate Body temperature Oxygen saturation Systolic And Diastolic Provider Name and Address Organization Details Last Updated DateTime 8 175.26 cm 41.2 kg/m2 682746. 63 g 116 /min 16 /min 98.7 [degF] 98 % 128/78 mm[Hg] Kelley steve MA [facility] 8 14:00:06 Social History Question Answer Notes LastModified by Organizat ion Details LastModified Time Tobacco Smoking Status Current Every Day Smoker Kelley Nuñez MA null, [place] - [facility] 09/14/2017 13:47:07 What Is Your Level Of Caffeine Consumption? [...] Yr Of School Information not available 09/14/2017 Hard Of Hearing Or Deaf In One Or Both Ears? No Information not available 09/14/2017 Marital Status Single Infor mation not available 09/14/2017 What Was The Date Of Your Most Recent Tobacco Screening? 09/14/2017 Information n ot available 12/19/2018 Performs Monthly Self-breast Exam? No Information not available 09/14/2017 Seat Belts Used Routinely Yes [email or web address] Information not available 09/14/2017 Smoke Alarm In Home Yes Information not available 09/14/2017 How Much Tobacco Do You Smoke? 0.5 PPD [email or web address] Information not available 09/14/2017 General Stress Level High [email or web address] Information not available 09/14/2017 How Many Years Have You Smoked Tobacco? 15 Information not available 09/14/2017 Sex: Unknown Functional Status Question Answer Note LastModified by Organizat ion Details LastModified Time What is your level of alcohol consumption? 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 Occasional Information not available 09/14/2017 Mental Status None recorded. Family History Relationship Description Onset Age of this Age Resolved Age Notes LastModified by Organization Details LastModified Time Mother Depressive disorder aguilathomjasvir ma Not available 09/14/2017 13:46:25 Mother Diabetes mellitus jalendayanna ma Not available 09/14/2017 13:46:31 Sister Depressive disorder aguilalay ma Not available 09/14/2017 13:46:25 Brother Depressive disorder aguilalay ma Not available 09/14/2017 13:46:25 Father Heart disease jalendayanna ma Not available 09/14/2017 13:46:39 Father Hypertensive [...] ICD10 Code Diagnosis IMO Codes Diagnosis Note [id number] MD Brannon Upton (Adult Med) [address] [place] [address] 09/14/2017 13:32:22 09/14/2017 15:33:22 Adult health examination 373950466 Z00.00 healthy diet and exercise discussed with pt Obesity 444962187 E66.9 Smoker 96139196 F17.200 Health Concerns Section Related Observation LastModified by Organization Detai ls LastModified Time None Recorded Concern Status LastModified by Organization Details LastModified Time None Recorded Advance Directives Directive None Recorded Payers Insurance Date Sequence Insurance Name Policy Number Policy Koroma Covered Member ID Koroma Member ID Guarantor Name 09/03/2017 1 [place] [facility] Nora Forgy [id number] Nora Forgy 08/11/2024 1 [facility] (MEDICAID HMO) [id number] Nora Forgy [id number] Nora Forgy Notes Date Note Type Note Provider Name and Address Organization Details Recorded Time 09/14/2017 text/html pt is here to establish pcp. Denied any complaints. Pt is willing to quit smoking , tried wellbutrin in the past with success. Biju Zaragoza MD Attn: Accounting,[address] [place], [address], [facility] 09/14/2017 14:32:54 OBGyn Episode No OBEpisode recorded.
--- OUTSIDE RECORDS SUMMARY | 2025-05-09 08:08 | XMS_ITS | Data Portability ---
Author Organization [facility] Address [address] [place] [address] Care Team Providers Care Senior Project Architect Name Role Phone NELSY GROVER Primary Care [...] a year unless there are new symptoms. [email or web address] Not available 12/16/2024 11:44:18 Plan of Treatment Reminders Order Date Submit Date Provider Last Modified By Organization Details Last Modified Time Details Appointments None recorded. Lab pap, IG + HR HPV - HPV regardless but if HPV is positive need subtyping 16,18/[address] [facility] (Lab), [address], [place], [address], 5 09:34:55 test, urine 2023 024 [email or web address] [place], [facility] [address], [address], [place], [address], 11:45:28 Referral None recorded. Procedures None recorded. [...] used inter laguna eably . Not Available [facility] (Lab) [address], [place], [address], 11/22/2020 21:29:04 11/20/19 21 11/19/2020 HEPAT ITIS B SURFA CE ANTIG EN hepatitis B surface antigen Non-re active non-re active This assay was perfo rmed using [employer] ratio n reage nts and test kits. Value s obtai joanie with other assay metho ds or kits canno t be used inter laguna eably . Not Available [facility] (Lab) [address] [facility], [place], [address], 11/22/2020 21:29:05 11/20/19 21 11/19/2020 RPR SCREE N/REF RENETTA TITER /FTA RPR screen Nonrea ctive nonrea ctive Not Available [facility] (Lab) [address] [facility], [place], [address], 11/22/2020 21:29:05 11/20/19 21 11/19/2020 HIV 1/2 ANTIG EN/AN TIBOD Y, REFLE X CONFI RMATI ON HIV Ag-Ab total quant 0.05 idx <1.00 Not Available [facility] (Lab) [address] [place], [address], 11/22/2020 21:29:06 11/20/19 21 11/19/2020 HIV 1/2 ANTIG EN/AN TIBOD Y, REFLE X CONFI RMATI ON HIV Ag-Ab total Non-re active non-re active Not Available [facility] (Lab) [address] [place], [address], 11/22/2020 21:29:06 11/20/19 21 11/19/2020 HIV 1/2 ANTIG EN/AN TIBOD Y, REFLE X CONFI RMATI ON HIV-1 antibody quant 0.05 idx <1.00 Not Available [facility] (Lab) [address] [place], [address], 11/22/2020 21:29:06 11/20/19 21 11/19/2020 HIV 1/2 ANTIG EN/AN TIBOD Y, REFLE X CONFI RMATI ON HIV-1 antibody Non-re active non-re active Not Available [facility] (Lab) [address] [place], [address], 11/22/2020 21:29:06 11/20/19 21 11/19/2020 HIV 1/2 ANTIG EN/AN TIBOD Y, REFLE X CONFI RMATI ON HIV-1 antigen (P24) quant 0.05 idx <1.00 Not Available [facility] (Lab) [address] [place], [address], 11/22/2020 21:29:06 11/20/19 21 11/19/2020 HIV 1/2 ANTIG EN/AN TIBOD Y, REFLE X CONFI RMATI ON HIV-1 antigen (P24) Non-re active non-re active Not Available [facility] (Lab) [address] [place], [address], 11/22/2020 21:29:06 11/20/19 21 11/19/2020 HIV 1/2 ANTIG EN/AN TIBOD Y, REFLE X CONFI RMATI ON HIV-2 antibody quant 0.04 idx <1.00 Not Available [facility] (Lab) [address] [place], [address], 11/22/2020 21:29:06 11/20/19 21 11/19/2020 HIV 1/2 [...] on will be perfo rmed by the [employer] HIV 1/2 Suppl ement al Assay . The perfo rmanc e of this assay has not been estab lishe d for neona kelly and the assay shoul d not be used in indiv idual s young er than 2 years of age. Not Available [facility] (Lab) [address] [place], [address], 11/22/2020 21:29:06 11/20/19 21 11/19/2020 HEPAT ITIS B CORE, IGM hepatitis B core IgM antibody Negati ve negati ve Not Available [facility] (Lab) [address] [place], [address], 11/22/2020 21:29:06 11/20/19 21 11/19/2020 IMAGE GUIDE [...] CT Patho logis t: Florina pennington , Mraline Wan MD Speci men: Scree justus Pap [...] patie nt consi derat ions. Not Available [facility] (Lab) [address], [place], [address], 11/23/2020 14:46:52 11/20/19 21 11/19/2020 TRICH OMONA S VAGIN NELLY (RRNA ) trichomonas vaginalis ribosomal RNA (rrna) Negati ve negati ve Not Available [facility] (Lab) [address], [place], [address], 11/23/2020 14:46:52 11/20/19 21 11/19/2020 CT/GC (AVERY) , THINP REP VIAL chlamydia trachomatis, PCR Negati ve negati ve Not Available [facility] (Lab) [address] [facility] [facility], [place], [address], 11/23/2020 14:46:53 11/20/19 21 11/19/2020 CT/GC (AVERY) , THINP REP VIAL neisseria gonorrhoeae, PCR Negati ve negati ve Not Available [facility] (Lab) [address] [facility] [facility] [facility], [place], [address], 11/23/2020 14:46:53 07/20/19 24 07/20/2023 pregn airam test, urine HCG negati ve Not Available [place] [address], [place], [address], 07/20/2023 11:45:05 08/24/19 24 08/24/2023 IMAGE GUIDE [...] mark and/o r histo rical findi ngs, [facility] er inves tigat ion is recom claudia d, as clini gabrielle castañeda nted. Not Available [facility] (Lab) [address] [facility] [facility], [place], [address], 08/28/2023 15:22:01 12/17/19 25 12/16/2024 IMAGE GUIDE [...] epith elial Duane dukes or Pete brush ([facility]) . Donato lee by Raghu Clancy am, [...] as clini gabrielle castañeda nted. Not Available [facility] (Lab) [address], [place], [address], 12/18/2024 09:34:55 Result Notes None recorded. Procedures Surgical History Date Name Laterality Status Provider Name and Address Organization Details Recorded Time 024 Date of Last Pap Smear completed Amy Toney [facility] 12/16/2024 11:52:55 024 IUD Removal completed EMMIE Orellana [address], [place], [address], [facility] 07/20/2023 11:59:19 02/23/2 024 IUD Insertion completed EMMIE Orellana [address], [place], [address], [facility] 07/20/2023 11:59:07 019 completed [facility] 11/18/2020 16:32:19 015 Dilation and Curettage completed [facility] 12/16/2024 11:51:29 013 cholecystectomy completed [facility] 10/14/2019 09:51:00 012 delivery completed [facility] 10/14/2019 09:50:25 012 Caesarean Section completed [facility] 12/16/2024 11:51:29 009 procedure on radius completed [facility] 10/14/2019 09:50:53 003 termination of completed [facility] 01/19/2022 18:15:01 000 Colposcopy completed [facility] 11/18/2020 16:34:11 000 Colposcopy completed [facility] 11/18/2020 16:34:46 000 LEEP completed [facility] 11/25/2020 11:46:[address] [facility] 08/24/2023 09:49:[address] [facility] 08/24/2023 09:49:10 Cholecystectomy completed Amy Toney [facility] 12/16/2024 11:51:29 Imaging Results None recorded. Procedure Notes None recorded. Medical Equipment None Reported. Allergies Allergen ID Allergen Name Allergen Category Reaction Reaction Severity Criticality Documentation Date Start Date Code Code System Note Provider Name and Address Organization Details Recorded Time 647 Product containin g penicilli n (product) medicatio n Not available Not available Not available 10/14/2019 37439 8001 SNOMED Alicia Kerns chelo, [facility] 0 09:45:40 Medications Name Sig Start [...] Address Organization Details Last Updated DateTime 07/20/2023 270686.83 g 135/86 mm[Hg] [facility] 07/20/2023 11:14:02 Date Recorded Body weight Systolic And Diastolic Provider Name and Address Organization Details Last Updated DateTime 08/24/2023 900344.05 g 136/86 mm[Hg] [facility] 08/24/2023 09:48:58 Date Recorded Body height Body mass index (BMI) Body weight Systolic And Diastolic Provider Name and Address Organization Details Last Updated DateTime 11/19/2020 175.26 cm 41.6 kg/m2 098642.05 g 131/88 mm[Hg] Olga Souza [facility] 11/19/2020 09:57:58 Date Recorded Body height Body mass index (BMI) Body weight Systolic And Diastolic Provider Name and Address Organization Details Last Updated DateTime 12/16/2024 175.26 cm 43.6 kg/m2 211438.75 g 121/82 mm[Hg] Amy Toney [facility] 12/16/2024 11:51:13 Date Recorded Body height Body mass index (BMI) Body weight Systolic And Diastolic Provider Name and Address Organization Details Last Updated DateTime 01/20/2022 175.26 cm 41.8 kg/m2 896155.64 g 132/84 mm[Hg] Olga Souza [facility] 01/20/2022 10:19:55 Social History Question Answer Notes LastModified by Organizat ion Details LastModified Time Tobacco Smoking Status Current Every Day Smoker smoking for 15 years Venessa whitney [facility] 01/20/2022 10:12:26 Do You Have An Advance Directive? No [email or web address] Information not available 11/19/2020 How Many Years Have You Consumed Alcohol? 10 [email or web address] Information not available 11/19/2020 Are You Blind Or Do You Have Difficulty Seeing? No [email or web address] Information not available 11/19/2020 What Is Your Level Of Caffeine Consumption? Occasional [email or web address] Information not available 11/19/2020 How Much Tobacco Do You Chew? None [email or web address] Information not available 11/19/2020 In The 14 Days Before Symptom Onset, Have You Had Close Contact With A Laboratory-confir med COVID-19 While That Case Was Ill? No [email or web address] Information not available 11/19/2020 In The 14 Days Before Symptom Onset, Have You Had Close Contact With A Person Who Is Under Investigation For COVID-19 While That Person Was Ill? No [email or web address] Information not available 11/19/2020 Have You Been To An Area Known To Be High Risk For COVID-19? No [email or web address] Information not available 11/19/2020 Are You Deaf Or Do You Have Serious Difficulty Hearing? No [email or web address] Information not available 11/19/2020 What Type Of Diet Are You Following? REGULAR [email or web address] Information not available 11/19/2020 What Is The Highest Grade Or Level Of School You Have Completed Or The Highest Degree You Have Received? [id number] [email or web address] Information not available 11/19/2020 Are There Any Guns Present In Your Home? No Information not available 11/19/2020 Do You Use Protection During Sex? No [email or web address] Information not available 11/19/2020 Do You Use Your Seat Belt Or Car Seat Routinely? Yes [email or web address] Information not available 11/19/2020 Do You Have Smoke And Carbon Monoxide Detectors In Your Home? Yes [email or web address] Information not available 11/19/2020 At What Age Did You Start Smoking Tobacco? 15 Information not available 11/19/2020 How Much Tobacco Do You Smoke? 0.5 PPD Information not available 10/14/2019 Do You Use Sunscreen Routinely? Yes [email or web address] Information not available 11/19/2020 Have You Used IV Drugs? No [email or web address] Information not available 11/19/2020 Do You Have Difficulty Walking Or Climbing Stairs? No [email or web address] Information not available 01/20/2022 Sex: Unknown Functional Status Question Answer Note LastModified by Organizat ion Details LastModified Time Do you use any illicit or recreational drugs? No [email or web address] Information not available 11/19/2020 What is your level of alcohol consumption? None [email or web address] Information not available 11/19/2020 Are you able to walk independently without assistance or assistive devices? YESWOREST [email or web address] Information not available 11/19/2020 Are you able to care for yourself independently? Yes [email or web address] Information not available 01/20/2022 What is your occupation? R[employer] [email or web address] Information not available 11/19/2020 Do you have difficulty dressing, bathing, grooming, or toileting? No [email or web address] Information not available 01/20/2022 What is your exercise level? Moderate 2x's a week Information not available 10/14/2019 Mental Status Question Answer Note LastModified by Organization D etails LastModified Time Do you feel stressed (tense, restless, nervous, or anxious, or unable to sleep at night)? [id number] [email or web address] Information not available 11/19/2020 Family History Relationship Description Onset Age of this Age Resolved Age Notes LastModified by Organization Details LastModified Time Maternal Grandmother Anemia [email or web address] Not available 2019 09:59:46 Maternal Grandmother Diabetes mellitus [email or web address] Not available 2019 10:00:36 Maternal Grandmother Hypertensive disorder [email or web address] Not available 2019 10:01:15 Maternal Grandmother Psychotic disorder Not available 2024 11:51:29 Paternal Grandmother Anemia [email or web address] Not available 2019 09:59:46 Paternal Grandmother Diabetes mellitus [email or web address] Not available 2019 10:00:36 Paternal Grandmother Hypertensive disorder [email or web address] Not available 2019 10:01:15 Paternal Grandmother Psychotic disorder [email or web address] Not available 2024 11:51:29 Father Heart disease [email or web address] Not available 2019 09:59:57 Father Hypercholest erolemia [email or web address] Not available 2019 10:00:49 Father Hypertensive disorder [email or web address] Not available 2019 10:01:15 Paternal Aunt Family history of cancer of colon [email or web address] Not available 2024 11:51:29 Paternal Aunt Psychotic disorder Not available 2024 11:51:29 Maternal Aunt Family history of cancer of colon [email or web address] Not available 2024 11:51:29 Maternal Aunt Psychotic disorder Not available 2024 11:51:29 Mother Diabetes mellitus [email or web address] Not available 2019 10:00:36 Mother Hypertensive disorder [email or web address] Not available 2019 10:01:15 Mother Psychotic disorder [email or web address] Not available 2024 11:51:29 Mother Depressive disorder Not available 2024 11:51:29 Mother Malignant neoplasm of ovary [email or web address] Not available 2024 11:51:29 Brother Diabetes mellitus [email or web address] Not available 2019 10:00:36 Brother Hypertensive disorder [email or web address] Not available 2019 10:01:15 Brother Depressive disorder [email or web address] Not available 2024 11:51:29 Sister Hypertensive disorder [email or web address] Not available 2019 10:01:15 Maternal Uncle Psychotic disorder [email or web address] Not available 2024 11:51:29 Paternal Uncle Psychotic disorder [email or web address] Not available 2024 11:51:29 Medical History Condition Response Allergies (Food, seasonal, environmental ) Y Other N Drug/Latex Allergies/Reactions Y Breast Cancer N Blood Transfusion N Dermatologic Disorders N Lung Disease N Defects or Inherited Disease N Breast Problem N Gestational Diabetes N Hematologic disorders N Anesthesia Complications N History of STI Y Deep Vein Thrombosis N Polycystic ovary syndrome N Anxiety Disorder Y Autoimmune disease N Arthritis N Polyps N Infertility N History of abnormal pap Y Acid Reflux (GERD) N Cancer N Varicosities N Stroke N Neurologic/Epilepsy N Endometriosis N High Cholesterol N Headaches N Fibromyalgia N Kidney Disease N Heart Problems N Thyroid Problems N Kidney or Bladder Problems N GI Problems Y Eating Disorder [...] Codes Diagnosis Note [id number] Yisel Miller , [facility] [address] [address] 10/14/2019 09:38:17 10/14/2019 10:32:04 Gynecologic examination 96063260 Z01.419 Take Calcium with Vitamin D 1200mg [...] WIll sign JIMBO for records from previous [employer]SC[employer] SPECIALIST to be sent. Steady partner. [place] [id number] [facility] [address],[place] [address] 11/19/2020 09:17:25 11/19/2020 10:29:11 Gynecologic examination 60480830 Z01.419 [id number] Merna Dial [facility] [address],[place] [address] 01/20/2022 10:12:13 01/20/2022 10:38:08 Gynecologic examination 15319968 Z11.51 Z11.3 [id number] EMMIE Orellana [place] [address],[place] [address] 07/20/2023 10:58:15 07/20/2023 12:08:28 Insertion of intrauterine contraceptive device 22016333 Z30.430 Detailed health hx updated and reviewed [...] verbalized understand ing. Contracept ion care management 044071452 Z30.9 Removal of intrauterine contraceptive device 6834866603 Z30.432 [id number] EMMIE Orellana [place] [address] [address] 08/24/2023 09:45:24 08/24/2023 10:18:38 Gynecologic examination 65800109 Z01.419 WWEBC - mirena IUD, inserted 07/20/2023 [...] paper copy of today's plan if desired./ [id number] EMMIE Orellana [place] [address] [address] 12/16/2024 11:28:53 12/17/2024 12:34:57 Gynecologic examination 62679809 Z01.809 [id number] WWEBC - Mirena IUD (inserted 07/20/2023 and will 07/20/2031) Pap - done todaySTI screen - declinedMa mmogram - has scheduled/ PCPColon cancer [facility]PCPRTC [facility] 1 yr [...] questions have been answered. Cyst of ovary [id number] N 83.209 [id number] pelvic u/s ordered for further assessment of [...] Koroma Member ID Guarantor Name 12/19/2024 1 [facility] (MEDICAID HMO) [id number] Nora Forgy [id number] Nora Forgy Notes Date Note Type Note [...] happy with iudROS as noted in the [facility] Merna Dial CNM [address], [place], [address], [facility] 11/19/2020 10:29:05 01/21/20 22 text/ht [...] mild cramping monthlyROS as noted in the [facility] Merna Dial CNM [address], [place], [address], [facility] 01/20/2022 10:35:39 07/20/19 24 text/ht ml Patient presents for IUD removal/insertion.current Mirena IUD inserted 11/2015, will 11/2023 EMMIE Orellana [address], [place], [address], [facility] 07/20/2023 12:09:56 08/24/19 24 text/ht [...] no issues EMMIE Orellana [address], [place], [address], [place] [facility] 08/24/2023 10:16:46 12/17/19 25 text/ht ml [...] use, andencourage regular mammograms starting age 40.39yo [facility] - Mirena IUD, inserted 07/20/2023last pap 07/2023 : nilm, HPV (-)h/o LEEP in [address] scan (d/t diverticulitis) recently that showed ovarian cyst. Unsure size. No current symptoms.Her mother recently passed, diagnosed with ovarian CA age 58h/o colon CA paternal and maternal auntunsure if any family members have had genetic testing EMMIE Orellana [address], [place], [address], [facility] 12/17/2024 11:51:23 OBGyn Episode Ob Episode Information Episode Created Date Number of Fetuses Patient Bloodtype Patient rh Status Prepregnancy Weight lbs Domestic Partner Domestic Partner Phone Father Name Mobile Web Application Developer Status 10/14/19 1 CLOSED Fetus Data First [...] Domestic Partner Domestic Partner Phone Father Name Mobile Web Application Developer Status 10/14/19 20 1 CLOSED Fetus Data [...] Domestic Partner Domestic Partner Phone Father Name Mobile Web Application Developer Status 10/14/19 20 1 CLOSED Fetus Data [...] Domestic Partner Domestic Partner Phone Father Name Mobile Web Application Developer Status 10/14/19 20 1 CLOSED Fetus Data [...] Domestic Partner Domestic Partner Phone Father Name Mobile Web Application Developer Status 10/14/19 20 1 CLOSED Fetus Data [...]
--- OUTSIDE RECORDS SUMMARY | 2025-05-09 08:08 | XMS_ITS | Clinical Summary ---
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
--- OUTSIDE RECORDS SUMMARY | 2025-05-09 08:08 | XMS_ITS | Encounter Summary ---
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
[2025-05-09 08:10] VITALS: BP 155/82; PULSE 84; RESP 20; TEMP 36.2; O2SAT 98
--- NOTE | 2025-05-09 08:26 | ED_ITS ---
HPI - URI/Sore Throat General Chief Complaint: Upper Respiratory Infection Stated Complaint: Upper respiratory Time Seen by Provider: 05/09/25 08:15 Source: patient and RN notes reviewed Mode of arrival: ambulatory Limitations: no limitations History of Present Illness HPI Narrative: Patient presents today with a 5 day history of postnasal drip and nasal congestion, with cough and wheezing that started last night. Patient has tried Mucinex DM, Zyrtec, Tylenol, ibuprofen with short-term relief. She started her ProAir last night, which provides some short-term relief up to 1-2 hours. History of asthma. She last used her ProAir 4.5 hours prior to exam. Related Data Home Medications ?Medication ?Instructions ?Recorded ?Confirmed ?Last Taken ?Type cetirizine 10 mg capsule (Zyrtec) 10 mg PO DAILY PRN 0 08/05/24 03/12/25 Unknown History albuterol sulfate .ROUTE 05/09/25 Unknown His tory Allergies Allergy/AdvReac Type Severity Reaction Status Date / Time Penicillins Allergy Unknown Hives Verified 05/09/25 08:16 shellfish derived Allergy Hives Verified 05/09/25 08:16 [facility] Past Medical History Medical History Sinusitis Bronchitis Asthma Left radial fracture Cellulitis of right breast Abnormal colonoscopy diverticulosis Nausea Diverticulitis Hx gestational diabetes Surgical History Surgical History History of H/O dilation and curettage History of cholecystectomy Family History Family History Father Family history of premature coronary heart disease, Onset Age: 56 Hypertension Family history of cardiovascular disease, Onset Age: 56 Mother Diabetes mellitus Family history of obesity Family history of osteoporosis Depression Hypertension Grandparent Diabetes mellitus Family history of osteoporosis Family history of mental disorder Depression Sibling Depression Hypertension Sibling Suicide Other Suicide Other Family history of suicide Social History Social History Smoking packs per day: 0.5 Smoking cigarettes per day: 10.0 Smoking status: Current every day smoker Tobacco type: cigarettes and e-cigarettes/vaping Additional smoking assessment comments: no longer smoking cigarettes is vaping Alcohol intake: current Alcohol use details: rarely Substance use: never Substance use type: does not use Lack of Transportation: No Lack of Food: Never True Current Housing: I Have Housing Concerned About Future Housing: No Difficulty Paying Gas/Electric Bills: No Difficulty Paying for Meds: No Currently Unemployed: No Education: Trade/Vocational Certificate Difficulty w/ Childcare or Family Care: No Living arrangements: with family Gender identity (if verbalized by the patient): Female Comments At time of signature, I have reviewed and agree with nursing past medical, surgical, social and family history unless otherwise noted. Please see nursing chart for further information. There is no relevant family history pertinent to the presenting complaint Exam Narrative: GENERAL: Mildly ill-appearing, well-nourished, and in no acute distress. HEAD: Normocephalic, atraumatic. EYES: EOMI. No redness or drainage. Conjunctivae normal. ENT: Mucous membranes pink and moist. Nares congested with rhinorrhea. TMs normal bilaterally. Throat mildly erythematous without edema exudate. Uvula midline. NECK: Normal AROM. Supple. No lymphadenopathy. CHEST: No respiratory distress. Mild inspiratory wheezing throughout with mild expiratory wheezing in the upper lobes.. HEART: Regular rate and rhythm. No murmur appreciated. EXTREMITIES: Normal range of motion. No edema. SKIN: Warm, dry, no rash. Capillary refill normal. Normal skin turgor. NEURO: No focal deficits. Alert and oriented x3. Gait steady. PSYCH: Normal affect. No signs of depression or anxiety. Course Course Level of Care: Express Care Visit Vital Signs Vital signs: Vital Signs Temperature 97.1 F L 05/09/25 08:10 Pulse Rate 84 05/09/25 08:10 Respiratory Rate 20 05/09/25 08:10 Blood Pressure 155/82 H 05/09/25 08:10 Pulse Oximetry 98 05/09/25 08:10 Oxygen Delivery Room Air 05/09/25 08:10 Temperature 97.1 F L 05/09/25 08:10 Pulse Rate 91 05/09/25 08:54 Respiratory Rate 20 05/09/25 08:54 Blood Pressure 155/82 H 05/09/25 08:10 Pulse Oximetry 100 05/09/25 08:54 Oxygen Delivery Room Air 05/09/25 08:10 Reviewed MDM MDM Narrative Medical decision making narrative: Patient presents today with a 5 day history of postnasal drip and nasal yolanda estion, with cough and wheezing that started last night. Patient has tried Mucinex DM, Zyrtec, Tylenol, ibuprofen with short-term relief. She started her ProAir last night, which provides some short-term relief up to 1-2 hours. History of asthma. She last used her ProAir 4.5 hours prior to exam. Upon exam, patient is mildly ill appearing with nasal congestion, rhinorrhea. She has some inspiratory and expiratory wheezes. After Duoneb treatment, patient's wheezing has significantly improved and patient states she is feeling better. Symptoms likely viral in etiology, exacerbating her asthma. Discussed [id number] medication use and duration of illness. Prescription for prednisone and refill of her albuterol inhaler will be sent to pharmacy. Anticipatory guidance given. ED precautions given. Differential Diagnosis Differential Diagnosis: URI, pneumonia, sinusitis, asthma exacerbation Critical Care Time Critical Care Time Critical Care Time: No Discharge Plan Discharge Clinical Impression: Upper respiratory infection Qualifiers: URI type: unspecified URI Qualified Code(s): J06.9 - Acute upper respiratory infection, unspecified Asthma exacerbation Qualifiers: Asthma severity: unspecified severity Asthma persistence: unspecified Qualified Code(s): J45.901 - Unspecified asthma with (acute) exacerbation Patient Disposition: Home Condition: Stable Instructions: Upper Respiratory Infection (DC) Additional Instructions: Your symptoms are likely due to a viral illness exacerbating your asthma, which is not treated with antibiotics. Take the prednisone and use your albuterol inhaler as prescribed. Virus symptoms can last for up to 7-10days. Take Tylenol or ibuprofen for pain or fever. Rest and stay hydrated. Follow up with your PCP in 7 days if symptoms are not improving. Go to the ER immediately if you develop shortness of breath, difficulty swallowing, or any other concerning symptoms. Patient Language: Nauruan Prescriptions: New albuterol sulfate 90 mcg/actuation HFA aerosol inhaler 2 inh inhalation Q4-6H PRN (Reason: shortness of breath or wheezing) Qty: 8.5 0RF prednisone 50 mg tablet 50 mg PO DAILY 5 Days Qty: 5 0RF No Action albuterol sulfate [ProAir HFA] .ROUTE Zyrtec 10 mg capsule 10 mg PO DAILY PRN trazodone 50 mg tablet 50 mg PO HS PRN (Reason: Insomnia) Qty: 90 3RF propranolol 10 mg tablet 10 mg PO TID Qty: 90 1RF Follow-up/Referrals: Lynsey Jewell MD [Primary Care Provider, [facility]] Time of Disposition: 09:02
[2025-05-09] MEDS: ALBUTEROL SULFATE NEB 2.5 MG/3 ML INH INHALATION (08:32)
[2025-05-09] MEDS: IPRATROPIUM BR 0.02% INH SOLN 0.5 MG/2.5 ML VIAL INHALATION (08:32)
[2025-05-09 08:54] VITALS: PULSE 91; RESP 20; O2SAT 100
== END 2025-05-09 09:05 | disposition home or self-care (01) ==
PROVIDERS: Emergency Provider Nurse Practitioner; PCP Family Medicine
DX: J06.9 Acute upper respiratory infection, unspecified (principal); J45.901 Unspecified asthma with (acute) exacerbation; F17.290 Nicotine dependence, other tobacco product, uncomplicated
CPT/HCPCS: 94640; 99213; G0463